=== PATIENT | male | born 1950 | race Caucasian/White ===

== ENCOUNTER → 2017-09-30 | Outpatient (CLI) | payer MEDICARE, MEDICAID ==
--- NOTE | 2017-09-30 10:05 | Diagnostic Imaging Report ---
INDICATION: Left testicular pain. FINDINGS: The right testicle is surgically absent. The left testicle measures 5.3 x 1.8 x 3.5 cm. There is homogeneous echotexture throughout the left testicle. No mass is identified. There is normal blood flow to the left testicle. No hydrocele or varicocele is identified. There appears to be echogenicity within the left inguinal canal suggestive of left inguinal hernia. IMPRESSION: No evidence of testicular mass or vascular compromise. There does appear to be left inguinal hernia. Dictated by: Dictated on workstation # [id number]
== END ==
LOC: RAD 08:21
PROVIDERS: ATTEND Urology
DX: N50.811 Right testicular pain (principal); Z85.47 Personal history of malignant neoplasm of testis
CPT/HCPCS: 76870

== ENCOUNTER 2017-11-03 05:41 | Outpatient (CLI) | payer MEDICARE, MEDICAID ==
[~2017-11-03] VITALS: Ht 177.8 cm; Wt 93.0 kg
[2017-11-03] MEDS ORDERED: HYDR12.525 PO (14:01)
[2017-11-03] MEDS ORDERED: ATEN100T PO (14:01)
[2017-11-03] MEDS ORDERED: TAMS0.4C2 PO (14:01)
[2017-11-03] MEDS ORDERED: AMLO10TA2 PO (14:01)
== END 2017-11-03 14:14 ==
LOC: PREOP 05:41
PROVIDERS: ATTEND Surgery
DX: Z01.818 Encounter for other preprocedural examination (principal); K40.90 Unilateral inguinal hernia, without obstruction or gangrene, not specified as recurrent

== ENCOUNTER 2017-11-05 08:04 | Day surgery (SDC) | payer MEDICARE, MEDICAID ==
[~2017-11-05] VITALS: Ht 177.8 cm; Wt 93.0 kg
[~2017-11-05 08:04] MED LIST: AMLO10TA2 PO; ATEN100T PO; HYDR12.525 PO; TAMS0.4C2 PO
--- OUTSIDE RECORDS SUMMARY | 2017-11-05 08:08 | XMS REPORT ---
Author Author MELI MELARA [facility] Address [address] [place] [address] Care Team Providers Care Yellow Pages Space Salesperson Name Role Phone MELI MELARA Unavailable PROBLEMS Type Condition ICD9-CM Code [id number] Code Onset Dates Condition Status SNOMED Code Problem VANESSA (obstructive sleep apnea) G47.33 Active 62530239 Problem Other chronic pain G89.29 Active 40874963 Problem Hypertension, benign I10 Active 48091073 Problem Essential hypertension I10 Active 40587887 Problem Hypercholesterolemia E78.0 Active 42866827 ALLERGIES Substance Reaction Event Type Date Status Sinemet Unknown Drug Allergy Jul, Active Lipitor Unknown Drug Allergy Jul, Active SOCIAL HISTORY No smoking Hx information available PLAN OF CARE VITAL SIGNS Height 70 in 2016-07-22 Weight 203.6 lbs 2016-07-22 Temperature 97.8 degrees Fahrenheit 2016-07-22 Heart Rate 82 bpm 2016-07-22 Respiratory Rate 20 2016-07-22 BMI 29.21 kg/m2 2016-07-22 Blood pressure systolic 122 mmHg 2016-07-22 Blood pressure diastolic 80 mmHg 2016-07-22 MEDICATIONS Medication Instructions Dosage Frequency Start Date End Date Duration Status Valium 10 mg take 1 tablet by Oral route 2 times per day as needed Aug, Active Fish Oil 1 gram 3 capsule by Oral route 1 time per day November, Active Atenolol 100 MG Orally Once a day 1 tablet 24h 30 Active Amlodipine Besylate 10 MG Orally Once a day 1 tablet 24h 30 Active RESULTS No Results PROCEDURES Procedure Date Ordered Related Diagnosis Body Site JOINT INJECTION-LARGE JOINT 2016-07-22 N/A DRAIN/INJECT, JOINT/BURSA Jul 22, 2016 Office Visit, Est Pt., Level 2 Jul 22, 2016 [facility] VISIT ESTABLISHED PATIENT Jul 22, 2016 IMMUNIZATIONS No Known Immunizations
--- OUTSIDE RECORDS SUMMARY | 2017-11-05 08:08 | XMS REPORT ---
Author Author MELI MELARA Organization [employer] Address Unknown Phone Unavailable Care Team Providers Care Landscape Contractor Name Role Phone MELI MELARA CP Unavailable Allergies No Known Allergies Problems Problem Type Condition Code Onset Dates Condition Status Problem Allergic rhinitis due to pollen 477.0 Active Problem Hypertension 401.9 Active Problem Anxiety state, unspecified 300.00 Active Problem Hypertension, benign I10 Active Problem DTAP TEST V06.1 Active Problem Need for prophylactic vaccination and inoculation, Influenza V04.81 Active Problem Pure hypercholesterolemia 272.0 Active Problem Inguinal hernia without mention of obstruction or gangrene, unilateral or unspecified, (not specified as recurrent) 550.90 Active Medications Medication Code System Code Instructions Start Date End Date Status Dosage Amlodipine Besylate [facility] [address]-57 5 MG Orally Once a day 1 tablet Results No Known Results Summary Purpose [employer] Submission
--- OUTSIDE RECORDS SUMMARY | 2017-11-05 08:08 | XMS REPORT ---
Author Author MELI MELARA [facility] Address [address] [place] [address] Care Team Providers Care Soaping Department Supervisor Name Role Phone MELI MELARA Unavailable PROBLEMS Type Condition ICD9-CM Code [id number] Code Onset Dates Condition Status SNOMED Code Problem VANESSA (obstructive sleep apnea) G47.33 Active 84649830 Problem Other chronic pain G89.29 Active 08518678 Problem Hypertension, benign I10 Active 19744920 Problem Essential hypertension I10 Active 48326850 Problem Hypercholesterolemia E78.0 Active 29902284 ALLERGIES No Information SOCIAL HISTORY Never Assessed PLAN OF CARE VITAL SIGNS MEDICATIONS Medication Instructions Dosage Frequency Start Date End Date Duration Status Valium 10 MG Orally Twice a day 1 tablet as needed 12h Aug, 28 days Active RESULTS No Results PROCEDURES No Known procedures IMMUNIZATIONS No Known Immunizations MEDICAL (GENERAL) HISTORY Type Description Date Medical History hypertension Medical History hereditary spherocytosis Medical History hyperlipidemia Medical History insomnia Medical History testicular cancer Medical History restless leg syndrome Medical History Gout Medical History allergic rhinitis Medical History anxiety Surgical History orchiectomy with radiation 1984 Hospitalization History surgery
--- OUTSIDE RECORDS SUMMARY | 2017-11-05 08:08 | XMS REPORT ---
Author Author MELI MELARA Organization [employer] Address Unknown Phone Unavailable Care Team Providers Care Remote Medical Coder Name Role Phone MELI MELARA CP Unavailable Allergies, Adverse Reactions, Alerts Substance Reaction Event Type Sinemet Info Not Available Drug Allergy Norvasc Info Not Available Drug Allergy Lipitor Info Not Available Drug Allergy Problems Problem Type Condition ICD-9 Code Onset Dates Condition Status Assessment HTN (hypertension) 401.9 Active Problem Anxiety state, unspecified 300.00 Active Problem Pure hypercholesterolemia 272.0 Active Problem Hypertension 401.9 Active Problem Need for prophylactic vaccination and inoculation, Influenza V04.81 Active Problem Allergic rhinitis due to pollen 477.0 Active Problem Inguinal hernia without mention of obstruction or gangrene, unilateral or unspecified, (not specified as recurrent) 550.90 Active Problem DTAP TEST V06.1 Active Medications Medication Code System Code Instructions Start Date End Date Status Dosage Fish Oil [facility] [address]-93 1 gram November 11, 2011 3 capsule by Oral route 1 time per day Zinc [facility] [address]382 100 MG Orally Once a day 1 tablet with a meal Vitamin D [facility] [address]-97 1000 UNIT Orally Once a day 1 tablet Procedures Procedure Coding System Code Date Office Visit, Est Pt., Level 3 CPT-4 44147 Feb 21, 2015 [facility] VISIT ESTABLISHED PATIENT CPT-4 G0467 Feb 21, 2015 Vital Signs Date/Time: Feb 21, 2015 Temperature 98.0 F Weight 199 lbs Height 70 in BMI 28.55 Index Blood Pressure Diastolic 102 mmHg Blood Pressure Systolic 150 mmHg Cardiac Monitoring Heart Rate 80 bpm Results No Known Results Summary Purpose [employer]ClinicalWorks Submission
--- OUTSIDE RECORDS SUMMARY | 2017-11-05 08:08 | XMS REPORT ---
Author Author MELI MELARA [facility] e[employer] Address Unknown Phone Unavailable Care Team Providers Care Autoclave Operator Name Role Phone MELI MELARA CP Unavailable Allergies No Known Allergies Problems Problem Type Condition Code Onset Dates Condition Status Assessment Encounter for immunization Z23 Active Problem Anxiety state, unspecified 300.00 Active Problem Pure hypercholesterolemia 272.0 Active Problem Hypertension 401.9 Active Problem Need for prophylactic vaccination and inoculation, Influenza V04.81 Active Problem Allergic rhinitis due to pollen 477.0 Active Problem Inguinal hernia without mention of obstruction or gangrene, unilateral or unspecified, (not specified as recurrent) 550.90 Active Problem DTAP TEST V06.1 Active Medications No Known Medications Procedures Procedure Coding System Code Date ADMN FLU VAC NO FEE SCHED SAME DAY CPT-4 G0008 Apr 05, 2015 FLUARIX QUAD (3 & UP)-GSK-2014 CPT-4 33585 Apr 05, 2015 Results No Known Results Immunizations Vaccine Administration Date FLUARIX QUAD (3 & UP)-GSK-2014Apr 05, 2015 Summary Purpose eClinicalWorks Submission
--- OUTSIDE RECORDS SUMMARY | 2017-11-05 08:08 | XMS REPORT ---
Author Author MELI MELARA Organization [facility] Address [address] [place] [address] Care Team Providers Care Information Assurance Manager Name Role Phone MELI MELARA Unavailable PROBLEMS Type Condition ICD9-CM Code [id number] Code Onset Dates Condition Status SNOMED Code Problem VANESSA (obstructive sleep apnea) G47.33 Active 86211142 Problem Other chronic pain G89.29 Active 03364408 Problem Hypertension, benign I10 Active 67292935 Problem Essential hypertension I10 Active 21373449 Problem Hypercholesterolemia E78.0 Active 89918805 ALLERGIES No Information SOCIAL HISTORY Never Assessed PLAN OF CARE VITAL SIGNS Height 70 in 2016-08-20 Blood pressure systolic 140 mmHg 2016-08-20 Blood pressure diastolic 88 mmHg 2016-08-20 MEDICATIONS Medication Instructions Dosage Frequency Start Date End Date Duration Status Fish Oil 1 gram 3 capsule by Oral route 1 time per day November, Active Valium 10 mg take 1 tablet by Oral route 2 times per day as needed Aug, Active Amlodipine Besylate 10 MG Orally Once a day 1 tablet 24h 30 Active Atenolol 100 MG Orally Once a day 1 tablet 24h 30 Active RESULTS No Results PROCEDURES No Known procedures IMMUNIZATIONS No Known Immunizations MEDICAL (GENERAL) HISTORY Type Description Date Medical History hypertension Medical History hereditary spherocytosis Medical History hyperlipidemia Medical History insomnia Medical History testicular cancer Medical History restless leg syndrome Medical History Gout Medical History allergic rhinitis Medical History anxiety Surgical History orchiectomy with radiation 1983 Hospitalization History surgery
--- OUTSIDE RECORDS SUMMARY | 2017-11-05 08:09 | XMS REPORT ---
Author Author MELI MELARA Organization [employer] Address Unknown Phone Unavailable Care Team Providers Care Color Straining Bag Washer Name Role Phone MELI MELARA CP Unavailable Allergies No Known Allergies Problems Problem Type Condition Code Onset Dates Condition Status Problem Hypertension, benign I10 Active Problem Hypercholesterolemia E78.0 Active Medications Medication Code System Code Instructions Start Date End Date Status Dosage Valium [facility] [address]-72 10 MG Aug 07, 2014 take 1 tablet by Oral route 2 times per day Results No Known Results Summary Purpose eClinicalWorks Submission
--- OUTSIDE RECORDS SUMMARY | 2017-11-05 08:09 | XMS REPORT ---
Author Author MELI MELARA Organization [employer] Address Unknown Phone Unavailable Care Team Providers Care Jacquard Loom Heddles Tier Name Role Phone MELI MELARA CP Unavailable Allergies No Known Allergies Problems Problem Type Condition Code Onset Dates Condition Status Problem Hypertension, benign I10 Active Assessment Hypertension 401.9 Active Problem Hypercholesterolemia E78.0 Active Medications Medication Code System Code Instructions Start Date End Date Status Dosage Valium [facility] [address]-60 10 MG Aug 07, 2014 take 1 tablet by Oral route 2 times per day Results No Known Results Summary Purpose eClinicalWorks Submission
--- OUTSIDE RECORDS SUMMARY | 2017-11-05 08:09 | XMS REPORT ---
Author Author MELI MELARA Organization [employer] Address Unknown Phone Unavailable Care Team Providers Care Stencil Inspector Name Role Phone MELI MELAAR CP Unavailable Allergies, Adverse Reactions, Alerts Substance Reaction Event Type Sinemet Info Not Available Drug Allergy Norvasc Info Not Available Drug Allergy Lipitor Info Not Available Drug Allergy Problems Problem Type Condition ICD-9 Code Onset Dates Condition Status Assessment Hypertension 401.9 Active Problem Anxiety state, unspecified [...] Start Date End Date Status Dosage Valium [facility] [address]-37 10 MG Aug 07, 2014 take 1 tablet by Oral route 2 times per day Vitamin D [facility] [address]-79 1000 UNIT Orally Once a day 1 tablet Fish Oil [facility] [address]-12 1 gram November 11, 2011 3 capsule by Oral route 1 time per day Zinc [facility] [address]69 100 MG Orally Once a day 1 tablet with a meal Metoprolol Tartrate [facility] 24367405137 100 MG TAKE ONE TABLET BY MOUTH TWICE DAILY Amlodipine Besylate [facility] 78366528854 2.5 MG Orally Once a day 1 tablet Procedures Procedure Coding System Code Date Office Visit, Est Pt., Level 3 CPT-4 03514 Mar 23, 2015 [facility] VISIT ESTABLISHED PATIENT CPT-4 G0467 Mar 23, 2015 Vital Signs Date/Time: Mar 23, 2015 Temperature 97.5 F Weight 195.1 lbs Height 70 in BMI 27.99 Index Blood Pressure Diastolic 94 mmHg Blood Pressure Systolic 130 mmHg Cardiac Monitoring Heart Rate 68 bpm Results No Known Results Summary Purpose eClinicalWorks Submission
--- OUTSIDE RECORDS SUMMARY | 2017-11-05 08:09 | XMS REPORT ---
Author Author MELI MELARA Organization [employer] Address Unknown Phone Unavailable Care Team Providers Care Purchase Request Editor Name Role Phone MELI MELARA CP Unavailable Allergies, Adverse Reactions, Alerts Substance Reaction Event Type Sinemet Info Not Available Drug Allergy Lipitor Info Not Available Drug Allergy Problems Problem Type Condition Code Onset Dates Condition Status Problem Hypertension, benign I10 Active Assessment Benign non-nodular prostatic hyperplasia with lower urinary tract symptoms N40.1 Active Problem Hypercholesterolemia E78.0 Active Assessment Hypertension, benign I10 Active Medications Medication Code System Code Instructions Start Date End Date Status Dosage Metoprolol Tartrate [facility] [address]-38 100 MG Twice a day 1 tablet Triamcinolone Acetonide [facility] [address]-92 0.1 % Externally Twice a day November 12, 2015 Apply thin layer to the rash Fish Oil [facility] [address]-53 1 gram November 11, 2011 3 capsule by Oral route 1 time per day Zinc [facility] [address]42 100 MG Orally Once a day 1 tablet with a meal Valium [facility] [address]-44 10 MG Aug 07, 2014 take 1 tablet by Oral route 2 times per day Amlodipine Besylate [facility] [address]-28 10 MG Orally Once a day 1 tablet Vistaril [facility] [address]-80 25 MG Orally every 8 hrs November 12, 2015 1 capsule as needed Vitamin D [facility] [address]-70 1000 UNIT Orally Once a day 1 tablet Procedures Procedure Coding System Code Date Office Visit, Est Pt., Level 3 CPT-4 20521 January 17, 2016 [facility] VISIT ESTABLISHED PATIENT CPT-4 G0467 January 17, 2016 Vital Signs Date/Time: January 17, 2016 Cardiac Monitoring Heart Rate 64 bpm Weight 197.7 lbs Height 70 in Blood Pressure Diastolic 86 mmHg Blood Pressure Systolic 136 mmHg Results No Known Results Summary Purpose eClinicalWorks Submission
--- OUTSIDE RECORDS SUMMARY | 2017-11-05 08:09 | XMS REPORT ---
Author Author MELI MELARA [facility] eClinicalWorks Address Unknown Phone Unavailable Care Team Providers Care Mining Consultant Name Role Phone MELI MELARA CP Unavailable Allergies, Adverse Reactions, Alerts Substance Reaction Event Type Sinemet Info Not Available Drug Allergy Lipitor Info Not Available Drug Allergy Problems Problem Type Condition Code Onset Dates Condition Status Problem Hypercholesterolemia E78.0 Active Problem Hypertension, benign I10 Active Problem Essential hypertension I10 Active Assessment Essential hypertension I10 Active Assessment Pure hypercholesterolemia E78.00 Active Medications Medication Code System Code Instructions Start Date End Date Status Dosage Valium [facility] [address]-21 10 mg Aug 07, 2014 take 1 tablet by Oral route 2 times per day as needed Fish Oil [facility] [address]-35 1 gram November 11, 2011 3 capsule by Oral route 1 time per day Procedures Procedure Coding System Code Date Office Visit, Est Pt., Level 3 CPT-4 33151 Apr 24, 2016 [facility] VISIT ESTABLISHED PATIENT CPT-4 G0467 Apr 24, 2016 Vital Signs Date/Time: Apr 24, 2016 Cardiac Monitoring Heart Rate 84 bpm Weight 199.6 lbs Height 70 in BMI 28.64 Index Blood Pressure Diastolic 84 mmHg Blood Pressure Systolic 132 mmHg Results No Known Results Summary Purpose eClinicalWorks Submission
--- OUTSIDE RECORDS SUMMARY | 2017-11-05 08:09 | XMS REPORT ---
Author Author MELI MELARA Organization [facility] Address [address] [place] [address] Care Team Providers Care Carry Out Clerk Name Role Phone KELTON MELI Unavailable PROBLEMS Type Condition ICD9-CM Code [id number] Code Onset Dates Condition Status SNOMED Code Problem VANESSA (obstructive sleep apnea) G47.33 Active 84901966 Problem Other chronic pain G89.29 Active 40899099 Problem Hypertension, benign I10 Active 29626938 Problem Essential hypertension I10 Active 34002412 Problem Hypercholesterolemia E78.0 Active 72449481 ALLERGIES No Information ENCOUNTERS Encounter Location Date Diagnosis [place] [address] [address] Sep, Nocturnal polyuria R35.1 and Dysuria R30.0 [facility] [address] [address]- 8435 Jun, Hypertension, benign I10 [place] [address] 7110[address]- 3656 Apr, Encounter for immunization Z23 [place] [address] [address]- 60[address] Jan, Hypertension, benign I10 and VANESSA (obstructive sleep apnea) G47.33 [facility] [address] [place] [id number] [place] [address] 82205- 5650 Jan, Hypertension, benign I10 and VANESSA (obstructive sleep apnea) G47.33 [place] [address] [address]- [address] Jan, [place] [address] 25944- 7082 November, Hypertension, benign I10 [place] [address] [place] [id number] [place] [address] 48739- 6787 15 Aug, 2016 [facility] [address] [place] [id number] [place] [address] 07328- 1366 17 Jul, 2016 Other chronic pain G89.29 and Pain in left shoulder M25.512 [facility] [address] [place] [id number] [place] [address] 34967- 3001 16 Jul, 2016 Other chronic pain G89.29 ; Pain in left shoulder M25.512 and Hypertension, benign I10 [facility] [address] [place] [id number] [place] [address] 43667- 9630 Jun, [facility] [address] 93282- 8854 Jun, Hypertension, benign I10 [facility] [address] [place] [id number] [place] [address] 18617- 5251 Apr, Essential hypertension I10 and Pure hypercholesterolemia E78.00 [facility] [address] [place] [id number] [place] [address] 23353- 7796 Feb, [facility] [address] [place] [id number] [place] [address] 02945- 0774 Jan, [facility] [address] [place] [id number] [place] [address] 20825- 8939 Jan, [facility] [address] [place] [id number] [place] [address] 20340- 2265 Jan, Benign non-nodular prostatic hyperplasia with lower urinary tract symptoms N40.1 and Hypertension, benign I10 [facility] [id number] [place] [address] 01649- 4401 Jan, Benign non-nodular prostatic hyperplasia with lower urinary tract symptoms N40.1 and Hypertension, benign I10 [facility] [address] [place] [id number] [place] [address] 36045- 6744 Dec, [facility] [address] [place] [id number] [place] [address] 53210 -7114 November, Contact dermatitis, unspecified contact dermatitis type, unspecified trigger L25.9 [facility] [address] [place] [id number] [place] [address] 80859- 4287 Oct, [facility] [address] [place] [id number] [place] [address] 02519- 7616 Oct, Hypertension, benign I10 [facility] [address] 35735- 8457 Sep, [facility] [address] [place] [id number] [place] [address] 31748 -4777 Aug, Left shoulder pain M25.512 [facility] [address] 91319- 7876 Jul, Hypertension, benign I10 [facility] [address] [place] [id number] [place] [address] 27638- 3533 Jul, Hypertension 401.9 [facility] [address] 75774- 8208 May, Hypertension, benign I10 ; Anxiety F41.9 and Hypercholesterolemia E78.0 [facility] [address] 58157- 2987 May, [facility] [address] [place] [id number] [place] [address] 70831- 5498 Apr, [facility] [address] 90221- 4320 Apr, Hypertension, benign I10 [facility] [address] [place] [id number] [place] [address] 63849- 4110 Apr, Hypertension, benign I10 [facility] [address] 00293- 6235 Apr, Encounter for immunization Z23 [facility] [address] [place] [id number] [place] [address] 11112- 1980 Mar, Hypertension 401.9 [place] [address] [facility] [id number] [address] Feb, HTN (hypertension) 401.9 [facility] [address] [facility] [id number] [place] [address] Jan, HTN (hypertension) 401.9 [facility] [address] [facility] [id number] [place] [address]- 6226 Dec, Hypertension 401.9 [facility] [address] [facility] [id number] [place] 6101 November, Hypertension 401.9 [facility] [address] [facility] [id number] [place] [address] November, [facility] [address] [facility] [id number] [place] [address]- 0081 November, [facility] [address] [address]- 9353 November, [facility] [address] [facility] [id number] [place] [address]- 6609 Oct, [facility] [address] [place] [id number] [address]- 9403 Oct, [facility] [address] [place] [id number] [place] [address]- 1404 Sep, [facility] [address] [place] [id number] [address]- 6683 Sep, [facility] [address] [facility] [id number][place] [address]- 1177 Sep, [facility] [address] [id number] [place] [address]- 1187 Sep, [facility] [address] [facility] [id number] [place] 6076 Sep, [facility] [address] [facility] [id number] [address]- 8363 Sep, [facility] [place] [facility] [address] [id number] [place] [address]- 7589 Sep, [facility] [place] [facility] [address] [id number] [place] [address]- 6301 Sep, [facility] [place] [facility] [address] [id number] [place] [address]- 7276 Aug, 2014 [facility] [place] [facility] [address] [id number] [place] [address]- 4126 Aug, [facility] [place] [facility] [address] [id number] [place] [address]- 6046 Aug, 2014 [facility] [place] [facility] [address] [id number] [place] [address]- 4366 Aug, [facility] [place] [facility] [address] [id number] [place] [address]- 4325 Aug, [facility] [place] [facility] [address] [id number] [place] [address]- 6463 Aug, [facility] [place] [facility] [address] [id number] [place] [address]- 4252 Jul, [facility] [place] [facility] [address] [id number] [place] [address]- 5949 Jul, [facility] [place] [facility] [address] [id number] [place] [address]- 6865 Jul, [facility] [place] [facility] [address] [id number] [place] [address]- 4620 Jul, [facility] [place] [facility] [address] [id number] [place] [address]- 2121 Jul, [facility] [place] [facility] [address] [id number] [place] [address]- 0550 Jul, [facility] [place] [facility] [address] [id number] [place] [address]- 8069 Jul, [facility] [place] [facility] [address] [id number] [place] [address]- 1991 Jul, [facility] [place] [facility] [address] [id number] [place] [address]- 0811 Jul, [facility] [place] [facility] [address] [id number] [place] [address]- 5120 Jul, [facility] [place] [facility] [address] [id number] [place] [address]- 3000 Jun, [facility] [place] [facility] [address] [id number] [place] [address]- 3003 Jun, [facility] [place] [facility] [address] [id number] [place] [address]- 3281 May, [facility] [place] [facility] [address] [id number] [place] [address]- 4817 May, [facility] [place] [facility] [address] [id number] [place] [address]- 9941 Apr, [facility] [place] [facility] [address] [id number] [place] [address]- 3491 Apr, [facility] [place] [facility] [address] [id number] [place] [address]- 3865 Apr, [facility] [place] [facility] [address] [id number] [place] [address]- 6568 Apr, [facility] [place] [facility] [address] [id number] [place] [address]- 5332 Apr, [facility] [place] [facility] [address] [id number] [address]- 9314 Apr, [facility] [place] [facility] [address] [id number] [place] [address]- 7933 Apr, [facility] [place] [facility] [address] [id number] [place] [address]- 6669 Apr, [facility] [place] [facility] [address] [id number][place] [address]- 4526 Apr, [facility] [place] [facility] [address] [id number] [place] [address]- 5984 Apr, [facility] [place] [facility] [address] [id number] [place] [address]- 6486 Mar, [facility] [place] [facility] [address] [id number] [place] 7070 Mar, [facility] [place] [facility] [address] [id number] [place] [address]- 3255 November, [facility] [place] [facility] [address] [id number] [place] [address]- 7929 November, [facility] [place] [facility] [address] [id number] [place] [address]- 0136 Sep, [facility] [place] [facility] [address] [id number] [place] [address]- 7133 Sep, [facility] [place] [facility] [address] [id number] [place] [address]- 9599 Jun, [facility] [place] [facility] [address] [id number] [place] [address]- 8694 Jun, [facility] [place] [facility] [address] [id number] [place] [address]- 6191 Jun, [facility] [place] [facility] [address] [id number] [place] [address]- 1718 Jun, [facility] [place] [facility] [address] [id number] [place] [address]- 4989 Apr, [facility] [place] [facility] [address] [id number] [place] [address]- 7970 24 Mar, 2013 [facility] [place] [facility] [address] [id number] [place] [address]- 3526 06 Mar, 2013 [facility] [place] [facility] [address] [id number] [place] [address]- 3785 06 Mar, 2013 [facility] [place] [facility] [address] [id number] [place] [address]- 1381 Feb, [facility] [place] [facility] [address] [id number] [place] [address]- 0209 Jan, [facility] [place] [facility] [address] [id number] [place] [address]- 6928 November, [facility] [place] [facility] [address] [id number] [place] [address]- 8085 November, [facility] [place] [facility] [address] [id number] [place] [address]- 9195 Oct, [facility] [place] [facility] [address] [id number] [place] [address]- 6831 Aug, [facility] [place] [facility] [address] [id number] [place] [address]- 4517 Jun, [facility] [place] [facility] [address] [id number] [place] [address]- 5025 Jun, [facility] [place] [facility] [address] [id number] [place] [address]- 5350 May, [facility] [place] [facility] [address] [id number] [place] [address]- 1038 May, [facility] [place] [facility] [address] [id number] [place] [address]- 9509 May, [facility] [place] [facility] [address] [id number][place] [address]- 3392 May, [facility] [place] [facility] [address] [id number][place] [address]- 3790 May, [facility] [place] [facility] [address] [id number] [place] [address]- 2674 May, [facility] [place] [facility] [address] [id number] [place] [address]- 8953 May, [facility] [place] [facility] [address] [id number] [place] [address]- 9018 May, [facility] [place] [facility] [address] [id number] [place] [address] 2546 May, [facility] [address] [id number] [place] [address]- 1496 May, [facility] [address] [id number] [place] [address] 2546 Apr, [facility] [address] [id number] [place] [address]- 0776 Mar, [facility] [address] [id number] [place] [address] 2546 Mar, [facility] [address] [id number] [place] [address]- 9966 Feb, [facility] [address] [id number] [place] [address]- 2676 November, [facility] [address] [id number] [place] [address]- 9927 Sep, [facility] [address] [id number] [place] [address]- 7321 14 Sep, 2011 [facility] [address] [id number] [place] [address]- 4046 Sep, [facility] [address] [facility] [id number] [place] [address]- 0083 Sep, [facility] [address] [id number] [place] [address]- 9096 Jul, [facility] [address] [id number] [place] [address]- 2775 Jun, [facility] [place] [facility] [address] [id number] [place] [address]- 3616 Jun, [facility] [place] [facility] [address] [id number] [place] [address]- 2546 Jun, [facility] [address] [id number] [place] [address]- 7366 Apr, [facility] [address] [id number] [address]- 7030 Jan, [facility] [address] [address]- 8165 Dec, [facility] [address] 5934 Aug, [facility] [address] [address]- 0993 May, [facility] [address] [address]- 4636 May, [facility] [address] [address]- 6917 May, [facility] [address] [address]- 3418 May, [facility] [address] [address]- 1503 Apr, [facility] [address] [place] [id number] [address]- 8659 Aug, [facility] [address] [place] [id number] [address]- 3031 Jul, [facility] [address] [id number] [address]- 4495 Dec, IMMUNIZATIONS No Known Immunizations SOCIAL HISTORY Never Assessed REASON FOR VISIT Lab (walk-in) PLAN OF CARE VITAL SIGNS MEDICATIONS No Known Medications RESULTS Name Result Date Reference Range TSH 2017-01-30 TSH 0.762 0.450-4.500 CBC 2017-01-30 WBC 8.1 3.4-10.8 RBC 4.94 4.14-5.80 Hemoglobin 14.7 12.6-17.7 Hematocrit 44.5 37.5-51.0 MCV 90 79-97 MCH 29.8 26.6-33.0 MCHC 33.0 31.5-35.7 RDW 13.6 12.3-15.4 Platelets 210 150-379 Neutrophils 57 Lymphs 35 Monocytes 6 Eos 2 Basos 0 Neutrophils (Absolute) 4.6 1.4-7.0 Lymphs (Absolute) 2.8 0.7-3.1 Monocytes(Absolute) 0.5 0.1-0.9 Eos (Absolute) 0.1 0.0-0.4 Baso (Absolute) 0.0 0.0-0.2 Immature Granulocytes 0 Immature Grans (Abs) 0.0 0.0-0.1 LIPID PANEL 2017-01-30 Cholesterol, Total 233 100-199 Triglycerides 115 0-149 HDL Cholesterol 37 >39 VLDL Cholesterol Parth 23 5-40 LDL Cholesterol Calc 173 0-99 Comment: CMP 2017-01-30 Glucose, Serum 95 65-99 BUN 16 8-27 Creatinine, Serum 1.10 0.76-1.27 eGFR If NonAfricn Am 69 >59 eGFR If Africn Am 79 >59 BUN/Creatinine Ratio 15 10-24 Sodium, Serum 138 134-144 Potassium, Serum 4.5 3.5-5.2 Chloride, Serum 99 96-106 Carbon Dioxide, Total 23 18-29 Calcium, Serum 9.8 8.6-10.2 Protein, Total, Serum 8.2 6.0-8.5 Albumin, Serum 4.2 3.6-4.8 Globulin, Total 4.0 1.5-4.5 A/G Ratio 1.1 1.2-2.2 Bilirubin, Total 0.5 0.0-1.2 Alkaline Phosphatase, S 86 39-117 AST (SGOT) 18 0-40 ALT (SGPT) 22 0-44 PROCEDURES Procedure Date Ordered Result Body Site LAB NOT BILLED BY [facility] January 30, 2017 VENIPUNCT, ROUTINE* January 30, 2017 INSTRUCTIONS MEDICATIONS ADMINISTERED No Known Medications MEDICAL (GENERAL) HISTORY Type Description Date Medical History hypertension Medical History hereditary spherocytosis Medical History hyperlipidemia Medical History insomnia Medical History testicular cancer Medical History restless leg syndrome Medical History Gout Medical History allergic rhinitis Medical History anxiety Surgical History orchiectomy with radiation 1983 Hospitalization History surgery
--- OUTSIDE RECORDS SUMMARY | 2017-11-05 08:09 | XMS REPORT ---
Author Author MELI MELARA Organization [employer] Address Unknown Phone Unavailable Care Team Providers Care Cat Operator Name Role Phone MELI MELARA CP Unavailable Allergies No Known Allergies Problems Problem Type Condition Code Onset Dates Condition Status Problem Hypertension, benign I10 Active Problem Hypercholesterolemia E78.0 Active Medications Medication Code System Code Instructions Start Date End Date Status Dosage Simvastatin [facility] [address]-73 20 mg Orally Once a day January 21, 2016 1 tablet in the evening Results No Known Results Summary Purpose [employer] Submission
--- OUTSIDE RECORDS SUMMARY | 2017-11-05 08:09 | XMS REPORT ---
Author Author MELI MELARA Organization [employer] Address Unknown Phone Unavailable Care Team Providers Care Assistant Customer Service Manager Name Role Phone MELI MELARA CP Unavailable Allergies, Adverse Reactions, Alerts Substance Reaction Event Type Sinemet Info Not Available Drug Allergy Lipitor Info Not Available Drug Allergy Problems Problem Type Condition Code Onset Dates Condition Status Problem Hypertension, benign I10 Active Assessment Hypertension, benign I10 Active Problem Hypercholesterolemia E78.0 Active Assessment Anxiety F41.9 Active Assessment Hypercholesterolemia E78.0 Active Medications Medication Code System Code Instructions Start Date End Date Status Dosage Metoprolol Tartrate [facility] [address]-06 100 MG Twice a day 1 tablet Amlodipine Besylate [facility] [address]-69 10 MG Orally Once a day 1 tablet Loratadine [facility] [address]-54 10 MG Once a day Aug 07, 2014 1 capsule Hydrochlorothiazide [facility] [address]-95 12.5 MG Orally Once a day Jun 04, 2015 1 capsule Valium [facility] [address]-45 10 MG Aug 07, 2014 take 1 tablet by Oral route 2 times per day Zinc [facility] 95399-52883 100 MG Orally Once a day 1 tablet with a meal Fish Oil [facility] [address]-66 1 gram November 11, 2011 3 capsule by Oral route 1 time per day Procedures Procedure Coding System Code Date Office Visit, Est Pt., Level 3 CPT-4 90799 Jun 04, 2015 [facility] VISIT ESTABLISHED PATIENT CPT-4 G0467 Jun 04, 2015 Vital Signs Date/Time: Jun 04, 2015 Temperature 98.0 F Weight 200 lbs Height 70 in BMI 28.69 Index Blood Pressure Diastolic 90 mmHg Blood Pressure Systolic 142 mmHg Cardiac Monitoring Heart Rate 70 bpm Results No Known Results Summary Purpose [employer] Submission
--- OUTSIDE RECORDS SUMMARY | 2017-11-05 08:09 | XMS REPORT ---
Author Author MELI MELARA Organization [employer] Address Unknown Phone Unavailable Care Team Providers Care Director And Professor Name Role Phone MELI MELARA CP Unavailable Allergies, Adverse Reactions, Alerts Substance Reaction Event Type Sinemet Info Not Available Drug Allergy Lipitor Info Not Available Drug Allergy Problems Problem Type Condition Code Onset Dates Condition Status Problem Hypertension, benign I10 Active Assessment Hypertension, benign I10 Active Problem Hypercholesterolemia E78.0 Active Medications Medication Code System Code Instructions Start Date End Date Status Dosage Zinc [facility] 99194-98899 100 MG Orally Once a day 1 tablet with a meal Valium [facility] [address]-06 10 MG Aug 07, 2014 take 1 tablet by Oral route 2 times per day Metoprolol Tartrate [facility] [address]-22 100 MG Twice a day 1 tablet Fish Oil [facility] [address]-63 1 gram November 11, 2011 3 capsule by Oral route 1 time per day Hydrochlorothiazide [facility] [address]-34 12.5 MG Orally Once a day Jun 04, 2015 1 capsule Amlodipine Besylate [facility] [address]-77 10 MG Orally Once a day 1 tablet Procedures Procedure Coding System Code Date Office Visit, Est Pt., Level 3 CPT-4 16818 Aug 01, 2015 [facility] VISIT ESTABLISHED PATIENT CPT-4 G0467 Aug 01, 2015 Vital Signs Date/Time: Aug 01, 2015 Temperature 96.6 F Weight 199.1 lbs Height 70 in BMI 28.56 Index Blood Pressure Diastolic 80 mmHg Blood Pressure Systolic 142 mmHg Cardiac Monitoring Heart Rate 72 bpm Results No Known Results Summary Purpose [employer] Submission
--- OUTSIDE RECORDS SUMMARY | 2017-11-05 08:09 | XMS REPORT ---
Author Author MELI MELARA [facility] Address [address] [place] [address] Care Team Providers Care Financial Administrative Assistant Name Role Phone KELTON MELI Unavailable PROBLEMS Type Condition ICD9-CM Code [id number] Code Onset Dates Condition Status SNOMED Code Problem VANESSA (obstructive sleep apnea) G47.33 Active 00288871 Problem Other chronic pain G89.29 Active 74225194 Problem Hypertension, benign I10 Active 67352388 Problem Essential hypertension I10 Active 20001389 Problem Hypercholesterolemia E78.0 Active 02567114 ALLERGIES Substance Reaction Event Type Date Status Sinemet Unknown Drug Allergy Jun, Active Lipitor Unknown Drug Allergy Jun, Active SOCIAL HISTORY No smoking Hx information available PLAN OF CARE Activity Details Follow Up 4 Weeks Reason:htn VITAL SIGNS Height 70 in 2016-06-20 Weight 199.4 lbs 2016-06-20 Temperature 97.0 degrees Fahrenheit 2016-06-20 Heart Rate 80 bpm 2016-06-20 Respiratory Rate 20 2016-06-20 BMI 28.61 kg/m2 2016-06-20 Blood pressure systolic 150 mmHg 2016-06-20 Blood pressure diastolic 88 mmHg 2016-06-20 MEDICATIONS Medication Instructions Dosage Frequency Start Date End Date Duration Status Amlodipine Besylate 10 MG Orally Once a day 1 tablet 24h 30 Active Fish Oil 1 gram 3 capsule by Oral route 1 time per day November, Active Cetirizine HCl 10 mg Orally Once a day 1 tablet 24h Jun, Dec, 30 day(s) Active Valium 10 mg take 1 tablet by Oral route 2 times per day as needed Aug, Active Atenolol 100 MG Orally Once a day 1 tablet 24h Jun, 30 day(s) Active RESULTS No Results PROCEDURES Procedure Date Ordered Related Diagnosis Body Site [facility] VISIT ESTABLISHED PATIENT Jun 20, 2016 Office Visit, Est Pt., Level 3 Jun 20, 2016 IMMUNIZATIONS No Known Immunizations
--- OUTSIDE RECORDS SUMMARY | 2017-11-05 08:10 | XMS REPORT ---
Author Author MELI MELARA Organization [facility] Address [address] [place] [address] Care Team Providers Care Carpenter Rough Name Role Phone KELTON MELI Unavailable PROBLEMS Type Condition ICD9-CM Code [id number] Code Onset Dates Condition Status SNOMED Code Problem VANESSA (obstructive sleep apnea) G47.33 Active 92224102 Problem Other chronic pain G89.29 Active 83371176 Problem Hypertension, benign I10 Active 08033534 Problem Essential hypertension I10 Active 60810017 Problem Hypercholesterolemia E78.0 Active 85449779 ALLERGIES No Information ENCOUNTERS Encounter Location Date Diagnosis [place] [address] [address] Sep, Nocturnal polyuria R35.1 and Dysuria R30.0 [facility] [address] [address] Jun, Hypertension, benign I10 [place] [address] [address] Apr, Encounter for immunization Z23 [place] [address] [address]- [address] Jan, Hypertension, benign I10 and VANESSA (obstructive sleep apnea) G47.33 [facility] [address] [place] [id number] [place] [address]- [address] Jan, Hypertension, benign I10 and VANESSA (obstructive sleep apnea) G47.33 [place] [address] [address] Jan, [place] [address] [address] November, Hypertension, benign I10 [place] [address] [place] [id number] [place] [address]- 8411 15 Aug, 2016 [facility] [address] [place] [id number] [place] [address] 61670- 4473 17 Jul, 2016 Other chronic pain G89.29 and Pain in left shoulder M25.512 [facility] [address] [place] [id number] [place] [address] 49551- 6825 16 Jul, 2016 Other chronic pain G89.29 ; Pain in left shoulder M25.512 and Hypertension, benign I10 [facility] [address] [place] [id number] [place] [address] 16535- 1798 Jun, [facility] [address] [address]- [address] Jun, Hypertension, benign I10 [facility] [address] [place] [id number] [place] [address] 47738- 3103 Apr, Essential hypertension I10 and Pure hypercholesterolemia E78.00 [facility] [address] [place] [id number] [place] [address] 17809- 8792 Feb, [facility] [address] [place] [id number] [place] [address] 73135- 9435 Jan, [facility] [address] [place] [id number] [place] [address] 05308- 2872 Jan, [facility] [address] [place] [id number] [place] [address] 43785- 8638 Jan, Benign non-nodular prostatic hyperplasia with lower urinary tract symptoms N40.1 and Hypertension, benign I10 [facility] [id number] [place] [address] 59261- 2622 Jan, Benign non-nodular prostatic hyperplasia with lower urinary tract symptoms N40.1 and Hypertension, benign I10 [facility] [address] [place] [id number] [place] [address] 42700- 0404 Dec, [facility] [address] [place] [id number] [place] [address] 18[address] -3692 November, Contact dermatitis, unspecified contact dermatitis type, unspecified trigger L25.9 [facility] [address] [place] [id number] [place] [address] 76360- 4802 Oct, [facility] [address] [place] [id number] [place] [address] 57391- 4774 Oct, Hypertension, benign I10 [facility] [address] 70741- 1781 Sep, [facility] [address] [place] [id number] [place] [address]00 -2180 Aug, Left shoulder pain M25.512 [facility] [address] [address]15- 8092 Jul, Hypertension, benign I10 [facility] [address] [place] [id number] [place] [address] 27786- 1882 Jul, Hypertension 401.9 [facility] [address] [address]- 0514 May, Hypertension, benign I10 ; Anxiety F41.9 and Hypercholesterolemia E78.0 [facility] [address] 310[address]- 7768 May, [facility] [address] [place] [id number] [place] [address] 56426- 2922 Apr, [facility] [address] 91766- 9261 Apr, Hypertension, benign I10 [facility] [address] [place] [id number] [place] [address] 56122- 6944 Apr, Hypertension, benign I10 [facility] [address] 98296- 9678 Apr, Encounter for immunization Z23 [facility] [address] [place] [id number] [place] [address] 85391- 6043 Mar, Hypertension 401.9 [place] [address] [facility] [id number], [place] [address] Feb, HTN (hypertension) 401.9 [facility] [address] [facility] [id number] [place] [address] Jan, HTN (hypertension) 401.9 [facility] [address] [facility] [id number] [place] [address]- 1833 Dec, Hypertension 401.9 [facility] [address] [facility] [id number] [place] [address] November, Hypertension 401.9 [facility] [address] [facility] [id number] [place] 9799 November, [facility] [address] [facility] [id number] [place] [address]- 1609 November, [facility] [address] [place] [address]- 9517 November, [facility] [address] [facility] [id number] [place] [address]- 5764 Oct, [facility] [address] [place] [id number] [place] [address]- 1859 Oct, [facility] [address] [place] [id number] [place] [address]- 0909 Sep, [facility] [address] [place] [id number] [place] [address]- 4490 Sep, [facility] [address] [facility] [id number], [place] [address]- 4707 Sep, [facility] [address] [id number] [place] [address]- 0588 Sep, [facility] [address] [facility] [id number] [place] 4[address] Sep, [facility] [address] [facility] [id number], [place] [address]- 1149 Sep, [facility] [place] [facility] [address] [id number] [place] [address]- 5445 Sep, [facility] [place] [facility] [address] [id number] [place] [address]- 1464 Sep, [facility] [place] [facility] [address] [id number] [place] [address]- 8416 Aug, 2014 [facility] [place] [facility] [address] [id number] [place] [address]- 1546 Aug, [facility] [place] [facility] [address] [id number] [place] [address]- 2502 Aug, 2014 [facility] [place] [facility] [address] [id number] [place] [address]- 4373 Aug, [facility] [place] [facility] [address] [id number] [place] [address]- 8669 Aug, [facility] [place] [facility] [address] [id number] [place] [address]- 1211 Aug, [facility] [place] [facility] [address] [id number] [place] [address]- 2034 Jul, [facility] [place] [facility] [address] [id number] [place] [address]- 8501 Jul, [facility] [place] [facility] [address] [id number] [place] [address]- 4916 Jul, [facility] [place] [facility] [address] [id number] [place] [address]- 6981 Jul, [facility] [place] [facility] [address] [id number] [place] [address]- 3370 Jul, [facility] [place] [facility] [address] [id number] [place] [address]- 6382 Jul, [facility] [place] [facility] [address] [id number] [place] [address]- 9252 Jul, [facility] [place] [facility] [address] [id number] [place] [address]- 3530 Jul, [facility] [place] [facility] [address] [id number] [place] [address]- 6008 Jul, [facility] [place] [facility] [address] [id number] [place] [address]- 8348 Jul, [facility] [place] [facility] [address] [id number] [place] [address]- 9571 Jun, [facility] [place] [facility] [address] [id number] [place] [address]- 4040 Jun, [facility] [place] [facility] [address] [id number] [place] [address]- 8634 May, [facility] [place] [facility] [address] [id number] [place] [address]- 8610 May, [facility] [place] [facility] [address] [id number] [place] [address]- 7009 Apr, [facility] [place] [facility] [address] [id number] [place] [address]- 6578 Apr, [facility] [place] [facility] [address] [id number] [place] [address]- 6979 Apr, [facility] [place] [facility] [address] [id number] [place] [address]- 2049 Apr, [facility] [place] [facility] [address] [id number] [place] [address]- 8417 Apr, [facility] [place] [facility] [address] [id number], [place] [address]- 1873 Apr, [facility] [place] [facility] [address] [id number] [place] [address]- 5033 Apr, [facility] [place] [facility] [address] [id number] [place] [address]- 0881 Apr, [facility] [place] [facility] [address] [id number], [place] [address]- 5520 Apr, [facility] [place] [facility] [address] [id number] [place] [address]- 4808 Apr, [facility] [place] [facility] [address] [id number] [place] [address]- 7196 Mar, [facility] [place] [facility] [address] [id number] [place] 3430 Mar, [facility] [place] [facility] [address] [id number] [place] [address]- 9180 November, [facility] [place] [facility] [address] [id number] [place] [address]- 7264 November, [facility] [place] [facility] [address] [id number] [place] [address]- 7115 Sep, [facility] [place] [facility] [address] [id number] [place] [address]- 8577 Sep, [facility] [place] [facility] [address] [id number] [place] [address]- 9385 Jun, [facility] [place] [facility] [address] [id number] [place] [address]- 3869 Jun, [facility] [place] [facility] [address] [id number] [place] [address]- 6795 Jun, [facility] [place] [facility] [address] [id number] [place] [address]- 3314 Jun, [facility] [place] [facility] [address] [id number] [place] [address]- 6772 Apr, [facility] [place] [facility] [address] [id number] [place] [address]- 4993 24 Mar, 2013 [facility] [place] [facility] [address] [id number] [place] [address]- 3336 06 Mar, 2013 [facility] [place] [facility] [address] [id number] [place] [address]- 4423 06 Mar, 2013 [facility] [place] [facility] [address] [id number] [place] [address]- 2309 Feb, [facility] [place] [facility] [address] [id number] [place] [address]- 5386 Jan, [facility] [place] [facility] [address] [id number] [place] [address]- 2656 November, [facility] [place] [facility] [address] [id number] [place] [address]- 3084 November, [facility] [place] [facility] [address] [id number] [place] [address]- 9761 Oct, [facility] [place] [facility] [address] [id number] [place] [address]- 0209 Aug, [facility] [place] [facility] [address] [id number] [place] [address]- 1281 Jun, [facility] [place] [facility] [address] [id number] [place] [address]- 6320 Jun, [facility] [place] [facility] [address] [id number] [place] [address]- 9237 May, [facility] [place] [facility] [address] [id number] [place] [address]- 5360 May, [facility] [place] [facility] [address] [id number] [place] [address]- 5403 May, [facility] [place] [facility] [address] [id number], [place] [address]- 4082 May, [facility] [place] [facility] [address] [id number], [place] [address]- 6044 May, [facility] [place] [facility] [address] [id number] [place] [address]- 0368 May, [facility] [place] [facility] [address] [id number] [place] [address]- 1135 May, [facility] [place] [facility] [address] [id number] [place] [address]- 2488 May, [facility] [place] [facility] [address] [id number] [place] [address] 2546 May, [facility] [address] [id number] [place] [address]- 2506 May, [facility] [address] [id number] [place] [address] 2546 Apr, [facility] [address] [id number] [place] [address]- 7676 Mar, [facility] [address] [id number] [place] [address] 2546 Mar, [facility] [address] [id number] [place] [address]- 9006 Feb, [facility] [address] [id number] [place] [address]- 6236 November, [facility] [address] [id number] [place] [address]- 4029 Sep, [facility] [address] [id number] [place] [address]- 2171 14 Sep, 2011 [facility] [address] [id number] [place] [address]- 1225 Sep, [facility] [address] [facility] [id number] [place] [address]- 4048 Sep, [facility] [address] [id number] [place] [address]- 7084 Jul, [facility] [address] [id number] [place] [address]- 3341 Jun, [facility] [place] [facility] [address] [id number] [place] [address]- 0687 Jun, [facility] [place] [facility] [address] [id number] [place] [address]- 2546 Jun, [facility] [address] [id number] [place] [address]- 4612 Apr, [facility] [address] [facility] [id number], [place] [address]- 5649 Jan, [facility] [address] [facility] [id number], [place] [address]- 0061 Dec, [facility] [address] [facility] [id number], [place] [address]- 2166 15 Aug, 2010 [facility] [address] [facility] [id number], [place] [address]- 6399 May, [facility] [address] [facility] [id number], [place] [address]- 0114 May, [facility] [address] [facility] [id number], [place] [address]- 9842 May, [facility] [address], [place] [address]- 9947 May, [facility] [address], [place] [address]- 4563 Apr, [facility] [address] [facility] [id number], [place] [address]- 8732 Aug, [facility] [address] [place] [id number], [place] [address]- 0598 Jul, [facility] [address] [place] [id number], [place] [address]- 2724 Dec, IMMUNIZATIONS No Known Immunizations SOCIAL HISTORY Never Assessed REASON FOR VISIT Eye Exam PLAN OF CARE VITAL SIGNS MEDICATIONS No Known Medications RESULTS No Results PROCEDURES No Known procedures INSTRUCTIONS MEDICATIONS ADMINISTERED No Known Medications MEDICAL (GENERAL) HISTORY Type Description Date Medical History hypertension Medical History hereditary spherocytosis Medical History hyperlipidemia Medical History insomnia Medical History testicular cancer Medical History restless leg syndrome Medical History Gout Medical History allergic rhinitis Medical History anxiety Surgical History orchiectomy with radiation 1983 Hospitalization History surgery
--- OUTSIDE RECORDS SUMMARY | 2017-11-05 08:10 | XMS REPORT ---
Author Author MELI MELARA [facility] Address [address] [place] [address] Care Team Providers Care Course Developer Name Role Phone MELI MELARA Unavailable PROBLEMS Type Condition ICD9-CM Code GYH25-TB Code Onset Dates Condition Status SNOMED Code Problem VANESSA (obstructive sleep apnea) G47.33 Active 30287890 Problem Other chronic pain G89.29 Active 03727726 Problem Hypertension, benign I10 Active 42356630 Problem Essential hypertension I10 Active 53048912 Problem Hypercholesterolemia E78.0 Active 32923232 ALLERGIES Substance Reaction Event Type Date Status Sinemet Unknown Drug Allergy Jul, Active Lipitor Unknown Drug Allergy Jul, Active SOCIAL HISTORY No smoking Hx information available PLAN OF CARE VITAL SIGNS Height 70 in 2016-07-21 Weight 203.6 lbs 2016-07-21 Temperature 97.8 degrees Fahrenheit 2016-07-21 Heart Rate 82 bpm 2016-07-21 Respiratory Rate 20 2016-07-21 BMI 29.21 kg/m2 2016-07-21 Blood pressure systolic 122 mmHg 2016-07-21 Blood pressure diastolic 76 mmHg 2016-07-21 MEDICATIONS Medication Instructions Dosage Frequency Start Date [...] Procedure Date Ordered Related Diagnosis Body Site [facility] VISIT ESTABLISHED PATIENT Jul 21, 2016 Office Visit, Est Pt., Level 3 Jul 21, 2016 IMMUNIZATIONS No Known Immunizations
--- OUTSIDE RECORDS SUMMARY | 2017-11-05 08:10 | XMS REPORT ---
Author Author MELI MELARA Organization [employer] Address Unknown Phone Unavailable Care Team Providers Care Baling Press Operator Name Role Phone MELI MELARA CP Unavailable Allergies No Known Allergies Problems Problem Type Condition Code Onset Dates Condition Status Problem Allergic rhinitis due to pollen 477.0 Active Assessment Hypertension, benign I10 Active Problem Hypertension 401.9 Active Problem Anxiety state, unspecified 300.00 Active Problem Hypertension, benign I10 Active Problem DTAP TEST V06.1 Active Problem Need for prophylactic vaccination and inoculation, Influenza V04.81 Active Problem Pure hypercholesterolemia 272.0 Active Problem Inguinal hernia without mention of obstruction or gangrene, unilateral or unspecified, (not specified as recurrent) 550.90 Active Medications No Known Medications Procedures Procedure Coding System Code Date VENIPUNCT, ROUTINE* CPT-4 30942 Apr 16, 2015 [facility] NOBLL Apr 16, 2015 Results Name Result Date Reference Range Unit Abnormality Flag ROUTINE VENIPUNCTURE Summary Purpose [employer] Submission
--- OUTSIDE RECORDS SUMMARY | 2017-11-05 08:10 | XMS REPORT ---
Author Author MELI MELARA Organization [employer] Address Unknown Phone Unavailable Care Team Providers Care Ball Truing Machine Operator Name Role Phone MELI MELARA CP Unavailable Allergies No Known Allergies Problems Problem Type Condition Code Onset Dates Condition Status Problem Hypertension, benign I10 Active Problem Hypercholesterolemia E78.0 Active Medications Medication Code System Code Instructions Start Date End Date Status Dosage Valium [facility] [address]-21 10 mg Aug 07, 2014 take 1 tablet by Oral route 2 times per day as needed Results No Known Results Summary Purpose [employer] Submission
--- OUTSIDE RECORDS SUMMARY | 2017-11-05 08:10 | XMS REPORT ---
Author Author MELI MELARA Organization [employer] Address Unknown Phone Unavailable Care Team Providers Care Calender Roll Press Operator Name Role Phone MELI MELARA [...] Instructions Start Date End Date Status Dosage Vitamin D [facility] [address]-51 1000 UNIT Orally Once a day 1 tablet Amlodipine Besylate [facility] 12724331535 2.5 MG Orally Once a day 1 tablet Fish Oil [facility] [address]-75 1 gram November 11, 2011 3 capsule by Oral route 1 time per day Valium [facility] [address]-40 10 MG Aug 07, 2014 take 1 tablet by Oral route 2 times per day Metoprolol Tartrate [facility] 87294648938 100 MG TAKE ONE TABLET BY MOUTH TWICE DAILY Zinc [facility] 09[address]-78484 100 MG Orally Once a day 1 tablet with a meal Procedures Procedure Coding System Code Date Office Visit, Est Pt., Level 3 CPT-4 79794 Apr 13, 2015 [facility] VISIT ESTABLISHED PATIENT CPT-4 G0467 Apr 13, 2015 Vital Signs Date/Time: Apr 13, 2015 Temperature 97.8 F Weight 195.9 lbs Height 70 in BMI 28.11 Index Blood Pressure Diastolic 86 mmHg Blood Pressure Systolic 140 mmHg Cardiac Monitoring Heart Rate 78 bpm Results No Known Results Summary Purpose [employer] Submission
--- OUTSIDE RECORDS SUMMARY | 2017-11-05 08:10 | XMS REPORT ---
Author Author MELI MELARA Organization [facility] Address [address] [place] [address] Care Team Providers Care Bag Mender Name Role Phone KELTONMELI Unavailable PROBLEMS Type Condition ICD9-CM Code XYR70-RC Code Onset Dates Condition Status SNOMED Code Problem VANESSA (obstructive sleep apnea) G47.33 Active 31222674 Problem Other chronic pain G89.29 Active 14067588 Problem Hypertension, benign I10 Active 73819171 Problem Essential hypertension I10 Active 93578087 Problem Hypercholesterolemia E78.0 Active 09956510 ALLERGIES Substance Reaction Event Type Date Status Sinemet Unknown Drug Allergy Jan, Active Lipitor Unknown Drug Allergy Jan, Active ENCOUNTERS Encounter Location Date Diagnosis [place] [address] [address] Sep, Nocturnal polyuria R35.1 and Dysuria R30.0 [place] [address] [address] Jun, Hypertension, benign I10 [place] [address] [address] Apr, Encounter for immunization Z23 [place] [address] [address] Jan, Hypertension, benign I10 and VANESSA (obstructive sleep apnea) G47.33 [place] [address] [address]- 0634 Jan, Hypertension, benign I10 and VANESSA (obstructive sleep apnea) G47.33 [place] [address] [address]- [address] Jan, [place] [address] [address] November, Hypertension, benign I10 [facility] [address] [place] [id number] [place] [address]- 3480 15 Aug, 2016 [facility] [address] [address] 17 Jul, 2016 Other chronic pain G89.29 and Pain in left shoulder M25.512 [facility] [address] [address]- [address]88 16 Jul, 2016 Other chronic pain G89.29 ; Pain in left shoulder M25.512 and Hypertension, benign I10 [place] [address] [address]- 6[address] Jun, [facility] [address] [place] [id number] [place] [address]60- 5147 Jun, Hypertension, benign I10 [place] [address] [address]- 3732 Apr, Essential hypertension I10 and Pure hypercholesterolemia E78.00 [facility] [address] [place] [id number] [place] [address] 32651- 1173 Feb, [place] [address] [place] [id number] [place] [address] 96197- 5229 Jan, [place] [address] [place] [id number] [place] [address] 31904- 5280 Jan, [facility] [address] [place] [id number] [place] [address] 73712- 3186 Jan, Benign non-nodular prostatic hyperplasia with lower urinary tract symptoms N40.1 and Hypertension, benign I10 [facility] [address] [place] [id number] [place] [address] 38006- 9560 14 Jan, 2016 Benign non-nodular prostatic hyperplasia with lower urinary tract symptoms N40.1 and Hypertension, benign I10 [place] [address] [place] [id number] [place] [address] 65273- 9653 Dec, [facility] [address] [place] [id number] [place] [address] -[address]239 November, Contact dermatitis, unspecified contact dermatitis type, unspecified trigger L25.9 [facility] [address] [place] [id number] [place] [address] 71555- 6625 Oct, [facility] [address] [address]- 8[address] Oct, Hypertension, benign I10 [facility] [address] 36[address]- 0[address] Sep, [facility] [address] [address] Aug, Left shoulder pain M25.512 [place] [address] 83751- 4693 Jul, Hypertension, benign I10 [place] [address] 68698- 6112 Jul, Hypertension 401.9 [place] [address] 43554- 0953 May, Hypertension, benign I10 ; Anxiety F41.9 and Hypercholesterolemia E78.0 [place] [address] [place] [id number] [place] [address] 40204- 1233 May, [place] [address] 60691- 4121 Apr, [facility] [address] [place] [id number] [place] [address] 83700- 5982 Apr, Hypertension, benign I10 [place] [address] 34270- 1749 Apr, Hypertension, benign I10 [facility] [address] 49042- 7532 Apr, Encounter for immunization Z23 [place] [address] [place] [address]- [address] Mar, Hypertension 401.9 [facility] [address] [id number] [address] Feb, HTN (hypertension) 401.9 [facility] [address] [id number] [address] Jan, HTN (hypertension) 401.9 [facility] [address] [place] [id number] [address] 4774 Dec, Hypertension 401.9 [facility] [address] [place] [id number] [address] 8207 November, Hypertension 401.9 [facility] [address] [id number] [address] 2624 November, [facility] [address] [address] November, [facility] [address] [place] [address] [id number] [address] 4724 November, [facility] [address] [place] [id number] [address] Oct, [facility] [address] [id number] [address] 1682 Oct, [facility] [address] [place] [id number] [address] 7[address] Sep, [facility] [address] [place] [address] [id number] [address]- 1242 Sep, [facility] [address] [place] [id number] [address]- 7167 Sep, [facility] [address] [place] [id number] [address]- 3394 Sep, [facility] [address] [id number] [address]- 6309 Sep, [facility] [address] [facility] [id number] [place] [address]- 7103 Sep, [facility] [place] [facility] [address] [id number] [place] [address]- 6810 Sep, [facility] [place] [facility] [address] [id number] [place] [address]- 7736 Sep, [facility] [place] [facility] [address] [id number] [place] [address]- 8026 Aug, 2014 [facility] [place] [facility] [address] [id number] [place] [address]- 3926 Aug, [facility] [place] [facility] [address] [id number] [place] [address]- 5326 Aug, 2014 [facility] [place] [facility] [address] [facility] [id number] [place] [address]- 6574 Aug, [facility] [place] [facility] [address] [id number] [place] [address]- 3467 Aug, [facility] [place] [facility] [address] [id number] [place] [address]- 3785 Aug, [facility] [place] [facility] [address] [facility] [id number] [place] [address]- 8040 Jul, [facility] [place] [facility] [address] [facility] [id number] [place] [address]- 6724 Jul, [facility] [place] [facility] [address] [id number] [place] [address] 2545 Jul, [facility] [place] [facility] [address] [id number] [place] [address]- 9275 Jul, [facility] [place] [facility] [address] [id number] [place] [address] 2547 Jul, [facility] [place] [facility] [address] [facility] [id number] [place] [address]- 6404 Jul, [facility] [place] [facility] [address] [id number] [place] [address]- 0097 Jul, [facility] [place] [facility] [address] [id number] [place] [address]- 8284 Jul, [facility] [place] [facility] [address] [id number] [place] [address]- 3716 Jul, [facility] [place] [facility] [address] [id number] [place] [address]- 2560 Jul, [facility] [place] [facility] [address] [id number] [place] [address]- 1978 Jun, [facility] [place] [facility] [address] [id number] [place] [address]- 7578 Jun, [facility] [place] [facility] [address] [id number] [place] [address]- 1416 May, [facility] [place] [facility] [address] [id number] [place] [address]- 9509 May, [facility] [place] [facility] [address] [id number], [place] [address]- 1052 Apr, [facility] [place] [facility] [address] [id number] [place] [address]- 7056 Apr, [facility] [place] [facility] [address] [id number], [place] [address]- 0436 Apr, [facility] [place] [facility] [address] [id number], [place] [address]- 9505 Apr, [facility] [place] [facility] [address] [id number], [place] [address]- 0979 Apr, [facility] [place] [facility] [address] [id number] [place] [address]- 8044 Apr, [facility] [place] [facility] [address] [id number], [place] [address]- 6135 Apr, [facility] [place] [facility] [address] [id number], [place] [address]- 8920 Apr, [facility] [place] [facility] [address] [id number] [place] [address]- 7399 Apr, [facility] [address] [id number] [place] [address]- 8493 Apr, [facility] [place] [facility] [address] [id number] [place] [address]- 3523 Mar, [facility] [place] [facility] [address] [id number] [place] [address]- 8316 Mar, [facility] [place] [facility] [address] [id number] [place] [address]- 6841 November, [facility] [place] [facility] [address] [id number] [place] [address] November, [facility] [place] [facility] [address] [id number] [place] [address]- 7303 Sep, [facility] [place] [facility] [address] [id number] [place] [address]- 6284 Sep, [facility] [place] [facility] [address] [id number] [place] [address]- 8691 Jun, [facility] [place] [facility] [address] [id number] [place] [address]- 5528 Jun, [facility] [place] [facility] [address] [facility] [id number] [place] [address]- 4907 Jun, [facility] [place] [facility] [address] [id number] [place] [address]- 6099 Jun, [facility] [place] [facility] [address] [id number] [place] [address]- 5710 Apr, [facility] [place] [facility] [address] [id number] [place] [address]- 1054 24 Mar, 2013 [facility] [place] [facility] [address] [id number] [place] [address]- 5300 06 Mar, 2013 [facility] [place] [facility] [address] [id number] [place] [address]- 3550 Mar, [facility] [place] [facility] [address] [id number] [place] [address]- 8701 Feb, [facility] [address] [id number] [place] [address]- 4478 Jan, [facility] [address] [id number] [place] [address]- 9868 November, [facility] [address] [id number] [place] [address]- 9099 November, [facility] [address] [id number] [place] [address]- 4936 Oct, [facility] [address] [id number] [place] [address]- 9647 Aug, [facility] [address] [id number] [place] [address]- 9363 Jun, [facility] [address] [id number] [place] [address]- 7405 Jun, [facility] [address] [id number] [place] [address]- 8963 May, [facility] [address] [id number] [place] [address]- 6082 May, [facility] [address] [id number] [place] [address]- 9669 May, [facility] [place] [facility] [address] [id number] [place] [address]- 8043 May, [facility] [place] [facility] [address] [id number] [place] [address]- 3192 May, [facility] [place] [facility] [address] [id number] [place] [address]- 4884 May, [facility] [place] [facility] [address] [id number] [place] [address]- 1446 May, [facility] [place] [facility] [address] [id number] [address]- 4306 May, [facility] [place] [facility] [address] [id number] [place] [address]- 6472 May, [facility] [place] [facility] [address] [id number] [place] [address]- 9466 May, [facility] [place] [facility] [address] [id number] [place] [address] 2546 Apr, [facility] [place] [facility] [address] [id number] [place] [address]- 6832 Mar, [facility] [place] [facility] [address] [id number] [place] [address]- 6656 Mar, [facility] [place] [facility] [address] [id number] [place] [address]- 7876 Feb, [facility] [place] [facility] [address] [id number] [place] [address]- 6926 November, [facility] [place] [facility] [address] [id number] [place] [address]- 9021 Sep, [facility] [place] [facility] [address] [id number] [place] [address]- 0571 Sep, [facility] [place] [facility] [address] [id number] [place] [address]- 4391 Sep, [facility] [place] [facility] [address] [id number] [place] [address]- 4718 Sep, [facility] [place] [facility] [address] [id number] [place] [address]- 6931 Jul, [facility] [place] [facility] [address] [id number] [place] [address]- 1712 Jun, [facility] [place] [facility] [address] [id number] [place] [address]- 4264 Jun, [facility] [place] [facility] [address] [id number] [place] [address]- 7907 Jun, [facility] [place] [facility] [address], [place] [address]- 6[address] Apr, [facility] [address], [place] [address]- 1816 Jan, [facility] [address], [place] [address]- 8970 Dec, [facility] [address], [place] [address]- 9784 Aug, [facility] [address], [place] [address]- 5666 May, [facility] [id number] [place] [address]- 5379 May, [facility] [address], [place] [address]- 0613 May, [facility] [address], [place] [address]- 0805 May, [facility] [address], [place] [address]- 7205 Apr, [facility] [address], [place] [address]- 7549 Aug, [facility] [address], [place] [address]- 8139 Jul, [facility] [address], [place] [address]- 9083 Dec, IMMUNIZATIONS No Known Immunizations SOCIAL HISTORY Never Assessed REASON FOR VISIT BP fu - Here for a check up and states he has no complaints or concerns. - Matthias KRAFT PLAN OF CARE VITAL SIGNS Height 70 in 2017-01-29 Weight 198.3 lbs 2017-01-29 Temperature 98.1 degrees Fahrenheit 2017-01-29 Heart Rate 76 bpm 2017-01-29 Respiratory Rate 20 2017-01-29 BMI 28.45 kg/m2 2017-01-29 Blood pressure systolic 142 mmHg 2017-01-29 Blood pressure diastolic 92 mmHg 2017-01-29 MEDICATIONS Medication Instructions Dosage Frequency Start Date End Date Duration Status Atenolol 100 MG Orally Once a day 1 tablet 24h 30 Active Fish Oil 1 gram 3 capsule by Oral route 1 time per day November, Active Valium 10 MG Orally Twice a day 1 tablet as needed 12h Aug, 28 days Active Amlodipine Besylate 10 MG Orally Once a day 1 tablet 24h 30 Active RESULTS No Results PROCEDURES Procedure Date Ordered Result Body Site [facility] VISIT ESTABLISHED PATIENT January 29, 2017 INSTRUCTIONS MEDICATIONS ADMINISTERED No Known Medications MEDICAL (GENERAL) HISTORY Type Description Date Medical History hypertension Medical History hereditary spherocytosis Medical History hyperlipidemia Medical History insomnia Medical History testicular cancer Medical History restless leg syndrome Medical History Gout Medical History allergic rhinitis Medical History anxiety Surgical History orchiectomy with radiation 1983 Hospitalization History surgery
--- OUTSIDE RECORDS SUMMARY | 2017-11-05 08:11 | XMS REPORT ---
Author Author MELI MELARA Organization [employer] Address Unknown Phone Unavailable Care Team Providers Care Hand Spring Repairer Name Role Phone MELI MELARA CP Unavailable [...] Date End Date Status Dosage Amlodipine Besylate [facility] [address]-86 10 MG Orally Once a day 1 tablet Results No Known Results Summary Purpose [employer] Submission
--- OUTSIDE RECORDS SUMMARY | 2017-11-05 08:11 | XMS REPORT ---
Author BERKLEY [facility] [employer] Address Unknown Phone Unavailable Care Team Providers Care Retail Business Analyst Name Role Phone BERKLEY MATTHEWS CP Unavailable Allergies No Known Allergies Problems Problem Type Condition Code Onset Dates Condition Status Problem Hypertension, benign I10 Active Problem Hypercholesterolemia E78.0 Active Medications No Known Medications Results No Known Results Summary Purpose [employer] Submission
--- OUTSIDE RECORDS SUMMARY | 2017-11-05 08:11 | XMS REPORT ---
Author Author MELI MELARA [facility] Address [address] [place] [address] Care Team Providers Care Front Office Secretary Name Role Phone MELI MELARA Unavailable PROBLEMS Type Condition ICD9-CM Code [id number] Code Onset Dates Condition Status SNOMED Code Problem VANESSA (obstructive sleep apnea) G47.33 Active 23491101 Problem Other chronic pain G89.29 Active 90476722 Problem Hypertension, benign I10 Active 85937091 Problem Essential hypertension I10 Active 30245188 Problem Hypercholesterolemia E78.0 Active 13725326 ALLERGIES Unknown Allergies SOCIAL HISTORY No smoking Hx information available PLAN OF CARE VITAL SIGNS MEDICATIONS Unknown Medications RESULTS No Results PROCEDURES No Known procedures IMMUNIZATIONS No Known Immunizations
--- OUTSIDE RECORDS SUMMARY | 2017-11-05 08:11 | XMS REPORT ---
Author Author MELI MELARA Organization [employer] Address Unknown Phone Unavailable Care Team Providers Care Elementary School Teacher'S Aide Name Role Phone MELI MELARA CP Unavailable Allergies No Known Allergies Problems Problem Type Condition Code Onset Dates Condition Status Problem Hypertension, benign I10 Active Problem Hypercholesterolemia E78.0 Active Medications No Known Medications Results No Known Results Summary Purpose [employer] Submission
--- OUTSIDE RECORDS SUMMARY | 2017-11-05 08:12 | XMS REPORT | Continuity of Care Document ---
Author Author [facility] Address Unknown Phone Unavailable Allergies Active Description Code Type Severity Reaction Onset Reported/Identified Relationship to Patient Clinical Status Yes Sinemet Drug Allergy N/A N/A 12/18/2010 Yes Sinemet Drug Allergy 12/18/2010 Yes Norvasc 5 mg tablet Drug Allergy N/A N/A 07/18/2011 Yes Norvasc 5 mg tablet Drug Allergy 07/18/2011 Yes Lipitor 10 mg Tablet Drug Allergy 11/11/2011 Yes No Known Drug Allergies [id number] Drug Allergy Unknown N/A 11/03/2017 Medications There is no data. 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 12/15/2008 NAMRATA LUNDY, TAZ Watson 307.40 NONORGANIC SLEEP DISORDERS 12/15/2008 307.40 NONORGANIC SLEEP DISORDERS 12/15/2008 307.40 NONORGANIC SLEEP DISORDERS 12/15/2008 307.40 NONORGANIC SLEEP DISORDERS 12/15/2008 BERKLEY MATTHEWS DO 307.40 NONORGANIC SLEEP DISORDERS 12/15/2008 MELI MELARA APRN 307.40 NONORGANIC SLEEP DISORDERS 12/15/2008 MELI MELARA APRN 307.40 NONORGANIC SLEEP DISORDERS 12/15/2008 KEYLA MONTANO APRN 307.40 NONORGANIC SLEEP DISORDERS 12/15/2008 MELI MELARA APRN 307.40 NONORGANIC SLEEP DISORDERS 12/15/2008 ADITYA ROTHMAN APRN 307.40 NONORGANIC SLEEP DISORDERS 12/15/2008 MELI MELARA APRN 307.40 NONORGANIC SLEEP DISORDERS 12/15/2008 CAMILLA GIMENEZ DDS 307.40 NONORGANIC SLEEP DISORDERS 12/15/2008 MELI MELARA APRN 307.40 NONORGANIC SLEEP DISORDERS 12/15/2008 BERKLEY MATTHEWS DO 307.40 NONORGANIC SLEEP DISORDERS 12/15/2008 MELI MELARA APRN 307.40 NONORGANIC SLEEP DISORDERS 12/15/2008 MATTHEWS DO, BERKLEY K 307.40 NONORGANIC SLEEP DISORDERS 12/15/2008 MELI MELARA APRN 307.40 NONORGANIC SLEEP DISORDERS 12/15/2008 MELI MELARA APRN 307.40 NONORGANIC SLEEP DISORDERS 12/29/2008 MELI MELARA APRN 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 12/29/2008 MELI MELARA APRN 401.1 HYPERTENSION, BENIGN ESSENTIAL 12/29/2008 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 12/29/2008 401.1 HYPERTENSION, BENIGN ESSENTIAL 12/29/2008 NAMRATA LUNDY, TAZ Watson 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 12/29/2008 NAMRATA LUNDY, TAZ Watson 401.1 HYPERTENSION, BENIGN ESSENTIAL 12/29/2008 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 12/29/2008 401.1 HYPERTENSION, BENIGN ESSENTIAL 12/29/2008 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 12/29/2008 401.1 HYPERTENSION, BENIGN ESSENTIAL 12/29/2008 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 12/29/2008 401.1 HYPERTENSION, BENIGN ESSENTIAL 12/29/2008 MATTHEWS DO, BERKLEY K 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 12/29/2008 MATTHEWS DO, BERKLEY K 401.1 HYPERTENSION, BENIGN ESSENTIAL 12/29/2008 MELI MELARA APRN 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 12/29/2008 MELI MELARA APRN 401.1 HYPERTENSION, BENIGN ESSENTIAL 12/29/2008 MELI MELARA APRN 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 12/29/2008 MELI MELARA APRN 401.1 HYPERTENSION, BENIGN ESSENTIAL 12/29/2008 KEYLA MONTANO APRN R 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 12/29/2008 KEYLA MONTANO APRN R 401.1 HYPERTENSION, BENIGN ESSENTIAL 12/29/2008 MELI MELARA APRN 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 12/29/2008 MELI MELARA APRN 401.1 HYPERTENSION, BENIGN ESSENTIAL 12/29/2008 LORNA DELGADO ADITYA R 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 12/29/2008 LORNA DELGADO ADITYA R 401.1 HYPERTENSION, BENIGN ESSENTIAL 12/29/2008 MELI MELARA APRN 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 12/29/2008 MELI MELARA APRN 401.1 HYPERTENSION, BENIGN ESSENTIAL 12/29/2008 WHITE DDS, CAMILLA J 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 12/29/2008 WHITE DDS, CAMILLA J 401.1 HYPERTENSION, BENIGN ESSENTIAL 12/29/2008 MELI MELARA APRN 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 12/29/2008 MELI MELARA APRN 401.1 HYPERTENSION, BENIGN ESSENTIAL 12/29/2008 MATTHEWS DO, BERKLEY K 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 12/29/2008 MATTHEWS DO, BERKLEY K 401.1 HYPERTENSION, BENIGN ESSENTIAL 12/29/2008 MELI MELARA APRN 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 12/29/2008 MELI MELARA APRN 401.1 HYPERTENSION, BENIGN ESSENTIAL 12/29/2008 MATTHEWS DO, BERKLEY K 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 12/29/2008 MATTHEWS DO, BERKLEY K 401.1 HYPERTENSION, BENIGN ESSENTIAL 12/29/2008 MELI MELARA APRN 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 12/29/2008 MELI MELARA APRN 401.1 HYPERTENSION, BENIGN ESSENTIAL 12/29/2008 MELI MELARA APRN 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 12/29/2008 MELI MELARA APRN 401.1 HYPERTENSION, BENIGN ESSENTIAL 07/24/2009 MELI MELARA APRN 461.9 SINUSITIS ACUTE 07/24/2009 461.9 SINUSITIS ACUTE 07/24/2009 NAMRATA LUNDY, TAZ Watson 461.9 SINUSITIS ACUTE 07/24/2009 461.9 SINUSITIS ACUTE 07/24/2009 461.9 SINUSITIS ACUTE 07/24/2009 461.9 SINUSITIS ACUTE 07/24/2009 MATTHEWS DO, BERKLEY K 461.9 SINUSITIS ACUTE 07/24/2009 MELI MELARA APRN 461.9 SINUSITIS ACUTE 07/24/2009 MELI MELARA APRN 461.9 SINUSITIS ACUTE 07/24/2009 KEYLA MONTANO APRN 461.9 SINUSITIS ACUTE 07/24/2009 MELI MELARA APRN 461.9 SINUSITIS ACUTE 07/24/2009 ADITYA ROTHMAN APRN R 461.9 SINUSITIS ACUTE 07/24/2009 MELI MELARA APRN 461.9 SINUSITIS ACUTE 07/24/2009 PERNELL BUSBYS, CAMILLA Montalvo 461.9 SINUSITIS ACUTE 07/24/2009 MELI MELARA APRN 461.9 SINUSITIS ACUTE 07/24/2009 MATTHEWS DO, BERKLEY K 461.9 SINUSITIS ACUTE 07/24/2009 MELI MELARA APRN 461.9 SINUSITIS ACUTE 07/24/2009 MATTHEWS DO, BERKLEY K 461.9 SINUSITIS ACUTE 07/24/2009 MELI MELARA APRN 461.9 SINUSITIS ACUTE 07/24/2009 MELI MELARA APRN 461.9 SINUSITIS ACUTE 08/09/2009 MELI MELARA APRN 401.9 Combined Systolic And Diastolic Elevation 08/09/2009 MELI MELARA APRN 600.21 BPH LOCAL W/ URINARY OBSTRUCT W/ OTHER LOW URINARY TRACT SX 08/09/2009 MELI MELARA APRN 788.41 urinary frequency increased 08/09/2009 401.9 Combined Systolic And Diastolic Elevation 08/09/2009 600.21 BPH LOCAL W/ URINARY OBSTRUCT W/ OTHER LOW URINARY TRACT SX 08/09/2009 788.41 urinary frequency increased 08/09/2009 NAMRATA LUNDY, TAZ Watson 401.9 Combined Systolic And Diastolic Elevation 08/09/2009 NAMRATA LUNDY, TAZ Watson 600.21 BPH LOCAL W/ URINARY OBSTRUCT W/ OTHER LOW URINARY TRACT SX 08/09/2009 NAMRATA LUNDY, TAZ Watson 788.41 urinary frequency increased 08/09/2009 401.9 COMBINED SYSTOLIC AND DIASTOLIC ELEVATION 08/09/2009 600.21 BPH LOCAL W/ URINARY OBSTRUCT W/ OTHER LOW URINARY TRACT SX 08/09/2009 788.41 URINARY FREQUENCY INCREASED 08/09/2009 401.9 COMBINED SYSTOLIC AND DIASTOLIC ELEVATION 08/09/2009 600.21 BPH LOCAL W/ URINARY OBSTRUCT W/ OTHER LOW URINARY TRACT SX 08/09/2009 788.41 URINARY FREQUENCY INCREASED 08/09/2009 401.9 COMBINED SYSTOLIC AND DIASTOLIC ELEVATION 08/09/2009 600.21 BPH LOCAL W/ URINARY OBSTRUCT W/ OTHER LOW URINARY TRACT SX 08/09/2009 788.41 URINARY FREQUENCY INCREASED 08/09/2009 MATTHEWS DO, BERKLEY K 401.9 COMBINED SYSTOLIC AND DIASTOLIC ELEVATION 08/09/2009 CASSIE DO, BERKLEY K 600.21 BPH LOCAL W/ URINARY OBSTRUCT W/ OTHER LOW URINARY TRACT SX 08/09/2009 KRISTI MATTHEWS DOA K 788.41 URINARY FREQUENCY INCREASED 08/09/2009 MELI MELARA APRN T 401.9 COMBINED SYSTOLIC AND DIASTOLIC ELEVATION 08/09/2009 MELI MELARA APRN T 600.21 BPH LOCAL W/ URINARY OBSTRUCT W/ OTHER LOW URINARY TRACT SX 08/09/2009 MELI MELARA APRN 788.41 URINARY FREQUENCY INCREASED 08/09/2009 MELI MELARA APRN 401.9 COMBINED SYSTOLIC AND DIASTOLIC ELEVATION 08/09/2009 MELI MELARA APRN T 600.21 BPH LOCAL W/ URINARY OBSTRUCT W/ OTHER LOW URINARY TRACT SX 08/09/2009 MELI MELARA APRN 788.41 URINARY FREQUENCY INCREASED 08/09/2009 KEYLA MONTANO APRN R 401.9 COMBINED SYSTOLIC AND DIASTOLIC ELEVATION 08/09/2009 KEYLA MONTANO APRN R 600.21 BPH LOCAL W/ URINARY OBSTRUCT W/ OTHER LOW URINARY TRACT SX 08/09/2009 KEYLA MONTANO APRN R 788.41 URINARY FREQUENCY INCREASED 08/09/2009 MELI MELARA APRN T 401.9 COMBINED SYSTOLIC AND DIASTOLIC ELEVATION 08/09/2009 MELI MELARA APRN T 600.21 BPH LOCAL W/ URINARY OBSTRUCT W/ OTHER LOW URINARY TRACT SX 08/09/2009 MELI MELARA APRN 788.41 URINARY FREQUENCY INCREASED 08/09/2009 ADITYA ROTHMAN APRN R 401.9 COMBINED SYSTOLIC AND DIASTOLIC ELEVATION 08/09/2009 ADITYA ROTHMAN APRN R 600.21 BPH LOCAL W/ URINARY OBSTRUCT W/ OTHER LOW URINARY TRACT SX 08/09/2009 ADITYA ROTHMAN APRN R 788.41 URINARY FREQUENCY INCREASED 08/09/2009 MELI MELARA APRN T 401.9 COMBINED SYSTOLIC AND DIASTOLIC ELEVATION 08/09/2009 MELI MELARA APRN 600.21 BPH LOCAL W/ URINARY OBSTRUCT W/ OTHER LOW URINARY TRACT SX 08/09/2009 MELI MELARA APRN 788.41 URINARY FREQUENCY INCREASED 08/09/2009 WHITE DDS, CAMILLA J 401.9 COMBINED SYSTOLIC AND DIASTOLIC ELEVATION 08/09/2009 WHITE DDS, CAMILLA J 600.21 BPH LOCAL W/ URINARY OBSTRUCT W/ OTHER LOW URINARY TRACT SX 08/09/2009 WHITE DDS, CAMILLA J 788.41 URINARY FREQUENCY INCREASED 08/09/2009 MELI MELARA APRN 401.9 COMBINED SYSTOLIC AND DIASTOLIC ELEVATION 08/09/2009 MELI MELARA APRN 600.21 BPH LOCAL W/ URINARY OBSTRUCT W/ OTHER LOW URINARY TRACT SX 08/09/2009 MELI MELARA APRN 788.41 URINARY FREQUENCY INCREASED 08/09/2009 MATTHEWS DO, BERKLEY K 401.9 COMBINED SYSTOLIC AND DIASTOLIC ELEVATION 08/09/2009 MATTHEWS DO, BERKLEY K 600.21 BPH LOCAL W/ URINARY OBSTRUCT W/ OTHER LOW URINARY TRACT SX 08/09/2009 MATTHEWS DO, BERKLEY K 788.41 URINARY FREQUENCY INCREASED 08/09/2009 MELI MELARA APRN 401.9 COMBINED SYSTOLIC AND DIASTOLIC ELEVATION 08/09/2009 MELI MELARA APRN 600.21 BPH LOCAL W/ URINARY OBSTRUCT W/ OTHER LOW URINARY TRACT SX 08/09/2009 MELI MELARA APRN 788.41 URINARY FREQUENCY INCREASED 08/09/2009 MATTHEWS DO, BERKLEY K 401.9 COMBINED SYSTOLIC AND DIASTOLIC ELEVATION 08/09/2009 MATTHEWS DO, BERKLEY K 600.21 BPH LOCAL W/ URINARY OBSTRUCT W/ OTHER LOW URINARY TRACT SX 08/09/2009 MATTHEWS DO, BERKLEY K 788.41 URINARY FREQUENCY INCREASED 08/09/2009 MELI MELARA APRN 401.9 COMBINED SYSTOLIC AND DIASTOLIC ELEVATION 08/09/2009 MELI MELARA APRN 600.21 BPH LOCAL W/ URINARY OBSTRUCT W/ OTHER LOW URINARY TRACT SX 08/09/2009 MELI MELARA APRN 788.41 URINARY FREQUENCY INCREASED 08/09/2009 MELI MELARA APRN 401.9 COMBINED SYSTOLIC AND DIASTOLIC ELEVATION 08/09/2009 MELI MELARA APRN 600.21 BPH LOCAL W/ URINARY OBSTRUCT W/ OTHER LOW URINARY TRACT SX 08/09/2009 MELI MELARA APRN 788.41 URINARY FREQUENCY INCREASED 03/02/2010 MELI MELARA APRN 692.6 CONTACT DERMATITIS AND OTHER ECZEMA, DUE TO PLANTS [EXCEPT FOOD] 03/02/2010 692.6 CONTACT DERMATITIS AND OTHER ECZEMA, DUE TO PLANTS [EXCEPT FOOD] 03/02/2010 NAMRATA LUNDY, TAZ Watson 692.6 CONTACT DERMATITIS AND OTHER ECZEMA, DUE TO PLANTS [EXCEPT FOOD] 03/02/2010 692.6 CONTACT DERMATITIS AND OTHER ECZEMA, DUE TO PLANTS [EXCEPT FOOD] 03/02/2010 692.6 CONTACT DERMATITIS AND OTHER ECZEMA, DUE TO PLANTS [EXCEPT FOOD] 03/02/2010 692.6 CONTACT DERMATITIS AND OTHER ECZEMA, DUE TO PLANTS [EXCEPT FOOD] 03/02/2010 MATTHEWS DO, BERKLEY K 692.6 CONTACT DERMATITIS AND OTHER ECZEMA, DUE TO PLANTS [EXCEPT FOOD] 03/02/2010 MELI MELARA APRN 692.6 CONTACT DERMATITIS AND OTHER ECZEMA, DUE TO PLANTS [EXCEPT FOOD] 03/02/2010 MELI MELARA APRN 692.6 CONTACT DERMATITIS AND OTHER ECZEMA, DUE TO PLANTS [EXCEPT FOOD] 03/02/2010 KEYLA MONTANO APRN R 692.6 CONTACT DERMATITIS AND OTHER ECZEMA, DUE TO PLANTS [EXCEPT FOOD] 03/02/2010 MELI MELARA APRN 692.6 CONTACT DERMATITIS AND OTHER ECZEMA, DUE TO PLANTS [EXCEPT FOOD] 03/02/2010 ADITYA ROTHMAN APRN R 692.6 CONTACT DERMATITIS AND OTHER ECZEMA, DUE TO PLANTS [EXCEPT FOOD] 03/02/2010 MELI MELARA APRN 692.6 CONTACT DERMATITIS AND OTHER ECZEMA, DUE TO PLANTS [EXCEPT FOOD] 03/02/2010 WHITE DDS, CAMILLA J 692.6 CONTACT DERMATITIS AND OTHER ECZEMA, DUE TO PLANTS [EXCEPT FOOD] 03/02/2010 MELI MELARA APRN 692.6 CONTACT DERMATITIS AND OTHER ECZEMA, DUE TO PLANTS [EXCEPT FOOD] 03/02/2010 MATTHEWS DO, BERKLEY K 692.6 CONTACT DERMATITIS AND OTHER ECZEMA, DUE TO PLANTS [EXCEPT FOOD] 03/02/2010 MELI MELARA APRN 692.6 CONTACT DERMATITIS AND OTHER ECZEMA, DUE TO PLANTS [EXCEPT FOOD] 03/02/2010 MATTHEWS DO, BERKLEY K 692.6 CONTACT DERMATITIS AND OTHER ECZEMA, DUE TO PLANTS [EXCEPT FOOD] 03/02/2010 MELI MELARA APRN 692.6 CONTACT DERMATITIS AND OTHER ECZEMA, DUE TO PLANTS [EXCEPT FOOD] 03/02/2010 MELI MELARA APRN 692.6 CONTACT DERMATITIS AND OTHER ECZEMA, DUE TO PLANTS [EXCEPT FOOD] 03/04/2010 MELI MELARA APRN NODX NO DIAGNOSIS 03/04/2010 NODX NO DIAGNOSIS 03/04/2010 NAMRATA LUNDY, TAZ Watson NODX NO DIAGNOSIS 03/04/2010 NODX NO DIAGNOSIS 03/04/2010 NODX NO DIAGNOSIS 03/04/2010 NODX NO DIAGNOSIS 03/04/2010 CASSIE GREER BERKLEY K NODX NO DIAGNOSIS 03/04/2010 KELTON GAS SUBSTATION OPERATORMELI NODX NO DIAGNOSIS 03/04/2010 KELTON GAS SUBSTATION OPERATOR, MELI Rashid NODX NO DIAGNOSIS 03/04/2010 CHARMAINE DELGADO, KEYLA R NODX NO DIAGNOSIS 03/04/2010 KELTON DELGADO MELI T NODX NO DIAGNOSIS 03/04/2010 LORNA DELGADO ADITYA R NODX NO DIAGNOSIS 03/04/2010 KELTON DELGADO, MELI Rashid NODX NO DIAGNOSIS 03/04/2010 WHITE DDS, CAMILLA J NODX NO DIAGNOSIS 03/04/2010 KELTON DELGADO, MELI Rashid NODX NO DIAGNOSIS 03/04/2010 MATTHEWS , BERKLEY K NODX NO DIAGNOSIS 03/04/2010 KELTON DELGADO MELI Rashid NODX NO DIAGNOSIS 03/04/2010 MATTHEWS BERKLEY K NODX NO DIAGNOSIS 03/04/2010 KELTON DELGADOMELI NODX NO DIAGNOSIS 03/04/2010 KELTON DELGADOMELI NODX NO DIAGNOSIS 04/12/2010 MELI MELARA APRN 780.4 DIZZINESS AND VERTIGO 04/12/2010 780.4 DIZZINESS AND VERTIGO 04/12/2010 NAMRATA LUNDY, TAZ Watson 780.4 DIZZINESS AND VERTIGO 04/12/2010 780.4 DIZZINESS AND VERTIGO 04/12/2010 780.4 DIZZINESS AND VERTIGO 04/12/2010 780.4 DIZZINESS AND VERTIGO 04/12/2010 MATTHEWS DO BERKLEY K 780.4 DIZZINESS AND VERTIGO 04/12/2010 MELI MELARA APRN 780.4 DIZZINESS AND VERTIGO 04/12/2010 MELI MELARA APRN 780.4 DIZZINESS AND VERTIGO 04/12/2010 CHARMAINE DELGADO KEYLA R 780.4 DIZZINESS AND VERTIGO 04/12/2010 MELI MELARA APRN 780.4 DIZZINESS AND VERTIGO 04/12/2010 LORNA DELGADO ADITYA R 780.4 DIZZINESS AND VERTIGO 04/12/2010 MELI MELARA APRN 780.4 DIZZINESS AND VERTIGO 04/12/2010 WHITE DDS, CAMILLA J 780.4 DIZZINESS AND VERTIGO 04/12/2010 MELI MELARA APRN 780.4 DIZZINESS AND VERTIGO 04/12/2010 MATTHEWS DO, BERKLEY K 780.4 DIZZINESS AND VERTIGO 04/12/2010 MELI MELARA APRN 780.4 DIZZINESS AND VERTIGO 04/12/2010 MATTHEWS DO, BERKLEY K 780.4 DIZZINESS AND VERTIGO 04/12/2010 MELI MELARA APRN 780.4 DIZZINESS AND VERTIGO 04/12/2010 MELI MELARA APRN 780.4 DIZZINESS AND VERTIGO 05/14/2010 MELI MELARA APRN 780.52 INSOMNIA UNSPECIFIED 05/14/2010 780.52 INSOMNIA UNSPECIFIED 05/14/2010 TAZ CURRY MD 780.52 INSOMNIA UNSPECIFIED 05/14/2010 780.52 INSOMNIA UNSPECIFIED 05/14/2010 780.52 INSOMNIA UNSPECIFIED 05/14/2010 780.52 INSOMNIA UNSPECIFIED 05/14/2010 CASSIE GREER BERKLEY K 780.52 INSOMNIA UNSPECIFIED 05/14/2010 MELI MELARA APRN 780.52 INSOMNIA UNSPECIFIED 05/14/2010 MELI MELARA APRN 780.52 INSOMNIA UNSPECIFIED 05/14/2010 CHARMAINE DELGADO KEYLA R 780.52 INSOMNIA UNSPECIFIED 05/14/2010 MELI MELARA APRN 780.52 INSOMNIA UNSPECIFIED 05/14/2010 LORNA DELGADO ADITYA R 780.52 INSOMNIA UNSPECIFIED 05/14/2010 MELI MELARA APRN 780.52 INSOMNIA UNSPECIFIED 05/14/2010 CAMILLA GIMENEZ DDS 780.52 INSOMNIA UNSPECIFIED 05/14/2010 MELI MELARA APRN 780.52 INSOMNIA UNSPECIFIED 05/14/2010 CASSIE GREER BERKLEY K 780.52 INSOMNIA UNSPECIFIED 05/14/2010 MELI MELARA APRN 780.52 INSOMNIA UNSPECIFIED 05/14/2010 MATTHEWS DO BERKLEY K 780.52 INSOMNIA UNSPECIFIED 05/14/2010 MELI MELARA APRN 780.52 INSOMNIA UNSPECIFIED 05/14/2010 MELI MELARA APRN 780.52 INSOMNIA UNSPECIFIED 05/29/2010 MELI MELARA APRN 788.43 urinary frequency more than twice at night (nocturia) 05/29/2010 788.43 urinary frequency more than twice at night (nocturia) 05/29/2010 TAZ CURRY MD 788.43 urinary frequency more than twice at night (nocturia) 05/29/2010 788.43 URINARY FREQUENCY MORE THAN TWICE AT NIGHT (NOCTURIA) 05/29/2010 788.43 URINARY FREQUENCY MORE THAN TWICE AT NIGHT (NOCTURIA) 05/29/2010 788.43 URINARY FREQUENCY MORE THAN TWICE AT NIGHT (NOCTURIA) 05/29/2010 BERKLEY MATTHEWS DO 788.43 URINARY FREQUENCY MORE THAN TWICE AT NIGHT (NOCTURIA) 05/29/2010 MELI MELARA APRN 788.43 URINARY FREQUENCY MORE THAN TWICE AT NIGHT (NOCTURIA) 05/29/2010 MELI MELARA APRN 788.43 URINARY FREQUENCY MORE THAN TWICE AT NIGHT (NOCTURIA) 05/29/2010 KEYLA MONTANO APRN R 788.43 URINARY FREQUENCY MORE THAN TWICE AT NIGHT (NOCTURIA) 05/29/2010 MELI MELARA APRN 788.43 URINARY FREQUENCY MORE THAN TWICE AT NIGHT (NOCTURIA) 05/29/2010 ADITYA ROTHMAN APRN R 788.43 URINARY FREQUENCY MORE THAN TWICE AT NIGHT (NOCTURIA) 05/29/2010 MELI MELARA APRN 788.43 URINARY FREQUENCY MORE THAN TWICE AT NIGHT (NOCTURIA) 05/29/2010 CAMILLA GIMENEZ DDS 788.43 URINARY FREQUENCY MORE THAN TWICE AT NIGHT (NOCTURIA) 05/29/2010 MELI MELARA APRN 788.43 URINARY FREQUENCY MORE THAN TWICE AT NIGHT (NOCTURIA) 05/29/2010 BERKLEY MATTHEWS DO 788.43 URINARY FREQUENCY MORE THAN TWICE AT NIGHT (NOCTURIA) 05/29/2010 MELI MELARA APRN 788.43 URINARY FREQUENCY MORE THAN TWICE AT NIGHT (NOCTURIA) 05/29/2010 BERKLEY MATTHEWS DO 788.43 URINARY FREQUENCY MORE THAN TWICE AT NIGHT (NOCTURIA) 05/29/2010 MELI MELARA APRN 788.43 URINARY FREQUENCY MORE THAN TWICE AT NIGHT (NOCTURIA) 05/29/2010 MELI MELARA APRN 788.43 URINARY FREQUENCY MORE THAN TWICE AT NIGHT (NOCTURIA) 08/20/2010 MELI MELARA APRN 272.4 HYPERLIPIDEMIA 08/20/2010 272.4 HYPERLIPIDEMIA 08/20/2010 NAMRATA LUNDY, TAZ Watson 272.4 HYPERLIPIDEMIA 08/20/2010 272.4 HYPERLIPIDEMIA 08/20/2010 272.4 HYPERLIPIDEMIA 08/20/2010 272.4 HYPERLIPIDEMIA 08/20/2010 BERKLEY MATTHEWS DO 272.4 HYPERLIPIDEMIA 08/20/2010 KELTON GAS SUBSTATION OPERATOR, MELI T 272.4 HYPERLIPIDEMIA 08/20/2010 MELI MELARA APRN T 272.4 HYPERLIPIDEMIA 08/20/2010 SUYAPA MONTANO APRNRICIA R 272.4 HYPERLIPIDEMIA 08/20/2010 MELI MELARA APRN T 272.4 HYPERLIPIDEMIA 08/20/2010 LORNA DELGADO, ADITYA R 272.4 HYPERLIPIDEMIA 08/20/2010 MELI MELARA APRN T 272.4 HYPERLIPIDEMIA 08/20/2010 WHITE DDS, CAMILLA J 272.4 HYPERLIPIDEMIA 08/20/2010 MELI MELARA APRN T 272.4 HYPERLIPIDEMIA 08/20/2010 MATTHEWS DO, BERKLEY K 272.4 HYPERLIPIDEMIA 08/20/2010 MELI MELARA APRN T 272.4 HYPERLIPIDEMIA 08/20/2010 MATTHEWS DO, BERKLEY K 272.4 HYPERLIPIDEMIA 08/20/2010 MELI MELARA APRN T 272.4 HYPERLIPIDEMIA 08/20/2010 MELI MELARA APRN T 272.4 HYPERLIPIDEMIA 11/22/2010 MELI MELARA APRN T 333.94 RESTLESS LEGS SYNDROME (RLS) 11/22/2010 333.94 RESTLESS LEGS SYNDROME (RLS) 11/22/2010 NAMRATA LUNDY, TAZ Watson 333.94 RESTLESS LEGS SYNDROME (RLS) 11/22/2010 333.94 RESTLESS LEGS SYNDROME (RLS) 11/22/2010 333.94 RESTLESS LEGS SYNDROME (RLS) 11/22/2010 333.94 RESTLESS LEGS SYNDROME (RLS) 11/22/2010 MATTHEWS DO, BERKLEY K 333.94 RESTLESS LEGS SYNDROME (RLS) 11/22/2010 MELI MELARA APRN T 333.94 RESTLESS LEGS SYNDROME (RLS) 11/22/2010 MELI MELARA APRN 333.94 RESTLESS LEGS SYNDROME (RLS) 11/22/2010 KEYLA MONTANO APRN R 333.94 RESTLESS LEGS SYNDROME (RLS) 11/22/2010 MELI MELARA APRN T 333.94 RESTLESS LEGS SYNDROME (RLS) 11/22/2010 YODIT ROTHMAN APRNINA R 333.94 RESTLESS LEGS SYNDROME (RLS) 11/22/2010 MELI MELARA APRN T 333.94 RESTLESS LEGS SYNDROME (RLS) 11/22/2010 WHITE DDS, CAMILLA J 333.94 RESTLESS LEGS SYNDROME (RLS) 11/22/2010 MELI MELARA APRN 333.94 RESTLESS LEGS SYNDROME (RLS) 11/22/2010 MATTHEWS DO BERKLEY K 333.94 RESTLESS LEGS SYNDROME (RLS) 11/22/2010 MELI MELARA APRN 333.94 RESTLESS LEGS SYNDROME (RLS) 11/22/2010 BERKLEY MATTHEWS DO 333.94 RESTLESS LEGS SYNDROME (RLS) 11/22/2010 MELI MELARA APRN 333.94 RESTLESS LEGS SYNDROME (RLS) 11/22/2010 MELI MELARA APRN 333.94 RESTLESS LEGS SYNDROME (RLS) 01/02/2011 MELI MELARA APRN 716.67 UNSPECIFIED MONOARTHRITIS INVOLVING ANKLE AND FOOT 01/02/2011 716.67 UNSPECIFIED MONOARTHRITIS INVOLVING ANKLE AND FOOT 01/02/2011 NAMRATA LUNDY, TAZ Watson 716.67 UNSPECIFIED MONOARTHRITIS INVOLVING ANKLE AND FOOT 01/02/2011 716.67 UNSPECIFIED MONOARTHRITIS INVOLVING ANKLE AND FOOT 01/02/2011 716.67 UNSPECIFIED MONOARTHRITIS INVOLVING ANKLE AND FOOT 01/02/2011 716.67 UNSPECIFIED MONOARTHRITIS INVOLVING ANKLE AND FOOT 01/02/2011 BERKLEY MATTHEWS DO 716.67 UNSPECIFIED MONOARTHRITIS INVOLVING ANKLE AND FOOT 01/02/2011 MELI MELARA APRN 716.67 UNSPECIFIED MONOARTHRITIS INVOLVING ANKLE AND FOOT 01/02/2011 MELI MELARA APRN 716.67 UNSPECIFIED MONOARTHRITIS INVOLVING ANKLE AND FOOT 01/02/2011 KEYLA MONTANO APRN 716.67 UNSPECIFIED MONOARTHRITIS INVOLVING ANKLE AND FOOT 01/02/2011 MELI MELARA APRN 716.67 UNSPECIFIED MONOARTHRITIS INVOLVING ANKLE AND FOOT 01/02/2011 ADITYA ROTHMAN APRN R 716.67 UNSPECIFIED MONOARTHRITIS INVOLVING ANKLE AND FOOT 01/02/2011 MELI MELARA APRN 716.67 UNSPECIFIED MONOARTHRITIS INVOLVING ANKLE AND FOOT 01/02/2011 CAMILLA GIMENEZ DDS 716.67 UNSPECIFIED MONOARTHRITIS INVOLVING ANKLE AND FOOT 01/02/2011 MELI MELARA APRN 716.67 UNSPECIFIED MONOARTHRITIS INVOLVING ANKLE AND FOOT 01/02/2011 BERKLEY MATTHEWS DO 716.67 UNSPECIFIED MONOARTHRITIS INVOLVING ANKLE AND FOOT 01/02/2011 MELI MELARA APRN 716.67 UNSPECIFIED MONOARTHRITIS INVOLVING ANKLE AND FOOT 01/02/2011 BERKLEY MATTHEWS DO 716.67 UNSPECIFIED MONOARTHRITIS INVOLVING ANKLE AND FOOT 01/02/2011 MELI MELARA APRN 716.67 UNSPECIFIED MONOARTHRITIS INVOLVING ANKLE AND FOOT 01/02/2011 MELI MELARA APRN 716.67 UNSPECIFIED MONOARTHRITIS INVOLVING ANKLE AND FOOT 01/15/2011 MELI MELARA APRN 110.1 DERMATOPHYTOSIS OF NAIL 01/15/2011 MELI MELARA APRN 274.9 GOUT UNSPECIFIED 01/15/2011 MELI MELARA APRN 734 FLAT FOOT 01/15/2011 110.1 DERMATOPHYTOSIS OF NAIL 01/15/2011 274.9 GOUT UNSPECIFIED 01/15/2011 734 FLAT FOOT 01/15/2011 TAZ CURRY MD 110.1 DERMATOPHYTOSIS OF NAIL 01/15/2011 TAZ CURRY MD 274.9 GOUT UNSPECIFIED 01/15/2011 TAZ CURRY MD 734 FLAT FOOT 01/15/2011 110.1 DERMATOPHYTOSIS OF NAIL 01/15/2011 274.9 GOUT UNSPECIFIED 01/15/2011 734 FLAT FOOT 01/15/2011 110.1 DERMATOPHYTOSIS OF NAIL 01/15/2011 274.9 GOUT UNSPECIFIED 01/15/2011 734 FLAT FOOT 01/15/2011 110.1 DERMATOPHYTOSIS OF NAIL 01/15/2011 274.9 GOUT UNSPECIFIED 01/15/2011 734 FLAT FOOT 01/15/2011 MATTHEWS DO, BERKLEY K 110.1 DERMATOPHYTOSIS OF NAIL 01/15/2011 MATTHEWS DO, BERKLEY K 274.9 GOUT UNSPECIFIED 01/15/2011 MATTHEWS DO, BERKLEY K 734 FLAT FOOT 01/15/2011 MELI MELARA APRN 110.1 DERMATOPHYTOSIS OF NAIL 01/15/2011 MELI MELARA APRN 274.9 GOUT UNSPECIFIED 01/15/2011 MELI MELARA APRN 734 FLAT FOOT 01/15/2011 MELI MELARA APRN 110.1 DERMATOPHYTOSIS OF NAIL 01/15/2011 MELI MELARA APRN 274.9 GOUT UNSPECIFIED 01/15/2011 MELI MELARA APRN 734 FLAT FOOT 01/15/2011 KEYLA MONTANO APRN R 110.1 DERMATOPHYTOSIS OF NAIL 01/15/2011 KEYLA MONTANO APRN R 274.9 GOUT UNSPECIFIED 01/15/2011 MONTANO GAS SUBSTATION OPERATOR, KEYLA R 734 FLAT FOOT 01/15/2011 MELI MELARA APRN 110.1 DERMATOPHYTOSIS OF NAIL 01/15/2011 MELI MELARA APRN 274.9 GOUT UNSPECIFIED 01/15/2011 MELI MELARA APRN 734 FLAT FOOT 01/15/2011 LORNA DELGADO ADITYA R 110.1 DERMATOPHYTOSIS OF NAIL 01/15/2011 LORNA DELGADO, ADITYA R 274.9 GOUT UNSPECIFIED 01/15/2011 LORNA DELGADO, ADITYA R 734 FLAT FOOT 01/15/2011 MELI MELARA APRN 110.1 DERMATOPHYTOSIS OF NAIL 01/15/2011 MELI MELARA APRN 274.9 GOUT UNSPECIFIED 01/15/2011 MELI MELARA APRN 734 FLAT FOOT 01/15/2011 WHITE DDS, CAMILLA J 110.1 DERMATOPHYTOSIS OF NAIL 01/15/2011 WHITE DDS, CAMILLA J 274.9 GOUT UNSPECIFIED 01/15/2011 WHITE DDS, CAMILLA J 734 FLAT FOOT 01/15/2011 MELI MELARA APRN 110.1 DERMATOPHYTOSIS OF NAIL 01/15/2011 MELI MELARA APRN 274.9 GOUT UNSPECIFIED 01/15/2011 MELI MELARA APRN 734 FLAT FOOT 01/15/2011 MATTHEWS DO, BERKLEY K 110.1 DERMATOPHYTOSIS OF NAIL 01/15/2011 MATTHEWS DO, BERKLEY K 274.9 GOUT UNSPECIFIED 01/15/2011 MATTHEWS DO, BERKLEY K 734 FLAT FOOT 01/15/2011 MELI MELARA APRN 110.1 DERMATOPHYTOSIS OF NAIL 01/15/2011 MELI MELARA APRN 274.9 GOUT UNSPECIFIED 01/15/2011 MELI MELARA APRN 734 FLAT FOOT 01/15/2011 MATTHEWS DO, BERKLEY K 110.1 DERMATOPHYTOSIS OF NAIL 01/15/2011 MATTHEWS DO, BERKLEY K 274.9 GOUT UNSPECIFIED 01/15/2011 MATTHEWS DO, BERKLEY K 734 FLAT FOOT 01/15/2011 MELI MELARA APRN 110.1 DERMATOPHYTOSIS OF NAIL 01/15/2011 MELI MELARA APRN 274.9 GOUT UNSPECIFIED 01/15/2011 MELI MELARA APRN 734 FLAT FOOT 01/15/2011 MELI MELARA APRN 110.1 DERMATOPHYTOSIS OF NAIL 01/15/2011 MELI MELARA APRN 274.9 GOUT UNSPECIFIED 01/15/2011 MELI MELARA APRN 734 FLAT FOOT 06/12/2011 MELI MELARA APRN T 473.9 UNSPECIFIED SINUSITIS (CHRONIC) 06/12/2011 MELI MELARA APRN T 784.0 HEADACHE 06/12/2011 473.9 UNSPECIFIED SINUSITIS (CHRONIC) 06/12/2011 784.0 HEADACHE 06/12/2011 TAZ CURRY MD 473.9 UNSPECIFIED SINUSITIS (CHRONIC) 06/12/2011 TAZ CURRY MD 784.0 HEADACHE 06/12/2011 473.9 UNSPECIFIED SINUSITIS (CHRONIC) 06/12/2011 784.0 HEADACHE 06/12/2011 473.9 UNSPECIFIED SINUSITIS (CHRONIC) 06/12/2011 784.0 HEADACHE 06/12/2011 473.9 UNSPECIFIED SINUSITIS (CHRONIC) 06/12/2011 784.0 HEADACHE 06/12/2011 BERKLEY MATTHEWS DO K 473.9 UNSPECIFIED SINUSITIS (CHRONIC) 06/12/2011 MATTHEWS KRISTI GREERA K 784.0 HEADACHE 06/12/2011 MELI MELARA APRN T 473.9 UNSPECIFIED SINUSITIS (CHRONIC) 06/12/2011 MELI MELARA APRN 784.0 HEADACHE 06/12/2011 MELI MELARA APRN T 473.9 UNSPECIFIED SINUSITIS (CHRONIC) 06/12/2011 MELI MELARA APRN T 784.0 HEADACHE 06/12/2011 NADEGE MONTANO APRNIA R 473.9 UNSPECIFIED SINUSITIS (CHRONIC) 06/12/2011 SUYAPA MONTANO APRNRICIA R 784.0 HEADACHE 06/12/2011 MELI MELARA APRN T 473.9 UNSPECIFIED SINUSITIS (CHRONIC) 06/12/2011 MELI MELARA APRN T 784.0 HEADACHE 06/12/2011 LORNA SANDY, ADITYA R 473.9 UNSPECIFIED SINUSITIS (CHRONIC) 06/12/2011 LORNA SANDY, ADITYA R 784.0 HEADACHE 06/12/2011 MELI MELARA APRN T 473.9 UNSPECIFIED SINUSITIS (CHRONIC) 06/12/2011 MELI MELARA APRN T 784.0 HEADACHE 06/12/2011 PERNELL BUSBYSCAMILLA 473.9 UNSPECIFIED SINUSITIS (CHRONIC) 06/12/2011 WHITE DDS, CAMILLA J 784.0 HEADACHE 06/12/2011 MELI MELARA APRN T 473.9 UNSPECIFIED SINUSITIS (CHRONIC) 06/12/2011 MELI MELARA APRN T 784.0 HEADACHE 06/12/2011 MATTHEWS DO, BERKLEY K 473.9 UNSPECIFIED SINUSITIS (CHRONIC) 06/12/2011 MATTHEWS DO, BERKLEY K 784.0 HEADACHE 06/12/2011 MELI MELARA APRN T 473.9 UNSPECIFIED SINUSITIS (CHRONIC) 06/12/2011 MELI MELARA APRN T 784.0 HEADACHE 06/12/2011 MATTHEWS DO, BERKLEY K 473.9 UNSPECIFIED SINUSITIS (CHRONIC) 06/12/2011 MATTHEWS DO, BERKLEY K 784.0 HEADACHE 06/12/2011 MELI MELARA APRN T 473.9 UNSPECIFIED SINUSITIS (CHRONIC) 06/12/2011 MELI MELARA APRN T 784.0 HEADACHE 06/12/2011 MELI MELARA APRN T 473.9 UNSPECIFIED SINUSITIS (CHRONIC) 06/12/2011 MELI MELARA APRN 784.0 HEADACHE 07/18/2011 MELI MELARA APRN 786.09 RESPIRATORY ABNORMALITY OTHER 07/18/2011 786.09 RESPIRATORY ABNORMALITY OTHER 07/18/2011 NAMRATA LUNDY, TAZ Watson 786.09 RESPIRATORY ABNORMALITY OTHER 07/18/2011 786.09 RESPIRATORY ABNORMALITY OTHER 07/18/2011 786.09 RESPIRATORY ABNORMALITY OTHER 07/18/2011 786.09 RESPIRATORY ABNORMALITY OTHER 07/18/2011 MATTHEWS DO, BERKLEY K 786.09 RESPIRATORY ABNORMALITY OTHER 07/18/2011 MELI MELARA APRN 786.09 RESPIRATORY ABNORMALITY OTHER 07/18/2011 MELI MELARA APRN 786.09 RESPIRATORY ABNORMALITY OTHER 07/18/2011 KEYLA MONTANO APRN R 786.09 RESPIRATORY ABNORMALITY OTHER 07/18/2011 MELI MELARA APRN 786.09 RESPIRATORY ABNORMALITY OTHER 07/18/2011 ADITYA ROTHMAN APRN R 786.09 RESPIRATORY ABNORMALITY OTHER 07/18/2011 MELI MELARA APRN 786.09 RESPIRATORY ABNORMALITY OTHER 07/18/2011 WHITE DDS, CAMILLA J 786.09 RESPIRATORY ABNORMALITY OTHER 07/18/2011 MELI MELARA APRN 786.09 RESPIRATORY ABNORMALITY OTHER 07/18/2011 MATTHEWS DO, BERKLEY K 786.09 RESPIRATORY ABNORMALITY OTHER 07/18/2011 MELI MELARA APRN 786.09 RESPIRATORY ABNORMALITY OTHER 07/18/2011 KRISTI MATTHEWS DOA K 786.09 RESPIRATORY ABNORMALITY OTHER 07/18/2011 MELI MELARA APRN 786.09 RESPIRATORY ABNORMALITY OTHER 07/18/2011 MELI MELARA APRN 786.09 RESPIRATORY ABNORMALITY OTHER 03/03/2012 MELI MELARA APRN 455.6 HEMORRHOIDS NOS 03/03/2012 455.6 HEMORRHOIDS NOS 03/03/2012 NAMRATA LUNDY, TAZ Watson 455.6 HEMORRHOIDS NOS 03/03/2012 455.6 HEMORRHOIDS NOS 03/03/2012 455.6 HEMORRHOIDS NOS 03/03/2012 455.6 HEMORRHOIDS NOS 03/03/2012 KRISTI MATTHEWS DOA K 455.6 HEMORRHOIDS NOS 03/03/2012 MELI MELARA APRN 455.6 HEMORRHOIDS NOS 03/03/2012 MELI MELARA APRN 455.6 HEMORRHOIDS NOS 03/03/2012 KEYLA MONTANO APRN 455.6 HEMORRHOIDS NOS 03/03/2012 MELI MELARA APRN 455.6 HEMORRHOIDS NOS 03/03/2012 ADITYA ROTHMAN APRN 455.6 HEMORRHOIDS NOS 03/03/2012 MELI MELARA APRN 455.6 HEMORRHOIDS NOS 03/03/2012 PERNELL DDS, CAMILLA J 455.6 HEMORRHOIDS NOS 03/03/2012 MELI MELARA APRN 455.6 HEMORRHOIDS NOS 03/03/2012 CASSIE GREER, BERKLEY K 455.6 HEMORRHOIDS NOS 03/03/2012 MELI MELARA APRN 455.6 HEMORRHOIDS NOS 03/03/2012 MATTHEWS KRISTI GREERA K 455.6 HEMORRHOIDS NOS 03/03/2012 MELI MELARA APRN 455.6 HEMORRHOIDS NOS 03/03/2012 MELI MELARA APRN 455.6 HEMORRHOIDS NOS 06/14/2012 550.90 HERNIA INGUINAL 06/14/2012 NAMRATA LUNDY, TAZ Watson 550.90 HERNIA INGUINAL 06/14/2012 550.90 HERNIA INGUINAL 06/14/2012 550.90 HERNIA INGUINAL 06/14/2012 550.90 HERNIA INGUINAL 06/14/2012 BERKLEY MATTHEWS DO K 550.90 HERNIA INGUINAL 06/14/2012 MELI MELARA APRN 550.90 HERNIA INGUINAL 06/14/2012 MELI MELARA APRN 550.90 HERNIA INGUINAL 06/14/2012 MONTANO GAS SUBSTATION OPERATOR, KEYLA R 550.90 HERNIA INGUINAL 06/14/2012 MELI MELARA APRN T 550.90 HERNIA INGUINAL 06/14/2012 LORNA DELGADO ADITYA R 550.90 HERNIA INGUINAL 06/14/2012 MELI MELARA APRN T 550.90 HERNIA INGUINAL 06/14/2012 WHITE DDS, CAMILLA J 550.90 HERNIA INGUINAL 06/14/2012 MELI MELARA APRN T 550.90 HERNIA INGUINAL 06/14/2012 MATTHEWS DO, BERKLEY K 550.90 HERNIA INGUINAL 06/14/2012 MELI MELARA APRN T 550.90 HERNIA INGUINAL 06/14/2012 MATTHEWS DO, BERKLEY K 550.90 HERNIA INGUINAL 06/14/2012 MELI MELARA APRN T 550.90 HERNIA INGUINAL 06/14/2012 MELI MELARA APRN T 550.90 HERNIA INGUINAL 11/08/2012 272.0 HYPERCHOLESTEROLEMIA 11/08/2012 272.0 HYPERCHOLESTEROLEMIA 11/08/2012 272.0 HYPERCHOLESTEROLEMIA 11/08/2012 MATTHEWS DO, BERKLEY K 272.0 HYPERCHOLESTEROLEMIA 11/08/2012 MELI MELARA APRN 272.0 HYPERCHOLESTEROLEMIA 11/08/2012 MELI MELARA APRN 272.0 HYPERCHOLESTEROLEMIA 11/08/2012 NADEGE MONTANO APRNIA R 272.0 HYPERCHOLESTEROLEMIA 11/08/2012 MELI MELARA APRN T 272.0 HYPERCHOLESTEROLEMIA 11/08/2012 YODIT ROTHMAN APRNINA R 272.0 HYPERCHOLESTEROLEMIA 11/08/2012 MELI MELARA APRN T 272.0 HYPERCHOLESTEROLEMIA 11/08/2012 WHITE DDS, CAMILLA J 272.0 HYPERCHOLESTEROLEMIA 11/08/2012 MELI MELARA APRN T 272.0 HYPERCHOLESTEROLEMIA 11/08/2012 MATTHEWS DO, BERKLEY K 272.0 HYPERCHOLESTEROLEMIA 11/08/2012 MELI MELARA APRN T 272.0 HYPERCHOLESTEROLEMIA 11/08/2012 MATTHEWS DO, BERKLEY K 272.0 HYPERCHOLESTEROLEMIA 11/08/2012 MELI MELARA APRN T 272.0 HYPERCHOLESTEROLEMIA 11/08/2012 MELI MELARA APRN T 272.0 HYPERCHOLESTEROLEMIA 03/29/2013 MATTHEWS DO, BERKLEY K V04.81 FLU SHOT 03/29/2013 MELI MELARA APRN V04.81 FLU SHOT 03/29/2013 MELI MELARA APRN V04.81 FLU SHOT 03/29/2013 SUYAPA MONTANO APRNRICIA R V04.81 FLU SHOT 03/29/2013 MELI MELARA APRN V04.81 FLU SHOT 03/29/2013 YODIT ROTHMAN APRNINA R V04.81 FLU SHOT 03/29/2013 MELI MELARA APRN T V04.81 FLU SHOT 03/29/2013 WHITE [place] MCLAUGHLIN V04.81 FLU SHOT 03/29/2013 MELI MELARA APRN V04.81 FLU SHOT 03/29/2013 MATTHEWS DO, BERKLEY K V04.81 FLU SHOT 03/29/2013 MELI MELARA APRN T V04.81 FLU SHOT 03/29/2013 MATTHEWS DO, BERKLEY K V04.81 FLU SHOT 03/29/2013 MELI MELARA APRN T V04.81 FLU SHOT 03/29/2013 MELI MELARA APRN V04.81 FLU SHOT 04/24/2014 KEYLA MONTANO APRN R 461.9 SINUSITIS ACUTE 04/24/2014 MELI MELARA APRN 461.9 SINUSITIS ACUTE 04/24/2014 ADITYA ROTHMAN APRN R 461.9 SINUSITIS ACUTE 04/24/2014 MELI MELARA APRN 461.9 SINUSITIS ACUTE 04/24/2014 PERNELL BUSBYS, CAMILLA J 461.9 SINUSITIS ACUTE 04/24/2014 MELI MELARA APRN 461.9 SINUSITIS ACUTE 04/24/2014 MATTHEWS DO, BERKLEY K 461.9 SINUSITIS ACUTE 04/24/2014 MELI MELARA APRN T 461.9 SINUSITIS ACUTE 04/24/2014 MATTHEWS DO, BERKLEY K 461.9 SINUSITIS ACUTE 04/24/2014 MELI MELARA APRN 461.9 SINUSITIS ACUTE 04/24/2014 MELI MELARA APRN 461.9 SINUSITIS ACUTE 04/26/2014 MELI MELARA APRN 892.0 OPEN WOUND OF FOOT EXCEPT TOE(S) ALONE WITHOUT COMPLICATION 04/26/2014 MELI MELARA APRN V06.1 TDAP DX 04/26/2014 YODIT ROTHMAN APRNINA R 892.0 OPEN WOUND OF FOOT EXCEPT TOE(S) ALONE WITHOUT COMPLICATION 04/26/2014 ADITYA ROTHMAN APRN R V06.1 TDAP DX 04/26/2014 MELI MELARA APRN 892.0 OPEN WOUND OF FOOT EXCEPT TOE(S) ALONE WITHOUT COMPLICATION 04/26/2014 MELI MELARA APRN V06.1 TDAP DX 04/26/2014 PERNELL DDS, CAMILLA J 892.0 OPEN WOUND OF FOOT EXCEPT TOE(S) ALONE WITHOUT COMPLICATION 04/26/2014 WHITE DDS, ACMILLA J V06.1 TDAP DX 04/26/2014 MELI MELARA APRN 892.0 OPEN WOUND OF FOOT EXCEPT TOE(S) ALONE WITHOUT COMPLICATION 04/26/2014 MELI MELARA APRN V06.1 TDAP DX 04/26/2014 MATTHEWS DO, BERKLEY K 892.0 OPEN WOUND OF FOOT EXCEPT TOE(S) ALONE WITHOUT COMPLICATION 04/26/2014 MATTHEWS DO, BERKLEY K V06.1 TDAP DX 04/26/2014 MELI MELARA APRN 892.0 OPEN WOUND OF FOOT EXCEPT TOE(S) ALONE WITHOUT COMPLICATION 04/26/2014 MELI MELARA APRN V06.1 TDAP DX 04/26/2014 MATTHEWS DO, BERKLEY K 892.0 OPEN WOUND OF FOOT EXCEPT TOE(S) ALONE WITHOUT COMPLICATION 04/26/2014 MATTHEWS DO, BERKLEY K V06.1 TDAP DX 04/26/2014 MELI MELARA APRN 892.0 OPEN WOUND OF FOOT EXCEPT TOE(S) ALONE WITHOUT COMPLICATION 04/26/2014 MELI MELARA APRN V06.1 TDAP DX 04/26/2014 MELI MELARA APRN 892.0 OPEN WOUND OF FOOT EXCEPT TOE(S) ALONE WITHOUT COMPLICATION 04/26/2014 MELI MELARA APRN V06.1 TDAP DX 05/04/2014 ADITYA ROTHMAN APRN 477.0 ALLERGIC RHINITIS DUE TO POLLEN 05/04/2014 MELI MELARA APRN 477.0 ALLERGIC RHINITIS DUE TO POLLEN 05/04/2014 WHITE DDS, CAMILLA J 477.0 ALLERGIC RHINITIS DUE TO POLLEN 05/04/2014 MELI MELARA APRN 477.0 ALLERGIC RHINITIS DUE TO POLLEN 05/04/2014 MATTHEWS DO, BERKLEY K 477.0 ALLERGIC RHINITIS DUE TO POLLEN 05/04/2014 MELI MELARA APRN 477.0 ALLERGIC RHINITIS DUE TO POLLEN 05/04/2014 MATTHEWS DO, BERKLEY K 477.0 ALLERGIC RHINITIS DUE TO POLLEN 05/04/2014 MELI MELARA APRN 477.0 ALLERGIC RHINITIS DUE TO POLLEN 05/04/2014 MELI MELARA APRN 477.0 ALLERGIC RHINITIS DUE TO POLLEN 08/07/2014 KELTON GAS SUBSTATION OPERATOR, MELI T 300.00 ANXIETY UNSPEC 08/07/2014 BERKLEY MATTHEWS DO K 300.00 ANXIETY UNSPEC 08/07/2014 EKLTON GAS SUBSTATION OPERATOR, MELI T 300.00 ANXIETY UNSPEC 08/07/2014 BERKLEY MATTHEWS DO K 300.00 ANXIETY UNSPEC 08/07/2014 KELTON HANCOCKN, MELI T 300.00 ANXIETY UNSPEC 08/07/2014 KELTON HANCOCKN, MELI T 300.00 ANXIETY UNSPEC 08/18/2014 KELTON HANCOCKN, MELI T 786.59 OTHER CHEST PAIN 08/18/2014 BERKLEY MATTHEWS DO K 786.59 OTHER CHEST PAIN 08/18/2014 KELTON GAS SUBSTATION OPERATOR, MELI T 786.59 OTHER CHEST PAIN 08/18/2014 KELTON HANCOCKN, MELI T 786.59 OTHER CHEST PAIN 10/01/2017 MARTA LUNDY, VANESSA Dey Ot N50.811 RIGHT TESTICULAR PAIN 10/01/2017 VANESSA LOZANO MD, Ot Z85.47 PERSONAL HISTORY OF MALIGNANT NEOPLASM O 10/06/2017 VANESSA LOZANO MD Ot N50.811 RIGHT TESTICULAR PAIN 10/06/2017 VANESSA LOZANO MD Ot Z85.47 PERSONAL HISTORY OF MALIGNANT NEOPLASM O 10/23/2017 VANESSA LOZANO MD Ot N50.811 RIGHT TESTICULAR PAIN 10/23/2017 VANESSA LOZANO MD, Ot Z85.47 PERSONAL HISTORY OF MALIGNANT NEOPLASM O 10/30/2017 VANESSA LOZANO MD Ot N50.811 RIGHT TESTICULAR PAIN 10/30/2017 VANESSA LOZANO MD, Ot Z85.47 PERSONAL HISTORY OF MALIGNANT NEOPLASM O 11/03/2017 CHEMA BECERRIL DO Ot K40.90 UNIL INGUINAL HERNIA, W/O OBST OR GANGR, 11/03/2017 CHEMA BECERRIL DO Ot Z01.818 ENCOUNTER FOR OTHER PREPROCEDURAL EXAMIN 11/03/2017 CHEMA BECERRIL DO Ot K40.90 UNIL INGUINAL HERNIA, W/O OBST OR GANGR, 11/03/2017 CHEMA BECERRIL DO Ot Z01.818 ENCOUNTER FOR OTHER PREPROCEDURAL EXAMIN 11/05/2017 VANESSA LOZANO MD Ot N50.811 RIGHT TESTICULAR PAIN 11/05/2017 VANESSA LOZANO MD, Ot Z85.47 PERSONAL HISTORY OF MALIGNANT NEOPLASM O Procedures Code Description Performed By Performed On General S Taz Curry 05/10/2012 39300 XRAY SINUSES PARANASAL COMP MIN 3 VIEWS 05/24/2012 96989 CMP 03/04/2013 03845 LIPID PANEL 03/04/2013 54102 A1C (IN-HOUSE) 03/04/2013 31541 CBC 03/04/2013 24917 ROUTINE VENIPUNCTURE 03/11/2013 12011 A1C (IN-HOUSE) 03/11/2013 04745 CBC 03/11/2013 94220 CMP 03/11/2013 85128 LIPID PANEL 03/11/2013 5601660 GFR CALC (RESULT ONLY) 03/11/2013 2000F BLOOD PRESSURE CHECK 08/18/2014 58231 OXIMETRY 08/18/2014 99143 ROUTINE VENIPUNCTURE 10/17/2014 35004 TESTOSTERONE TOTAL- MALES 10/17/2014 Results Test Result Range CBC With Differential/Platelet - 01/30/17 08:05 WBC 8.1 x10E3/uL 3.4-10.8 RBC 4.94 x10E6/uL 4.14-5.80 Hemoglobin 14.7 g/dL 12.6-17.7 Hematocrit 44.5 % 37.5-51.0 MCV 90 fL 79-97 MCH 29.8 pg 26.6-33.0 MCHC 33.0 g/dL 31.5-35.7 RDW 13.6 % 12.3-15.4 Platelets 210 x10E3/uL 150-379 Neutrophils 57 % Lymphs 35 % Monocytes 6 % Eos 2 % Basos 0 % Neutrophils (Absolute) 4.6 x10E3/uL 1.4-7.0 Lymphs (Absolute) 2.8 x10E3/uL 0.7-3.1 Monocytes(Absolute) 0.5 x10E3/uL 0.1-0.9 Eos (Absolute) 0.1 x10E3/uL 0.0-0.4 Baso (Absolute) 0.0 x10E3/uL 0.0-0.2 Immature Granulocytes 0 % Immature Grans (Abs) 0.0 x10E3/uL 0.0-0.1 Comp. Metabolic Panel (14) - 01/30/17 08:05 Glucose, Serum 95 mg/dL 65-99 BUN 16 mg/dL 8-27 Creatinine, Serum 1.10 mg/dL 0.76-1.27 eGFR If NonAfricn Am 69 mL/min/1.73 >59 eGFR If Africn Am 79 mL/min/1.73 >59 BUN/Creatinine Ratio 15 10-24 Sodium, Serum 138 mmol/L 134-144 Potassium, Serum 4.5 mmol/L 3.5-5.2 Chloride, Serum 99 mmol/L 96-106 Carbon Dioxide, Total 23 mmol/L 18-29 Calcium, Serum 9.8 mg/dL 8.6-10.2 Protein, Total, Serum 8.2 g/dL 6.0-8.5 Albumin, Serum 4.2 g/dL 3.6-4.8 Globulin, Total 4.0 g/dL 1.5-4.5 A/G Ratio 1.1 1.2-2.2 Bilirubin, Total 0.5 mg/dL 0.0-1.2 Alkaline Phosphatase, S 86 IU/L 39-117 AST (SGOT) 18 IU/L 0-40 ALT (SGPT) 22 IU/L 0-44 Lipid Panel - 01/30/17 08:05 Cholesterol, Total 233 mg/dL 100-199 Triglycerides 115 mg/dL 0-149 HDL Cholesterol 37 mg/dL >39 VLDL Cholesterol Parth 23 mg/dL 5-40 LDL Cholesterol Calc 173 mg/dL 0-99 TSH - 01/30/17 08:05 TSH 0.762 uIU/mL 0.450-4.500 PSA - 09/04/17 09:15 PSA, TOTAL 1.8 ng/mL < OR=4.0 Encounters ACCT No. Visit Date/Time Discharge Status Pt. Type Provider Facility Loc./Unit Complaint [id number] 10/17/2014 08:09:00 10/17/2014 23:59:59 CLS Outpatient MELI MELARA APRN [id number] 10/09/2014 08:44:00 10/09/2014 23:59:59 CLS Outpatient MELI MELARA APRN [id number] 09/26/2014 09:49:00 09/26/2014 23:59:59 CLS Outpatient BERKLEY MATTHEWS DO [id number] 08/18/2014 11:17:00 08/18/2014 23:59:59 CLS Outpatient MELI MELARA APRN [id number] 08/18/2014 08:28:00 08/18/2014 23:59:59 CLS Outpatient BERKLEY MATTHEWS DO [id number] 08/07/2014 14:59:00 08/07/2014 23:59:59 CLS Outpatient MELI MELARA APRN [id number] 05/22/2014 09:30:00 05/22/2014 23:59:59 CLS Outpatient CAMILLA GIMENEZ DDS [id number] 05/10/2014 17:50:00 05/10/2014 23:59:59 CLS Outpatient KELTON HANCOCKNMELI Gay [id number] 05/04/2014 08:48:00 05/04/2014 23:59:59 CLS Outpatient LORNA GAS SUBSTATION OPERATOR ADITYA [place] [id number] 04/26/2014 17:56:00 04/26/2014 23:59:59 CLS Outpatient KELTON HANCOCKMELI Michele [id number] 04/24/2014 13:09:00 04/24/2014 23:59:59 CLS Outpatient CHARMAINE HANCOCKNNADEGEMAN [place] [id number] 11/23/2013 12:09:00 11/23/2013 23:59:59 CLS Outpatient KELTON GAS SUBSTATION OPERATORMELI Michele [id number] 06/10/2013 11:25:00 06/10/2013 23:59:59 CLS Outpatient KELTON HANCOCKMELI Michele [id number] 03/29/2013 08:32:00 03/29/2013 23:59:59 CLS Outpatient BERKLEY MATTHEWS DO [id number] 07/20/2012 12:10:00 07/20/2012 23:59:59 CLS Outpatient TAZ CURRY MD [id number] 06/14/2012 11:14:00 06/14/2012 23:59:59 CLS Outpatient [id number] 05/10/2012 10:06:00 05/10/2012 23:59:59 CLS Outpatient KELTON GAS SUBSTATION OPERATORMELI Michele [id number] 03/11/2013 07:57:00 Document Registration [id number] 03/04/2013 10:46:00 Document Registration [id number] 11/08/2012 08:49:00 Document Registration [id number] 09/04/2017 08:20:00 09/04/2017 23:59:59 CLS Outpatient KELTON GAS SUBSTATION OPERATORMELI Michele [facility] [id number] 09/04/2017 08:20:00 Document Registration [id number] 11/03/2017 05:41:00 11/03/2017 14:14:00 DIS Outpatient CHEMA BECERRIL DO [facility] PREOP RECURRENT LEFT INGUINAL HERNIA [id number] 09/30/2017 08:21:00 09/30/2017 23:59:59 CLS Outpatient VANESSA LOZANO MD [facility] RAD LT TESTICULAR PAIN [id number] 02/24/2017 07:14:00 02/24/2017 23:59:59 CLS Preadmit MELI MELARA [facility] SLEEP VANESSA G47.33 [id number] 11/05/2017 08:04:00 ACT Outpatient CHEMA BECERRIL DO [facility] SDC RECURRENT LEFT INGUINAL HERNIA [id number] 01/31/2017 08:06:00 Document Registration
[2017-11-05] MEDS ORDERED: ceFAZolin 2 GM IV Premixed 50 ML IV ONE (08:15)
[2017-11-05 08:20] VITALS: BP 147/92
[2017-11-05] MEDS: LACTATED RINGERS 1,000 ML IV PRN ×2 (08:40→11:00)
[2017-11-05] MEDS ORDERED: LIDOCAINE PF 2% 5 ML (XYLOCAINE) VIAL ONE (09:38)
[2017-11-05] MEDS ORDERED: DEXAMETHASONE 10 MG/ML (DECADRON) 1 ML VIAL ONE (09:38)
[2017-11-05] MEDS ORDERED: proPOfol 200 MG/20 ML (DIPRIVAN) VIAL IV ONE (09:38)
[2017-11-05] MEDS ORDERED: ONDANSETRON 4 MG/2 ML (SDV) Z0FRAN ONE (09:38)
[2017-11-05] MEDS ORDERED: fentaNYL INJECTION 100 MCG/2 ML AMP ONE ×2 (09:39→10:18)
[2017-11-05] MEDS ORDERED: MIDAZOLAM 2 MG/2 ML (VERSED) VIAL ONE (09:39)
--- NOTE | 2017-11-05 09:58 | Progress Note-Pre Operative ---
Pre-Operative Progress Note H&P Reviewed The H&P was reviewed, patient examined and no changes noted. Date Seen by Provider: November 05, 2017 Time Seen by Provider: 09:58 Date H&P Reviewed: November 05, 2017 Time H&P Reviewed: 09:58 Pre-Operative Diagnosis: recurrent left inguinal hernia CHEMA BECERRIL DO November 05, 2017 09:58
[2017-11-05] MEDS ORDERED: SEVOFLURANE (ULTANE) 15 ML INHAL SOLN ONE ×2 (10:13→11:24)
[2017-11-05] MEDS: LIDOCAINE 1% INJ 20 ML 20 ML VIAL ONE ×2 (10:35→11:25)
[2017-11-05] MEDS: BUPIVACAINE 0.5% 30 ML (SENSORCAINE) VIAL ONE ×2 (10:35→11:25)
--- NOTE | 2017-11-05 11:16 | Progress Note-Post Operative ---
Post-Operative Progess Note Surgeon (s)/Resource Analyst (s) Surgeon CHEMA BECERRIL DO Resource Analyst: Dr. Sethi Pre-Operative Diagnosis recurrent left inguinal hernia Post-Operative Diagnosis incarcerated left direct inguinal hernia Procedure & Operative Findings Date of Procedure 11/05/17 Procedure Performed/Findings open left inguinal hernia repair- recurrent incarcerated Anesthesia Type general Estimated Blood Loss Estimated blood loss (mL): min Specimens/Packing Specimens Removed na CHEMA BECERRIL DO November 05, 2017 11:16
[2017-11-05] MEDS ORDERED: ACHD5005 PO (11:18)
[2017-11-05] MEDS ORDERED: DOCU-143 PO (11:18)
--- NOTE | 2017-11-05 11:20 | Discharge Inst-Simple/Standard ---
Discharge Inst-Standard Discharge Medications New, Converted or Re-Newed RX: RX on Chart Patient Instructions/Follow Up Plan of Care/Instructions/FU: 2 weeks Bryan Activity as Tolerated: No Discharge Diet: Regular Diet Other Inst to Patient Follow up Appt: Make appointment for 2 week. Instructions: No lifting greater than 10 pounds. No strenuous activity. May shower in 24 hours, no tub bath or soaking. Use incentive spirometer at home as directed. No Smoking Skin/Wound Care: May remove bandages in 24 hours. You have special glue over incision it will fall off on its own. Symptoms to Report: Appetite Changes, Extremity Discoloration, Numbness/Tingling, Swelling Increased , Bleeding Excessive, Eyesight Changes, Pain Increased, Urine Color Change, Constipation(Persistent), Fever over 101 degree F, Pain/Pressure in chest, Urinating Difficulty, Cough Up/Vomit Blood, Heart Beat Irreg/Pounding, Pain/ Pressure in jaw, Vaginal Bleeding Increase, Cramps in feet or legs, Lightheadedness, Pain/Pressure in shoulder, Diarrhea(Persistent), Memory Changes Suddenly, Questions/Concerns, Weight gain consecutive days, Dizziness/ Fainting, Nausea/Vomiting, Shortness of Breath, Weight gain over 2 pounds If questions or concerns contact your physician Or seek help at emergency department. CHEMA BECERRIL DO November 05, 2017 11:20
[2017-11-05] MEDS ORDERED: HYDROmorphone 2 MG/ML VIAL (DILAUDID) IVP PRN (11:30)
[2017-11-05] MEDS ORDERED: ONDANSETRON 4 MG/2 ML (SDV) Z0FRAN IVP PRN (11:30)
[2017-11-05] MEDS ORDERED: HYDROcodone/APAP 5 MG/325 MG (LORTAB) TAB PO PRN (11:30)
[2017-11-05] MEDS: morphine INJ 10 MG/ML 1ML (SYR OR VIAL) IVP PRN ×2 (12:00→12:05)
[2017-11-05 12:40] VITALS: BP 115/68
[2017-11-05 13:10] VITALS: BP 128/72
[2017-11-05 13:40] VITALS: BP_SYST 127; BP_SYST 128; BP_DIAS 72
[2017-11-05 14:00] VITALS: BP 127/72
--- NOTE | 2017-11-07 02:44 | OPERATIVE REPORT ---
DATE OF SERVICE: 11/05/2017 PREOPERATIVE DIAGNOSIS: Recurrent left inguinal hernia. POSTOPERATIVE DIAGNOSIS: Recurrent incarcerated direct inguinal hernia. PROCEDURE: Open left direct inguinal hernia repair. SURGEON: Chema Adams DO SOFTWARE DESIGN ENGINEER: Dr. Sethi, assisted in retraction, dissection and closure. ANESTHESIA: General. ESTIMATED BLOOD LOSS: Minimal. COMPLICATIONS: None. INDICATIONS: The patient is a 67-year-old with recurrent left inguinal hernia. He understands risks and benefits of repair and wished to proceed with procedure. Consent was signed in the chart. DESCRIPTION OF PROCEDURE: The patient was taken to the operating suite. He was prepped and draped in sterile fashion. Surgical pause was performed. Local anesthetic was infiltrated into the left inguinal region and also performed an ilioinguinal nerve block. A #15 blade scalpel was used to make the skin incision taken down to the external oblique, which was then opened down to the external ring. The external oblique was then mobilized from the tissue underneath and the spermatic cord was then dissected around bluntly. This was then elevated. A Ridgeway drain was placed around it. There is a large direct defect, which was incarcerated through the defect. The contents were then dissected around, which was fat, which was then able to be reduced after being mobilized and freed. The defect was then closed using 0 Vicryl using transversalis fascia and the shelving edge. A ProGrip mesh was then cut to size and secured to Coleman's ligament and then incorporated around the spermatic cord. There was no indirect defect present. The mesh was placed under the external oblique. The external oblique was then closed using 3-0 Vicryl in a running fashion, recreating the external ring. Subcutaneous tissues were then reapproximated using 3-0 Vicryl. The skin was then closed using 4-0 Monocryl running subcuticular fashion. The area was then washed and dried and a SwiftSet was placed over the incision. The patient tolerated procedure well without any complications. He was taken to the recovery room in stable condition. RECOMMENDATIONS: The patient will follow up in the office in approximately 2 weeks. Job ID: [id number] DocumentID: [id number] Dictated Date: 11/06/2017 20:03:19 Wire Insulator Date: 11/07/2017 02:43:24 Dictated By: CHEMA ADAMS DO [facility]
== END 2017-11-05 14:05 | disposition home or self-care (01) ==
LOC: SDC 08:04
PROVIDERS: ATTEND Surgery
DX: K40.31 Unilateral inguinal hernia, with obstruction, without gangrene, recurrent (principal); I10 Essential (primary) hypertension; Z79.899 Other long term (current) drug therapy; Z87.891 Personal history of nicotine dependence
CPT/HCPCS: 87081

== ENCOUNTER 2018-09-21 05:42 | Outpatient (CLI) | payer MEDICARE, MEDICAID ==
[~2018-09-21] VITALS: Ht 177.8 cm; Wt 93.0 kg
[~2018-09-21 05:42] MED LIST changes: +ACHD5005 PO; -AMLO10TA2 PO; +AMLO10TA7 PO; +DOCU-143 PO
[2018-09-21] MEDS ORDERED: NEBI20TA2 PO (10:36)
== END 2018-09-21 10:55 | disposition home or self-care (01) ==
LOC: PREOP 05:42
PROVIDERS: ATTEND Surgery
DX: Z01.818 Encounter for other preprocedural examination (principal)

== ENCOUNTER 2018-09-28 08:09 | Day surgery (SDC) | payer MEDICARE, MEDICAID ==
[~2018-09-28] VITALS: Ht 177.8 cm; Wt 93.0 kg
[~2018-09-28 08:09] MED LIST changes: +NEBI20TA2 PO
[2018-09-28 08:15] VITALS: BP 185/106
[2018-09-28] MEDS ORDERED: LACTATED RINGERS 1,000 ML IV STA (08:17)
[2018-09-28] MEDS ORDERED: LACTATED RINGERS 1,000 ML IV ONE (08:25)
[2018-09-28] MEDS ORDERED: meTOprolol 5 MG/5 ML (LOPRESSOR) VIAL ONE (08:27)
[2018-09-28] MEDS ORDERED: MIDAZOLAM 2 MG/2 ML (VERSED) VIAL ONE (08:39)
[2018-09-28] MEDS ORDERED: PROPOFOL INJECTION 50 ML IV ONE ×2 (08:39→09:16)
[2018-09-28] MEDS ORDERED: meTOprolol 5 MG/5 ML (LOPRESSOR) VIAL IV ONE (08:45)
--- NOTE | 2018-09-28 08:47 | Progress Note-Pre Operative ---
Pre-Operative Progress Note H&P Reviewed The H&P was reviewed, patient examined and no changes noted. Date Seen by Provider: Sep 28, 2018 Time Seen by Provider: 08:45 Date H&P Reviewed: Sep 28, 2018 Time H&P Reviewed: 08:45 Pre-Operative Diagnosis: +CHEMA Jefferson DO Sep 28, 2018 08:47
--- OUTSIDE RECORDS SUMMARY | 2018-09-28 08:54 | XMS REPORT ---
Author Author MELI MELARA Organization [facility] Address [address] [place] [address] Care Team Providers Care Quality Assurance Supervisor Trim Name Role Phone MELI MELARA Unavailable PROBLEMS Type Condition ICD9-CM Code BES38-SR Code Onset Dates Condition Status SNOMED Code Problem Hypertension, benign I10 Active 65830678 Problem Other chronic gastritis without hemorrhage K29.50 Active 6505569 Problem Primary insomnia F51.01 Active 3433071 Problem Essential hypertension I10 Active 82265738 Problem Hypercholesterolemia E78.0 Active 59108357 Problem VANESSA (obstructive sleep apnea) G47.33 Active 27490053 Problem Other chronic pain G89.29 Active 47014227 ALLERGIES Substance Reaction Event Type Date Status Sinemet Unknown Drug Allergy Jun, Active Lipitor Unknown Drug Allergy Jun, Active ENCOUNTERS Encounter Location Date Diagnosis [place] [id number] [place] [address] 12123- 4977 Jun, Hypertension, benign I10 [facility] [id number] [place] [address] 99697- 8885 Jun, Other chronic gastritis without hemorrhage K29.50 and Hypertension, benign I10 [facility] [id number] [place] [address] 41637- 4106 Apr, Encounter for immunization Z23 [facility] [id number] [place] [address] 11191- 0910 Mar, [facility] [id number] [place] [address] 64384- 2168 Jan, Hypertension, benign I10 and Primary insomnia F51.01 [facility] [id number] [place] [address] 25983- 6479 November, Hypertension, benign I10 [facility] [id number] [place] [address] 55854- 1940 13 Oct, 2017 [place] [id number] [place] [address] 81696- 9069 Sep, Nocturnal polyuria R35.1 and Dysuria R30.0 [facility] [id number] [place] [address] 81064- 0197 Jun, Hypertension, benign I10 [facility] [address] 87600- 9924 Apr, Encounter for immunization Z23 [facility] [address] 99244- 3531 Jan, Hypertension, benign I10 and VANESSA (obstructive sleep apnea) G47.33 [place] [id number] [place] [address] 29080- 4763 Jan, Hypertension, benign I10 and VANESSA (obstructive sleep apnea) G47.33 [place] [id number] [place] [address] 47402- 5110 Jan, [facility] [address] 69526- 0526 November, Hypertension, benign I10 [place] [id number] [place] [address] 03614- 9078 Aug, [place] [id number] [place] [address] 49116- 1555 Jul, Other chronic pain G89.29 and Pain in left shoulder M25.512 [place] [id number] [place] [address] 19110- 1667 16 Jul, 2016 Other chronic pain G89.29 ; Pain in left shoulder M25.512 and Hypertension, benign I10 [place] [id number] [place] [address] 77298- 4056 16 Jun, 2016 [place] [id number] [place] [address] 63324- 0040 Jun, Hypertension, benign I10 [facility] [id number] [place] [address] 19769- 5481 Apr, Essential hypertension I10 and Pure hypercholesterolemia E78.00 [facility] [id number] [place] [address] 89617- 1340 Feb, [facility] [address] 65264- 3063 Jan, [facility] [id number] [place] [address] 97622- 8170 Jan, [facility] [address] 70793- 3692 Jan, Benign non-nodular prostatic hyperplasia with lower urinary tract symptoms N40.1 and Hypertension, benign I10 [place] [id number] [place] [address] 34655- 3682 Jan, Benign non-nodular prostatic hyperplasia with lower urinary tract symptoms N40.1 and Hypertension, benign I10 [facility] [id number] [place] [address] 20278- 8233 Dec, [facility] [id number] [place] [address] 84914 -5039 November, Contact dermatitis, unspecified contact dermatitis type, unspecified trigger L25.9 [facility] [id number] [place] [address] 65990- 3457 Oct, [facility] [id number] [place] [address] 00654- 3411 07 Oct, 2015 Hypertension, benign I10 [facility] [id number] [place] [address] 42901- 2320 Sep, [facility] [id number] [place] [address] 78972 -4782 16 Aug, 2015 Left shoulder pain M25.512 [facility] [id number] [place] [address] 53193- 9678 Jul, Hypertension, benign I10 [facility] [id number] [place] [address] 09434- 7957 Jul, Hypertension 401.9 [facility] [id number] [place] [address] 22035- 3495 May, Hypertension, benign I10 ; Anxiety F41.9 and Hypercholesterolemia E78.0 [facility] [id number] [place] [address] 79630- 2436 May, [facility] [id number] [place] [address] 81439- 0982 Apr, [facility] [id number] [place] [address] 10088- 3901 Apr, Hypertension, benign I10 [facility] [id number] [place] [address] 08762- 4274 Apr, Hypertension, benign I10 [facility] [id number] [place] [address] 40969- 6920 Apr, Encounter for immunization Z23 [facility] [id number] [place] [address] 03403- 7415 Mar, Hypertension 401.9 [facility] [id number] [place] [address] 17122- 0686 Feb, HTN (hypertension) 401.9 [facility] [id number] [place] [address] 37673- 3811 Jan, HTN (hypertension) 401.9 [facility] [id number] [place] [address] 82493- 3206 Dec, Hypertension 401.9 [facility] [id number] [place] [address] 67602- 5629 November, Hypertension 401.9 [facility] [id number] [place] [address] 68917- 3050 November, [facility] [address] [facility] [id number] [place] [address]- 6582 November, [facility] [place] [facility] [address] [id number] [place] [address]- 7138 November, [facility] [place] [facility] [address] [id number] [place] [address]- 8847 14 Oct, 2014 [facility] [place] [facility] [address] [id number] [place] [address]- 6919 Oct, [facility] [place] [facility] [address] [id number] [place] [address]- 7686 24 Sep, 2014 [facility] [place] [facility] [address] [id number] [place] [address]- 7679 24 Sep, 2014 [facility] [place] [facility] [address] [id number] [place] [address]- 1886 Sep, [facility] [place] [facility] [address] [id number] [place] [address]- 4846 18 Sep, 2014 [facility] [place] [facility] [address] [id number] [place] [address]- 6715 Sep, [facility] [place] [facility] [address] [id number] [place] [address]- 4935 Sep, [facility] [place] [facility] [address] [id number] [place] [address]- 6568 Sep, [facility] [place] [facility] [address] [id number] [place] [address]- 7484 Sep, [facility] [place] [facility] [address] [id number] [place] [address]- 6434 13 Aug, 2014 [facility] [place] [facility] [address] [id number] [place] [address]- 0037 13 Aug, 2014 [facility] [place] [facility] [address] [id number] [place] [address]- 1205 13 Aug, 2014 [facility] [place] [facility] [address] [id number] [place] [address]- 4768 Aug, [facility] [place] [facility] [address] [id number] [place] [address]- 1224 Aug, [facility] [place] [facility] [address] [id number] [place] 3486 Aug, [facility] [place] [facility] [address] [id number] [place] [address]- 2700 Jul, [facility] [place] [facility] [address] [id number] [place] [address]- 4142 Jul, [facility] [place] [facility] [address] [id number] [place] [address]- 7037 Jul, [facility] [place] [facility] [address] [id number] [place] [address]- 1718 Jul, [facility] [place] [facility] [address] [id number] [place] [address]- 4759 Jul, [facility] [place] [facility] [address] [id number] [place] [address]- 4522 Jul, [facility] [place] [facility] [address] [id number] [place] [address]- 9429 Jul, [facility] [place] [facility] [address] [id number] [place] [address]- 9677 Jul, [facility] [place] [facility] [address] [id number] [place] [address]- 5500 Jul, [facility] [place] [facility] [address] [id number] [place] [address]- 6997 Jul, [facility] [place] [facility] [address] [id number] [place] [address]- 5848 Jun, [facility] [place] [facility] [address] [id number] [place] [address]- 2255 Jun, [facility] [place] [facility] [address] [id number] [place] [address]- 3259 May, [facility] [place] [facility] [address] [id number] [place] [address]- 4286 May, [facility] [place] [facility] [address] [id number] [place] [address]- 0076 Apr, [facility] [place] [facility] [address] [id number] [place] 0676 Apr, [facility] [place] [facility] [address] [id number] [place] [address]- 2903 Apr, [facility] [place] [facility] [address] [id number] [place] [address]- 9079 Apr, [facility] [place] [facility] [address] [id number] [place] [address]- 5008 Apr, [facility] [place] [facility] [address] [id number] [place] [address]- 3498 Apr, [facility] [place] [facility] [address] [id number] [place] [address]- 5910 Apr, [facility] [place] [facility] [address] [id number] [place] [address]- 4141 Apr, [facility] [place] [facility] [address] [id number] [place] [address]- 4883 Apr, [facility] [place] [facility] [address] [id number] [place] [address]- 5983 Apr, [facility] [place] [facility] [address] [id number] [place] [address]- 0755 Mar, [facility] [place] [facility] [address] [id number] [place] [address]- 5874 Mar, [facility] [place] [facility] [address] [id number] [place] [address]- 4635 November, [facility] [place] [facility] [address] [id number] [place] [address]- 1029 November, [facility] [place] [facility] [address] [id number] [place] [address]- 9535 Sep, [facility] [address] [id number] [place] [address]- 4700 Sep, [facility] [place] [facility] [address] [id number] [place] [address]- 4607 Jun, [facility] [place] [facility] [address] [id number] [place] [address]- 8217 Jun, [facility] [place] [facility] [address] [id number] [place] [address]- 1079 Jun, [facility] [place] [facility] [address] [id number] [place] [address]- 3182 Jun, [facility] [place] [facility] [address] [id number] [place] [address]- 5948 Apr, [facility] [place] [facility] [address] [id number] [place] [address]- 6926 Mar, [facility] [place] [facility] [address] [id number] [place] [address]- 4691 Mar, [facility] [place] [facility] [address] [id number] [place] [address]- 6530 Mar, [facility] [place] [facility] [address] [id number] [place] [address]- 0397 Feb, [facility] [place] [facility] [address] [id number] [place] [address]- 7146 Jan, [facility] [place] [facility] [address] [id number] [place] [address]- 3050 November, [facility] [place] [facility] [address] [id number] [place] [address]- 2541 November, [facility] [place] [facility] [address] [id number] [place] [address]- 0776 Oct, [facility] [place] [facility] [address] [id number] [place] [address]- 8286 Aug, [facility] [place] [facility] [address] [id number] [place] [address]- 3822 10 Jun, 2012 [facility] [place] [facility] [address] [id number] [place] [address]- 9238 Jun, [facility] [place] [facility] [address] [id number] [place] [address]- 6501 May, [facility] [place] [facility] [address] [id number] [place] [address]- 2782 May, [facility] [place] [facility] [address] [id number] [place] [address]- 8754 May, [facility] [place] [facility] [id number] [place] [address], [place] [address]- 6725 May, [facility] [place] [facility] [address] [id number] [place] [address]- 1774 May, [facility] [place] [facility] [address] [id number] [place] [address]- 9427 May, [facility] [place] [facility] [address] [id number] [place] [address]- 9492 May, [facility] [place] [facility] [address] [id number] [place] [address]- 9468 May, [facility] [place] [facility] [address] [facility] [id number] [place] [address]- 9391 May, [facility] [place] [facility] [address] [id number] [place] [address]- 5554 May, [facility] [place] [facility] [address] [id number] [place] [address]- 4999 Apr, [facility] [place] [facility] [address] [id number] [place] [address]- 8154 24 Mar, 2012 [facility] [place] [facility] [address] [id number] [place] [address]- 5541 18 Mar, 2012 [facility] [place] [facility] [address] [id number] [place] [address]- 3630 Feb, [facility] [place] [facility] [address] [id number] [place] [address]- 7932 08 Nov, 2011 [facility] [place] [facility] [address] [id number] [place] [address]- 6187 26 Sep, 2011 [facility] [place] [facility] [address] [id number] [place] [address]- 6226 14 Sep, 2011 [facility] [place] [facility] [address] [id number] [place] [address]- 2854 12 Sep, 2011 [facility] [place] [facility] [address] [id number] [place] [address]- 4872 07 Sep, 2011 [facility] [place] [facility] [address] [id number] [place] [address]- 2715 Jul, [facility] [place] [facility] [address] [id number] [place] [address]- 7734 Jun, [facility] [place] [facility] [address] [id number] [place] [address]- 2498 Jun, [facility] [place] [facility] [address] [id number] [place] [address]- 8342 Jun, [facility] [place] [facility] [address] [id number] [place] [address]- 7997 Apr, [facility] [place] [facility] [address] [id number] [place] [address]- 1339 Jan, [facility] [place] [facility] [address] [id number] [place] [address]- 8049 15 Dec, 2010 [facility] [place] [facility] [address] [id number] [place] [address]- 0943 15 Aug, 2010 [facility] [place] [facility] [address] [id number] [place] [address]- 1619 May, [facility] [place] [facility] [address] [id number] [place] [address]- 6211 15 May, 2010 [facility] [place] [facility] [address] [id number] [place] [address]- 3707 May, [facility] [address] [facility] [id number] [place] [address]- 0451 May, [facility] [address] [facility] [id number] [place] [address]- 4976 Apr, [facility] [address] [facility] [id number] [place] [address]- 4965 Aug, [facility] [address] [facility] [id number] [place] [address]- 2801 Jul, [facility] [address] [facility] [id number] [place] [address]- 2810 Dec, IMMUNIZATIONS No Known Immunizations SOCIAL HISTORY Never Assessed REASON FOR VISIT Hypertension, - Skip KRAFT PLAN OF CARE VITAL SIGNS Height 70 in 2018-06-17 Weight 200 lbs 2018-06-17 Temperature 97.9 degrees Fahrenheit 2018-06-17 Heart Rate 66 bpm 2018-06-17 Respiratory Rate 18 2018-06-17 Oximetry 98 % 2018-06-17 BMI 28.69 kg/m2 2018-06-17 Blood pressure systolic 138 mmHg 2018-06-17 Blood pressure diastolic 70 mmHg 2018-06-17 MEDICATIONS Medication Instructions Dosage Frequency Start Date End Date Duration Status Amlodipine Besylate 10 MG TAKE ONE TABLET BY MOUTH ONCE DAILY (NEEDS APPOINTMENT FOR FURTHER REFILLS) 30 Active Hydrochlorothiazide 12.5 MG Orally Once a day 1 capsule in the morning 24h Sep, 30 day(s) Not-Taking Valium 10 mg Orally Twice a day 1 tablet as needed 12h Aug, 28 days Active Atenolol 100 MG TAKE ONE TABLET BY MOUTH ONCE DAILY (NEEDS APPOINTMENT FOR FURTHER REFILLS) 30 Active Doxepin HCl 25 MG Orally Once a day 2 capsule at bedtime 24h Jan, Not-Taking Fish Oil 1 gram 3 capsule by Oral route 1 time per day November, Not-Taking RESULTS No Results PROCEDURES Procedure Date Ordered Result Body Site [facility] VISIT ESTABLISHED PATIENT Jun 17, 2018 INSTRUCTIONS MEDICATIONS ADMINISTERED No Known Medications MEDICAL (GENERAL) HISTORY Type Description Date Medical History hypertension Medical History hereditary spherocytosis Medical History hyperlipidemia Medical History insomnia Medical History testicular cancer Medical History restless leg syndrome Medical History Gout Medical History allergic rhinitis Medical History anxiety Surgical History orchiectomy with radiation 1983 Surgical History hernia repair 12/2017 Hospitalization History surgery
--- OUTSIDE RECORDS SUMMARY | 2018-09-28 08:55 | XMS REPORT ---
Author Author MELI MELARA Organization [facility] Address [address] [place] [address] Care Team Providers Care [employer] Process Technician Name Role Phone MELI MELARA Unavailable PROBLEMS Type Condition ICD9-CM Code [id number] Code Onset Dates Condition Status SNOMED Code Problem Primary insomnia F51.01 Active 4731988 Problem VANESSA (obstructive sleep apnea) G47.33 Active 75959975 Problem Hypercholesterolemia E78.0 Active 98583032 Problem Hypertension, benign I10 Active 83942865 Problem Other chronic pain G89.29 Active 01438000 Problem Essential hypertension I10 Active 24930382 ALLERGIES No Information ENCOUNTERS Encounter Location Date Diagnosis [place] [address] [address] Apr, Encounter for immunization Z23 [facility] [address] [address] Mar, [place] [address] [address]- [address] Jan, Hypertension, benign I10 and Primary insomnia F51.01 [place] [address] [address] [place] [id number] [place] [address] 20982- 6746 November, Hypertension, benign I10 [facility] [address] [address] Oct, [place] [address] [address] Sep, Nocturnal polyuria R35.1 and Dysuria R30.0 [place] [address] [address]- [address] Jun, Hypertension, benign I10 [place] [address] [address]- [address] 18 Apr, 2017 Encounter for immunization Z23 [facility] [address] [place] [id number] [place] [address] 226231- 0776 Jan, Hypertension, benign I10 and VANESSA (obstructive sleep apnea) G47.33 [facility] [address] [place] [id number] [place] [address] 89438- 9641 Jan, Hypertension, benign I10 and VANESSA (obstructive sleep apnea) G47.33 [facility] [address] [place] [id number] [place] [address] 44038- 9674 Jan, [place] [address] 95[address]- 39[address] November, Hypertension, benign I10 [place] [address] [place] [id number] [place] [address] 11532- 2238 Aug, [place] [address] 36[address]- [address] Jul, Other chronic pain G89.29 and Pain in left shoulder M25.512 [place] [address] [address] [place] [id number] [place] [address] 00444- 2870 Jul, Other chronic pain G89.29 ; Pain in left shoulder M25.512 and Hypertension, benign I10 [place] [address] [place] [id number] [place] [address] 95729- 8297 Jun, [place] [address] [place] [id number] [place] [address] 66946- 7327 Jun, Hypertension, benign I10 [facility] [address] [place] [id number] [place] [address] 69741- 7070 Apr, Essential hypertension I10 and Pure hypercholesterolemia E78.00 [facility] [address] [place] [id number] [place] [address] 16845- 6799 Feb, [place] [address] [place] [id number] [place] [address] 89735- 2562 Jan, [place] [address] [place] [id number] [place] [address] 49079- 3095 Jan, [facility] [address] [place] [id number] [place] [address] 01695- 7389 Jan, Benign non-nodular prostatic hyperplasia with lower urinary tract symptoms N40.1 and Hypertension, benign I10 [facility] [address] [place] [id number] [place] [address] 55076- 8221 Jan, Benign non-nodular prostatic hyperplasia with lower urinary tract symptoms N40.1 and Hypertension, benign I10 [place] [address] [place] [id number] [place] [address] 15251- 9396 Dec, [facility] [place] [address] [place] [id number] [place] [address] 57427 -3818 November, Contact dermatitis, unspecified contact dermatitis type, unspecified trigger L25.9 [place] [address] [address] [place] [id number] [place] [address] 44013- 1498 Oct, [facility] [address] [place] [id number] [place] [address] 25463- 6759 Oct, Hypertension, benign I10 [place] [address] [address] [place] [id number] [place] [address] 89036- 6107 Sep, [facility] [address] [place] [id number] [place] [address] 27354 -7872 Aug, Left shoulder pain M25.512 [facility] [address] [place] [id number] [place] [address] 87888- 3770 Jul, Hypertension, benign I10 [facility] [address] [place] [id number] [place] [address] 87721- 5240 Jul, Hypertension 401.9 [place] [address] [place] [id number] [place] [address] 77825- 9326 May, Hypertension, benign I10 ; Anxiety F41.9 and Hypercholesterolemia E78.0 [place] [address] [place] [id number] [place] [address] 06734- 6155 May, [facility] [address] [address]- [address] Apr, [facility] [id number] [place] [address] 701169- 3339 Apr, Hypertension, benign I10 [facility] [address] [place] [id number] [place] [address] 89129- 7632 Apr, Hypertension, benign I10 [facility] [address] [place] [id number] [place] [address] 56304- 1752 Apr, Encounter for immunization Z23 [facility] [address] [place] [id number] [place] [address] 205463- 2803 Mar, Hypertension 401.9 [facility] [address] [place] [id number] [place] [address] 38619- 7302 Feb, HTN (hypertension) 401.9 [facility] [id number] [place] [address] 82035- 5989 Jan, HTN (hypertension) 401.9 [facility] [id number] [place] [address] 77265- 3486 Dec, Hypertension 401.9 [facility] [id number] [place] [address] 11581- 4654 November, Hypertension 401.9 [facility] [address] [place] [address]- 5839 November, [facility] [address] [place] [address]- 0742 November, [facility] [id number] [address]- 9200 November, [facility] [id number] [place] [address]- 8461 14 Oct, 2014 [facility] [address] [place] [address]- 4509 Oct, [facility] [place] [facility] [address] [id number] [place] [address]- 4171 Sep, [facility] [place] [facility] [address] [id number] [place] [address]- 1274 Sep, [facility] [place] [facility] [address] [id number] [place] [address]27 Sep, [facility] [place] [facility] [address] [id number] [place] [address]- 5489 Sep, [facility] [place] [facility] [address] [id number] [place] [address]- 0914 Sep, [facility] [place] [facility] [address] [id number] [place] [address]- 0792 Sep, [facility] [place] [facility] [address] [id number] [place] [address]- 3436 Sep, [facility] [place] [facility] [address] [id number] [place] [address]- 4151 Sep, [facility] [place] [facility] [address] [id number] [place] [address]- 4541 Aug, [facility] [place] [facility] [address] [id number] [place] [address]- 6570 Aug, [facility] [place] [facility] [address] [id number] [place] [address]- 7630 Aug, [facility] [place] [facility] [address] [id number] [address]- 7108 Aug, [facility] [place] [facility] [address] [id number] [place] [address]- 7401 Aug, [facility] [place] [facility] [address] [id number] [place] [address]- 8520 Aug, [facility] [place] [facility] [address] [id number] [place] [address]- 2568 Jul, [facility] [place] [facility] [address] [id number] [place] [address]- 7622 Jul, [facility] [place] [facility] [address] [id number] [place] [address]- 6738 Jul, [facility] [place] [facility] [address] [id number] [place] [address]- 3682 Jul, [facility] [place] [facility] [address] [id number] [place] [address]- 8625 Jul, [facility] [place] [facility] [address] [id number] [place] [address]- 0536 Jul, [facility] [place] [facility] [address] [id number] [place] [address]- 4669 Jul, [facility] [place] [facility] [address] [id number] [place] [address]- 9684 Jul, [facility] [place] [facility] [address] [id number] [place] [address]- 9392 Jul, [facility] [place] [facility] [address] [id number] [place] [address]- 2752 Jul, [facility] [place] [facility] [address] [id number] [place] [address]- 0899 Jun, [facility] [place] [facility] [address] [facility] [id number] [place] [address]- 7749 Jun, [facility] [place] [facility] [address] [id number] [place] [address]- 0238 May, [facility] [place] [facility] [address] [id number] [place] [address]- 6520 May, [facility] [place] [facility] [address] [id number] [place] [address]- 8821 Apr, [facility] [place] [facility] [address] [id number] [place] [address]- 5062 Apr, [facility] [place] [facility] [address] [id number] [place] [address]46 Apr, [facility] [place] [facility] [address] [id number] [place] [address]- 6578 Apr, [facility] [place] [facility] [address] [id number] [place] [address]- 2595 Apr, [facility] [place] [facility] [address] [id number] [place] [address]- 4575 Apr, [facility] [place] [facility] [address] [id number] [place] [address]- 4024 Apr, [facility] [place] [facility] [address] [id number] [place] [address]- 7351 Apr, [facility] [place] [facility] [address] [id number] [place] [address]- 1275 Apr, [facility] [place] [facility] [address] [id number] [place] [address]- 4987 Apr, [facility] [place] [facility] [address] [id number] [place] [address]- 8900 Mar, [facility] [place] [facility] [address] [id number] [place] [address]- 8863 Mar, [facility] [place] [facility] [address] [id number] [place] [address]- 2977 November, [facility] [place] [facility] [address] [id number] [place] [address]- 7227 November, [facility] [place] [facility] [address] [id number] [place] [address]- 4018 Sep, [facility] [place] [facility] [address] [id number] [place] 3369 Sep, [facility] [place] [facility] [address] [id number] [place] [address]- 6741 Jun, [facility] [place] [facility] [address] [id number] [place] [address]- 5872 Jun, [facility] [place] [facility] [address] [id number] [place] [address]- 9430 Jun, [facility] [address] [id number] [place] [address]- 6052 Jun, [facility] [place] [facility] [address] [id number] [place] [address]- 2546 Apr, [facility] [place] [facility] [address] [id number] [place] [address]- 2546 Mar, [facility] [place] [facility] [address] [id number] [place] [address]- 2546 Mar, [facility] [place] [facility] [address] [id number] [place] [address]- 2546 Mar, [facility] [place] [facility] [address] [id number] [place] [address]- 2546 Feb, [facility] [place] [facility] [address] [id number] [place] [address]- 2546 Jan, [facility] [place] [facility] [address] [id number] [place] [address]- 2546 November, [facility] [address] [id number] [place] [address]- 9826 November, [facility] [place] [facility] [address] [id number] [place] [address]- 2546 Oct, [facility] [place] [facility] [address] [id number] [place] [address]- 3552 Aug, [facility] [place] [facility] [address] [id number] [place] [address]- 2549 Jun, [facility] [place] [facility] [address] [id number] [place] [address]- 2546 Jun, [facility] [place] [facility] [address] [id number] [place] [address]- 4900 May, [facility] [place] [facility] [address] [id number] [place] [address]- 2546 May, [facility] [place] [facility] [address] [id number] [place] [address]- 2304 May, [facility] [address] [id number] [place] [address]- 9528 May, [facility] [place] [facility] [address] [id number] [place] [address]- 3365 May, [facility] [address] [id number] [place] [address]- 2086 May, [facility] [place] [facility] [address] [id number] [place] [address]- 3901 May, [facility] [place] [facility] [address] [id number] [place] [address], [place] 2863 May, [facility] [place] [facility] [address] [id number] [place] [address]- 8314 May, [facility] [place] [facility] [address] [id number] [place] [address]- 3734 May, [facility] [place] [facility] [address] [id number] [place] [address]- 6252 Apr, [facility] [place] [facility] [address] [id number] [place] [address]- 4644 24 Mar, 2012 [facility] [place] [facility] [address] [id number] [place] [address]- 1362 Mar, [facility] [place] [facility] [address] [id number] [place] [address]- 8210 Feb, [facility] [place] [facility] [address] [id number] [place] [address]- 5478 November, [facility] [place] [facility] [address] [id number] [place] [address]- 2721 Sep, [facility] [place] [facility] [address] [id number] [place] [address]- 2334 Sep, [facility] [place] [facility] [address] [id number] [place] [address]- 0306 Sep, [facility] [place] [facility] [address] [id number] [place] [address]- 2433 07 Sep, 2011 [facility] [place] [facility] [address] [id number] [place] [address]- 0180 13 Jul, 2011 [facility] [place] [facility] [address] [id number] [place] [address]- 1482 26 Jun, 2011 [facility] [place] [facility] [address] [id number] [place] [address]- 8660 Jun, [facility] [place] [facility] [address] [id number] [place] [address]- 5845 08 Jun, 2011 [facility] [place] [facility] [address] [id number] [place] [address]- 2556 Apr, [facility] [place] [facility] [address] [id number] [place] [address]- 5368 Jan, [facility] [place] [facility] [address] [id number] [place] [address]- 8948 15 Dec, 2010 [facility] [place] [facility] [address] [id number] [place] [address]- 6086 15 Aug, 2010 [facility] [place] [facility] [address] [id number], [place] [address]- 1767 24 May, 2010 [facility] [place] [facility] [address] [id number], [place] [address]- 5471 15 May, 2010 [facility] [place] [facility] [address] [id number], [place] [address]- 3622 11 May, 2010 [facility] [place] [facility] [address] [id number] [place] [address]- 8655 09 May, 2010 [facility] [place] [facility] [address] [id number] [place] [address]- 1306 27 Apr, 2010 [facility] [place] [facility] [address] [id number], [place] [address]- 0178 11 Aug, 2009 [facility] [place] [facility] [address] [id number] [place] [address]- 0986 Jul, [facility] [address] [facility] [id number], [place] [address]- 4868 Dec, IMMUNIZATIONS Vaccine Route Administration Date Status FLULAVAL QUAD 0.5ML (6 MO & UP) 2018 IM Intramuscular Apr 27, 2018 Administered SOCIAL HISTORY Never Assessed REASON FOR VISIT Flu shot Zoran Lucero MA PLAN OF CARE VITAL SIGNS MEDICATIONS Medication Instructions Dosage Frequency Start Date End Date Duration Status Doxepin HCl 25 MG Orally Once a day 2 capsule at bedtime 24h Jan, Active Atenolol 100 MG TAKE ONE TABLET BY MOUTH ONCE DAILY (NEEDS APPOINTMENT FOR FURTHER REFILLS) 30 Active Hydrochlorothiazide 12.5 MG Orally Once a day 1 capsule in the morning 24h Sep, 30 day(s) Not-Taking Amlodipine Besylate 10 MG TAKE ONE TABLET BY MOUTH ONCE DAILY (NEEDS APPOINTMENT FOR FURTHER REFILLS) 30 Active Valium 10 mg Orally Twice a day 1 tablet as needed 12h Aug, 28 days Active Fish Oil 1 gram 3 capsule by Oral route 1 time per day November, Not-Taking RESULTS No Results PROCEDURES Procedure Date Ordered Result Body Site FLULAVAL QUAD 0.5ML (6 MO & UP) 2018 Apr 27, 2018 ADMN FLU VAC NO FEE SCHED SAME DAY Apr 27, 2018 SINGLE IMMUNIZATION ADMIN Apr 27, 2018 INSTRUCTIONS MEDICATIONS ADMINISTERED No Known Medications MEDICAL (GENERAL) HISTORY Type Description Date Medical History hypertension Medical History hereditary spherocytosis Medical History hyperlipidemia Medical History insomnia Medical History testicular cancer Medical History restless leg syndrome Medical History Gout Medical History allergic rhinitis Medical History anxiety Surgical History orchiectomy with radiation 1984 Surgical History hernia repair 12/2017 Hospitalization History surgery
--- OUTSIDE RECORDS SUMMARY | 2018-09-28 08:55 | XMS REPORT ---
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 Name Role Phone MELI MELARA Unavailable PROBLEMS Type Condition ICD9-CM Code [id number] Code Onset Dates Condition Status SNOMED Code Problem Hypertension, benign I10 Active 06400181 Problem Other chronic gastritis without hemorrhage K29.50 Active 1271024 Problem Primary insomnia F51.01 Active 1865007 Problem Essential hypertension I10 Active 32593599 Problem Hypercholesterolemia E78.0 Active 93624445 Problem VANESSA (obstructive sleep apnea) G47.33 Active 23037004 Problem Other chronic pain G89.29 Active [id number] ALLERGIES No Information ENCOUNTERS Encounter Location Date Diagnosis [place] [address] [address] Jun, Hypertension, benign I10 [place] [address] [address]- 6078 Jun, Other chronic gastritis without hemorrhage K29.50 and Hypertension, benign I10 [facility] [address] [place] [id number] [place] [address] 72630- 7096 Apr, Encounter for immunization Z23 [facility] [address] [address]- [address] Mar, [facility] [address] [place] [id number] [place] [address] 38168- 5323 Jan, Hypertension, benign I10 and Primary insomnia F51.01 [facility] [address] [id number] [place] [address] 16388- 1080 November, Hypertension, benign I10 [facility] [address] [id number] [place] [address] 57988- 8527 Oct, [place] [address] [place] [id number] [place] [address] 95177- 5763 Sep, Nocturnal polyuria R35.1 and Dysuria R30.0 [place] [address] [place] [id number] [place] [address] 30982- 5454 Jun, Hypertension, benign I10 [place] [address] 7[address]94- 2024 Apr, Encounter for immunization Z23 [place] [address] 39221- 4192 Jan, Hypertension, benign I10 and VANESSA (obstructive sleep apnea) G47.33 [place] [address] 59966- 2821 Jan, Hypertension, benign I10 and VANESSA (obstructive sleep apnea) G47.33 [place] [address] 60636- 4805 Jan, [place] [address] 97987- 8667 November, Hypertension, benign I10 [place] [address] [place] [id number] [place] [address] 70729- 9049 15 Aug, 2016 [place] [address] [place] [id number] [place] [address] 58887- 7737 Jul, Other chronic pain G89.29 and Pain in left shoulder M25.512 [place] [address] [place] [id number] [place] [address] 57524- 6089 16 Jul, 2016 Other chronic pain G89.29 ; Pain in left shoulder M25.512 and Hypertension, benign I10 [place] [address] [place] [id number] [place] [address] 43688- 2099 16 Jun, 2016 [place] [address] [place] [id number] [place] [address] 84134- 7119 Jun, Hypertension, benign I10 [place] [address] [place] [address] 1363 Apr, Essential hypertension I10 and Pure hypercholesterolemia E78.00 [facility] [address] [id number] [place] [address] 44854- 6310 Feb, [facility] [address] [place] [id number] [place] [address] 23236- 9687 Jan, [facility] [address] 67344- 6204 Jan, [facility] [address] [id number] [place] [address] 03841- 0100 Jan, Benign non-nodular prostatic hyperplasia with lower urinary tract symptoms N40.1 and Hypertension, benign I10 [facility] [address] [place] [id number] [place] [address] 80455- 4709 14 Jan, 2016 Benign non-nodular prostatic hyperplasia with lower urinary tract symptoms N40.1 and Hypertension, benign I10 [facility] [address] [place] [id number] [place] [address] 81413- 3180 Dec, [facility] [address] [place] [id number] [place] [address] 57323 -7903 November, Contact dermatitis, unspecified contact dermatitis type, unspecified trigger L25.9 [facility] [address] [place] [id number] [place] [address] 35178- 8675 15 Oct, 2015 [facility] [address] [place] [id number] [place] [address] 26175- 7004 07 Oct, 2015 Hypertension, benign I10 [facility] [address] [place] [id number] [place] [address] 49742- 3249 Sep, [facility] [address] [id number] [place] [address] 89119 -6540 16 Aug, 2015 Left shoulder pain M25.512 [facility] [address] [place] [id number] [place] [address] 78152- 8270 Jul, Hypertension, benign I10 [facility] [address] [place] [id number] [place] [address] 21581- 7179 Jul, Hypertension 401.9 [facility] [address] [place] [address] [id number] [place] [address] 97834- 8784 May, Hypertension, benign I10 ; Anxiety F41.9 and Hypercholesterolemia E78.0 [facility] [address] [place] [id number] [place] [address] 68879- 2023 May, [facility] [address] [place] [id number] [place] [address] 87237- 7504 Apr, [facility] [address] [place] [id number] [place] [address] 12690- 5385 Apr, Hypertension, benign I10 [facility] [address] [place] [id number] [place] [address] 40358- 0488 Apr, Hypertension, benign I10 [facility] [address] [place] [id number] [place] [address] 10190- 9029 Apr, Encounter for immunization Z23 [facility] [address] [place] [id number] [place] [address] 47071- 2816 Mar, Hypertension 401.9 [facility] [address] [place] [id number] [place] [address] 37517- 2812 Feb, HTN (hypertension) 401.9 [facility] [id number] [place] [address] 05271- 1769 Jan, HTN (hypertension) 401.9 [facility] [address] [place] [id number] [place] [address] 38739- 1873 Dec, Hypertension 401.9 [facility] [address] [place] [address] [id number] [place] [address] 28658- 3236 November, Hypertension 401.9 [facility] [address] [place] [address] [id number] [place] [address] 27410- 7446 November, [facility] [address] [id number] [place] [address] 72615- 0737 November, [facility] [place] [facility] [address] [id number] [place] [address]- 3919 November, [facility] [place] [facility] [address] [id number] [place] [address]- 0323 14 Oct, 2014 [facility] [place] [facility] [address] [id number] [place] [address]- 7596 Oct, [facility] [place] [facility] [address] [id number] [place] [address]- 2263 Sep, [facility] [place] [facility] [address] [id number] [place] [address]- 3044 24 Sep, 2014 [facility] [place] [facility] [address] [id number] [place] [address]- 0346 Sep, [facility] [place] [facility] [address] [id number] [place] [address]- 5804 Sep, [facility] [place] [facility] [address] [id number] [place] [address]- 8172 Sep, [facility] [place] [facility] [address] [id number] [place] [address]- 4138 Sep, [facility] [place] [facility] [address] [id number] [place] [address]- 2347 Sep, [facility] [place] [facility] [address] [id number] [place] [address]- 7964 Sep, [facility] [place] [facility] [address] [id number] [place] [address]- 4810 Aug, [facility] [place] [facility] [address] [id number] [place] [address]- 7664 Aug, [facility] [place] [facility] [address] [id number] [place] [address]- 0595 Aug, [facility] [place] [facility] [address] [id number] [place] [address]- 7069 Aug, [facility] [place] [facility] [address] [id number] [place] [address]- 0170 Aug, [facility] [place] [facility] [address] [id number] [place] [address]- 0647 Aug, [facility] [place] [facility] [address] [id number] [place] [address]- 7158 Jul, [facility] [place] [facility] [address] [id number] [place] [address]- 9487 Jul, [facility] [place] [facility] [address] [id number] [place] [address]- 6214 Jul, [facility] [place] [facility] [address] [id number] [place] [address]- 7862 Jul, [facility] [place] [facility] [address] [id number] [place] [address]- 3096 Jul, [facility] [place] [facility] [address] [id number] [place] [address]- 3082 Jul, [facility] [place] [facility] [address] [id number] [place] [address]- 7065 Jul, [facility] [place] [facility] [address] [id number] [place] [address]- 9643 Jul, [facility] [place] [facility] [address] [facility] [id number] [place] [address]- 1781 Jul, [facility] [place] [facility] [address] [id number] [place] [address]- 8164 Jul, [facility] [place] [facility] [address] [id number] [place] [address]- 0709 Jun, [facility] [place] [facility] [address] [id number] [place] [address]- 5913 Jun, [facility] [place] [facility] [address] [id number] [place] [address]- 3954 May, [facility] [place] [facility] [address] [id number] [place] 4203 May, [facility] [place] [facility] [address] [id number] [place] [address]- 0084 Apr, [facility] [place] [facility] [address] [id number] [place] [address]- 0376 Apr, [facility] [place] [facility] [address] [id number] [place] [address]- 2570 Apr, [facility] [place] [facility] [address] [id number] [place] [address]- 6557 Apr, [facility] [place] [facility] [address] [id number] [place] [address]- 0992 Apr, [facility] [place] [facility] [address] [id number] [place] [address]- 6167 Apr, [facility] [place] [facility] [address] [id number] [place] [address]- 7235 Apr, [facility] [place] [facility] [address] [id number] [place] [address]- 9102 Apr, [facility] [place] [facility] [address] [id number] [place] [address]- 5649 Apr, [facility] [place] [facility] [address] [id number] [place] [address]- 4587 Apr, [facility] [place] [facility] [address] [id number] [place] [address]- 1698 Mar, [facility] [place] [facility] [address] [id number] [place] [address]- 5697 Mar, [facility] [place] [facility] [address] [id number] [place] [address]- 9226 November, [facility] [place] [facility] [address] [id number] [place] [address]- 5928 November, [facility] [place] [facility] [address] [id number] [place] [address]- 4669 Sep, [facility] [place] [facility] [address] [id number] [place] [address]- 2546 Sep, [facility] [address] [id number] [place] [address]- 0120 Jun, [facility] [place] [facility] [address] [id number] [place] [address]- 7156 Jun, [facility] [place] [facility] [address] [id number] [place] [address]- 2549 Jun, [facility] [place] [facility] [address] [id number] [place] [address]- 8836 Jun, [facility] [place] [facility] [address] [id number] [place] [address]- 6406 Apr, [facility] [place] [facility] [address] [id number] [place] [address]- 7802 Mar, [facility] [place] [facility] [address] [id number] [place] [address]- 0250 Mar, [facility] [place] [facility] [address] [id number] [place] [address]- 5592 Mar, [facility] [place] [facility] [address] [id number] [place] [address]- 0361 Feb, [facility] [place] [facility] [address] [id number] [place] [address] 2541 Jan, [facility] [place] [facility] [address] [id number], [place] [address]- 1204 November, [facility] [place] [facility] [address] [id number], [place] [address]- 2544 November, [facility] [place] [facility] [address] [id number] [place] [address]- 254 Oct, [facility] [place] [facility] [address] [id number] [place] [address] 2546 Aug, [facility] [place] [facility] [address] [id number] [place] [address]- 2546 Jun, [facility] [place] [facility] [address] [id number] [place] [address]- 7559 Jun, [facility] [place] [facility] [address] [id number] [place] [address]- 6518 May, [facility] [place] [facility] [address] [id number] [place] [address]- 5149 May, [facility] [place] [facility] [address] [id number] [place] [address]- 5403 May, [facility] [place] [facility] [address] [id number] [place] [address]- 7163 May, [facility] [place] [facility] [address] [id number] [place] [address]- 6242 May, [facility] [place] [facility] [address] [id number] [place] [address]- 4582 May, [facility] [place] [facility] [address] [id number] [place] [address]- 7928 May, [facility] [place] [facility] [address] [id number] [place] [address]- 0292 May, [facility] [place] [facility] [address] [id number] [place] [address]- 0140 May, [facility] [place] [facility] [address] [id number] [place] [address]- 2206 May, [facility] [place] [facility] [address] [id number] [place] [address]- 0716 Apr, [facility] [place] [facility] [address] [id number] [place] [address]- 7953 Mar, [facility] [place] [facility] [address] [id number] [place] [address]- 8641 Mar, [facility] [place] [facility] [address] [id number] [place] [address]- 4836 Feb, [facility] [place] [facility] [address] [id number] [place] [address]- 1314 November, [facility] [address] [id number] [place] [address]- 1604 26 Sep, 2011 [facility] [place] [facility] [address] [id number] [place] [address]- 1115 14 Sep, 2011 [facility] [place] [facility] [address] [id number] [place] [address]- 9756 12 Sep, 2011 [facility] [place] [facility] [address] [id number] [place] [address]- 9821 07 Sep, 2011 [facility] [place] [facility] [address] [id number] [place] [address]- 3545 13 Jul, 2011 [facility] [place] [facility] [address] [id number] [place] [address]- 6682 Jun, [facility] [place] [facility] [address] [id number] [place] [address]- 5597 Jun, [facility] [place] [facility] [address] [id number] [place] [address]- 9906 Jun, [facility] [place] [facility] [address] [id number] [place] [address]- 0726 Apr, [facility] [place] [facility] [address] [id number] [place] [address]- 7191 Jan, [facility] [place] [facility] [address] [id number] [place] [address]- 4892 15 Dec, 2010 [facility] [place] [facility] [address] [id number], [place] [address]- 3245 15 Aug, 2010 [facility] [place] [facility] [address] [id number] [place] [address]- 9721 24 May, 2010 [facility] [place] [facility] [address] [id number] [place] [address]- 1770 15 May, 2010 [facility] [place] [facility] [address] [id number] [place] [address]- 2925 May, [facility] [place] [facility] [address] [facility] [id number] [place] [address]- 2546 May, [facility] [address] [id number] [address]- 5846 Apr, [facility] [address] [id number] [address] 2546 Aug, [facility] [address] [facility] [id number], [place] [address] 2546 Jul, [facility] [address] [id number] [address]- 1636 Dec, IMMUNIZATIONS No Known Immunizations SOCIAL HISTORY Never Assessed REASON FOR VISIT Lab (walk-in) PLAN OF CARE Activity Details Pending Test LIPID PANEL Pending Test CMP Pending Test CBC VITAL SIGNS MEDICATIONS Unknown Medications RESULTS No Results PROCEDURES Procedure Date Ordered Result Body Site LAB NOT BILLED BY [facility] Jun 18, 2018 INSTRUCTIONS MEDICATIONS ADMINISTERED No Known Medications [...]
--- OUTSIDE RECORDS SUMMARY | 2018-09-28 08:56 | XMS REPORT ---
Author Author MELI MELARA Organization [facility] Address [address] [place] [address] Care Team Providers Care Resident Services Manager Name Role Phone MELI MELARA Unavailable PROBLEMS Type Condition ICD9-CM Code GXI73-AE Code Onset Dates Condition Status SNOMED Code Problem Primary insomnia F51.01 Active 9477806 Problem VANESSA (obstructive sleep apnea) G47.33 Active 32203278 Problem Hypercholesterolemia E78.0 Active 17014971 Problem Hypertension, benign I10 Active 25870351 Problem Other chronic pain G89.29 Active 72137520 Problem Essential hypertension I10 Active 44708645 ALLERGIES No Information ENCOUNTERS Encounter Location Date Diagnosis [place] [address] [address] Mar, [place] [address] [address] Jan, Hypertension, benign I10 and Primary insomnia F51.01 [place] [address] 0[address]47- 7035 November, Hypertension, benign I10 [place] [address] [place] [id number] [place] [address] 90209- 3315 Oct, [place] [address] 43[address]- [address] Sep, Nocturnal polyuria R35.1 and Dysuria R30.0 [place] [address] [address]- 0752 Jun, Hypertension, benign I10 [place] [address] [address]28- 4731 18 Apr, 2017 Encounter for immunization Z23 [place] [address] 39274- 6427 Jan, Hypertension, benign I10 and VANESSA (obstructive sleep apnea) G47.33 [place] [address] [place] [id number] [place] [id number] Jan, Hypertension, benign I10 and VANESSA (obstructive sleep apnea) G47.33 [place] [id number] [place] [address] 27343- 1720 Jan, [place] [address] [place] [id number] [place] [address] 06206- 0448 November, Hypertension, benign I10 [place] [address] [place] [id number] [place] [address] 04399- 0678 Aug, [place] [address] [place] [id number] [place] [address] 08754- 5089 Jul, Other chronic pain G89.29 and Pain in left shoulder M25.512 [place] [address] [place] [id number] [place] [address] 97761- 4620 Jul, Other chronic pain G89.29 ; Pain in left shoulder M25.512 and Hypertension, benign I10 [place] [id number] [place] [address] 40377- 6311 Jun, [place] [id number] [place] [address] 32320- 5064 Jun, Hypertension, benign I10 [place] [address] [place] [id number] [place] [address] 53644- 0668 Apr, Essential hypertension I10 and Pure hypercholesterolemia E78.00 [place] [address] [place] [id number] [place] [address] 29711- 9961 Feb, [place] [address] [place] [id number] [place] [address] 46041- 6375 Jan, [place] [id number] [place] [address] 56621- 2849 Jan, [place] [address] [place] [id number] [place] [address] 66481- 7703 15 Jan, 2016 Benign non-nodular prostatic hyperplasia with lower urinary tract symptoms N40.1 and Hypertension, benign I10 [facility] [address] [place] [id number] [place] [address] 39338- 9080 14 Jan, 2016 Benign non-nodular prostatic hyperplasia with lower urinary tract symptoms N40.1 and Hypertension, benign I10 [facility] [address] [place] [id number] [place] [address] 77128- 3563 13 Dec, 2015 [facility] [address] [place] [id number] [place] [address] 96338 -7870 November, Contact dermatitis, unspecified contact dermatitis type, unspecified trigger L25.9 [facility] [address] [place] [id number] [place] [address] 32447- 4772 15 Oct, 2015 [place] [address] 38242- 6030 Oct, Hypertension, benign I10 [facility] [address] [place] [id number] [place] [address] 73336- 4646 Sep, [facility] [address] [place] [id number] [place] [address] 21881 -0044 Aug, Left shoulder pain M25.512 [place] [address] [place] [id number] [place] [address] 91849- 8777 Jul, Hypertension, benign I10 [facility] [address] [place] [id number] [place] [address] 82074- 4806 Jul, Hypertension 401.9 [facility] [address] [place] [id number] [place] [address] 58224- 9386 May, Hypertension, benign I10 ; Anxiety F41.9 and Hypercholesterolemia E78.0 [facility] [address] [place] [id number] [place] [address] 01277- 9881 May, [facility] [address] [place] [id number] [place] [address] 06645- 1856 Apr, [facility] [address] [address] 5329 Apr, Hypertension, benign I10 [facility] [address] 4[address] Apr, Hypertension, benign I10 [facility] [address] [address]- 9937 Apr, Encounter for immunization Z23 [facility] [address] [place] [id number] [place] [address] 71633- 5953 Mar, Hypertension 401.9 [facility] [address] [place] [id number] [place] [address] 42368- 7998 Feb, HTN (hypertension) 401.9 [facility] [id number] [place] [address] 17455- 8981 Jan, HTN (hypertension) 401.9 [facility] [id number] [place] [address] 52555- 3855 Dec, Hypertension 401.9 [facility] [id number] [place] [address] 39395- 1587 November, Hypertension 401.9 [facility] [address] [address]- 9149 November, [facility] [address] [address]- 1235 November, [facility] [address] [address] 1600 November, [facility] [id number] [place] [address] 46717- 8185 14 Oct, 2014 [facility] [address] [address]- 5168 Oct, [facility] [address] [address]- 7389 Sep, [facility] [place] [facility] [address] [id number] [place] [address]- 0967 Sep, [facility] [place] [facility] [address] [id number] [place] [address]- 4143 Sep, [facility] [place] [facility] [address] [id number] [place] [address]- 9582 Sep, [facility] [place] [facility] [address] [id number] [place] [address]- 8118 Sep, [facility] [place] [facility] [address] [id number] [place] [address]- 9715 Sep, [facility] [place] [facility] [address] [id number] [place] [address] Sep, [facility] [place] [facility] [address] [facility] [id number] [place] [address]- 4660 Sep, [facility] [place] [facility] [address] [id number] [place] [address]- 1563 Aug, [facility] [place] [facility] [address] [id number] [place] [address]- 0820 Aug, [facility] [place] [facility] [address] [facility] [id number] [place] [address]- 6057 Aug, [facility] [place] [facility] [address] [facility] [id number] [place] [address]- 6578 Aug, [facility] [place] [facility] [address] [id number] [place] [address]- 5587 Aug, [facility] [place] [facility] [address] [id number] [place] [address]- 2133 Aug, [facility] [place] [facility] [address] [id number] [place] [address]- 2843 Jul, [facility] [place] [facility] [address] [id number] [place] [address] Jul, [facility] [place] [facility] [address] [facility] [id number] [address]- 3261 Jul, [facility] [place] [facility] [address] [id number] [place] [address]- 5313 Jul, [facility] [place] [facility] [address] [id number] [place] [address]- 0439 Jul, [facility] [place] [facility] [address] [id number] [place] [address]- 2755 Jul, [facility] [place] [facility] [address] [id number] [place] [address]- 1360 Jul, [facility] [place] [facility] [address] [id number] [place] [address]- 4713 Jul, [facility] [place] [facility] [address] [id number] [place] [address]- 3950 Jul, [facility] [place] [facility] [address] [id number] [place] [address]- 6387 Jul, [facility] [place] [facility] [address] [id number] [place] [address]- 0042 Jun, [facility] [place] [facility] [address] [id number] [place] [address]- 5666 Jun, [facility] [place] [facility] [address] [id number] [place] [address]- 3075 May, [facility] [place] [facility] [address] [id number] [place] [address]- 0329 May, [facility] [place] [facility] [address] [id number] [address]- 8293 Apr, [facility] [place] [facility] [address] [id number] [place] [address]- 1990 Apr, [facility] [place] [facility] [address] [id number] [place] [address]- 8165 Apr, [facility] [place] [facility] [address] [id number] [place] [address]- 5866 Apr, [facility] [place] [facility] [address] [id number] [place] [address]- 5432 Apr, [facility] [address] [id number] [place] [address]- 9236 Apr, [facility] [place] [facility] [address] [id number] [place] [address]- 0822 Apr, [facility] [place] [facility] [address] [id number] [place] [address]- 6555 Apr, [facility] [place] [facility] [address] [id number] [place] [address]- 4872 Apr, [facility] [address] [id number] [place] [address]- 7943 Apr, [facility] [place] [facility] [address] [id number] [place] [address]- 6747 Mar, [facility] [place] [facility] [address] [id number] [place] [address]- 2552 Mar, [facility] [address] [id number] [place] [address]- 2534 November, [facility] [place] [facility] [address] [id number] [place] [address]- 2654 November, [facility] [address] [id number] [place] [address]- 2552 Sep, [facility] [place] [facility] [address] [id number] [place] [address]- 8087 Sep, [facility] [place] [facility] [address] [id number] [place] [address]- 8960 Jun, [facility] [place] [facility] [address] [id number] [place] [address]- 9997 Jun, [facility] [place] [facility] [address] [id number] [place] [address]- 2546 Jun, [facility] [place] [facility] [address] [id number] [place] [address]- 1740 Jun, [facility] [address] [id number] [place] [address]- 7912 Apr, [facility] [place] [facility] [address] [id number] [place] [address]- 4916 Mar, [facility] [place] [facility] [address] [id number] [place] [address]- 1619 Mar, [facility] [place] [facility] [address] [id number] [place] [address]- 0253 Mar, [facility] [address] [id number] [place] [address]- 1850 Feb, [facility] [place] [facility] [address] [id number] [place] [address]- 0006 Jan, [facility] [place] [facility] [address] [id number] [place] [address]- 9676 November, [facility] [place] [facility] [address] [id number] [place] [address]- 2345 November, [facility] [place] [facility] [address] [id number] [place] [address]- 8654 Oct, [facility] [place] [facility] [address] [id number] [place] [address]- 7474 Aug, [facility] [place] [facility] [address] [id number] [place] [address]- 2008 Jun, [facility] [place] [facility] [address] [id number] [place] [address]- 3515 Jun, [facility] [place] [facility] [address] [id number] [place] [address]- 5272 May, [facility] [place] [facility] [address] [id number] [place] [address]- 2762 May, [facility] [place] [facility] [address] [id number] [place] [address]- 7517 May, [facility] [place] [facility] [address] [id number] [place] [address]- 2419 May, [facility] [place] [facility] [address] [id number] [place] [address]- 1058 May, [facility] [place] [facility] [address] [id number] [place] [address]- 5870 May, [facility] [place] [facility] [address] [id number] [place] [address]- 7834 May, [facility] [place] [facility] [address] [id number] [place] [address]- 8384 May, [facility] [place] [facility] [address] [id number] [place] [address]- 6385 May, [facility] [place] [facility] [address] [id number] [place] [address]- 9365 May, [facility] [place] [facility] [address] [id number] [place] [address]- 9674 Apr, [facility] [place] [facility] [address] [id number] [place] [address]- 0204 24 Mar, 2012 [facility] [place] [facility] [address] [id number] [place] [address]- 9800 Mar, [facility] [place] [facility] [address] [facility] [id number] [place] [address]- 8917 Feb, [facility] [place] [facility] [address] [id number] [place] [address]- 0338 November, [facility] [place] [facility] [address] [id number] [place] [address]- 7310 Sep, [facility] [place] [facility] [address] [id number] [place] [address]- 3558 14 Sep, 2011 [facility] [place] [facility] [address] [id number] [place] [address]- 2887 Sep, [facility] [place] [facility] [address] [facility] [id number] [place] [address]- 2353 Sep, [facility] [place] [facility] [address] [id number] [place] [address]- 0163 13 Jul, 2011 [facility] [address] [id number] [place] [address]- 5786 Jun, [facility] [place] [facility] [address] [id number] [place] [address]- 2469 Jun, [facility] [place] [facility] [address] [id number] [place] [address]- 5650 08 Jun, 2011 [facility] [place] [facility] [address] [id number] [place] [address]- 7900 Apr, [facility] [place] [facility] [address] [id number] [place] [address]- 3923 Jan, [facility] [place] [facility] [address] [id number] [place] [address]- 1238 15 Dec, 2010 [facility] [place] [facility] [address] [id number] [place] [address]- 3378 15 Aug, 2010 [facility] [place] [facility] [address] [id number] [place] [address]- 4608 24 May, 2010 [facility] [place] [facility] [address] [id number] [place] [address]- 1091 15 May, 2010 [facility] [place] [facility] [address] [id number] [place] [address]- 3915 May, [facility] [place] [facility] [address] [id number] [place] [address]- 3562 May, [facility] [place] [facility] [address] [id number] [place] [address]- 8534 27 Apr, 2010 [facility] [place] [facility] [address] [id number] [place] [address]- 6074 11 Aug, 2009 [facility] [place] [facility] [address] [id number] [place] [address]- 7427 19 Jul, 2009 [facility] [place] [facility] [address] [id number] [place] [address]- 7338 Dec, IMMUNIZATIONS No Known Immunizations SOCIAL HISTORY Never Assessed REASON FOR VISIT Refill request PLAN OF CARE VITAL SIGNS MEDICATIONS Medication Instructions Dosage Frequency Start Date End Date Duration Status Atenolol 100 MG TAKE ONE TABLET BY MOUTH ONCE DAILY (NEEDS APPOINTMENT FOR FURTHER REFILLS) 30 Active RESULTS No Results PROCEDURES No [...]
--- OUTSIDE RECORDS SUMMARY | 2018-09-28 08:56 | XMS REPORT ---
Author Author MELI MELARA Organization [facility] Address [address] [place] [address] Care Team Providers Care Technician Biological Health Name Role Phone MELI MELARA Unavailable PROBLEMS Type Condition ICD9-CM Code GQV08-QV Code Onset Dates Condition Status SNOMED Code Problem Primary insomnia F51.01 Active 5557604 Problem VANESSA (obstructive sleep apnea) G47.33 Active 95309075 Problem Hypercholesterolemia E78.0 Active 74051254 Problem Hypertension, benign I10 Active 20539822 Problem Other chronic pain G89.29 Active 54405637 Problem Essential hypertension I10 Active 50411973 ALLERGIES Substance Reaction Event Type Date Status Sinemet Unknown Drug Allergy Jan, Active Lipitor Unknown Drug Allergy Jan, Active ENCOUNTERS Encounter Location Date Diagnosis [place] [address] [address] Jan, Hypertension, benign I10 and Primary insomnia F51.01 [place] [address] 07[address]- 2398 November, Hypertension, benign I10 [facility] [address] [place] [id number] [place] [address] 39839- 0220 Oct, [place] [address] [address]- 6299 Sep, Nocturnal polyuria R35.1 and Dysuria R30.0 [facility] [address] [address]- 5[address] Jun, Hypertension, benign I10 [place] [address] [address]17- 4219 Apr, Encounter for immunization Z23 [place] [address] 51518- 4898 Jan, Hypertension, benign I10 and VANESSA (obstructive sleep apnea) G47.33 [place] [address] [place] [id number] [place] [address] 33288- 3087 Jan, Hypertension, benign I10 and VANESSA (obstructive sleep apnea) G47.33 [place] [address] [place] [id number] [place] [address] 48723- 9594 Jan, [place] [address] 71155- 9712 November, Hypertension, benign I10 [place] [address] [place] [id number] [place] [address] 55166- 3651 Aug, [place] [address] 41505- 3836 Jul, Other chronic pain G89.29 and Pain in left shoulder M25.512 [place] [address] 46872- 0630 Jul, Other chronic pain G89.29 ; Pain in left shoulder M25.512 and Hypertension, benign I10 [place] [address] [place] [id number] [place] [address] 71570- 1446 Jun, [place] [address] [place] [id number] [place] [address] 39231- 9233 Jun, Hypertension, benign I10 [place] [address] [place] [id number] [place] [address] 33911- 0237 Apr, Essential hypertension I10 and Pure hypercholesterolemia E78.00 [place] [address] [place] [id number] [place] [address] 79465- 8387 Feb, [place] [address] 08360- 7671 Jan, [place] [address] [place] [id number] [place] [address] 74859- 0716 Jan, [place] [address] 80993- 8356 15 Jan, 2016 Benign non-nodular prostatic hyperplasia with lower urinary tract symptoms N40.1 and Hypertension, benign I10 [facility] [address] [place] [id number] [place] [address] 78036- 1641 14 Jan, 2016 Benign non-nodular prostatic hyperplasia with lower urinary tract symptoms N40.1 and Hypertension, benign I10 [facility] [address] [place] [id number] [place] [address] 23296- 1695 Dec, [facility] [address] [place] [id number] [place] [address] 89051 -6819 November, Contact dermatitis, unspecified contact dermatitis type, unspecified trigger L25.9 [place] [address] [place] [id number] [place] [address] 82185- 5752 Oct, [place] [address] [place] [id number] [place] [address] 53452- 8980 Oct, Hypertension, benign I10 [facility] [address] [place] [id number] [place] [address] 74739- 3796 Sep, [facility] [address] [place] [id number] [place] [address] 19357 -5800 Aug, Left shoulder pain M25.512 [place] [address] [place] [id number] [place] [address] 71637- 7445 Jul, Hypertension, benign I10 [facility] [address] [place] [id number] [place] [address] 13020- 1992 Jul, Hypertension 401.9 [facility] [address] [place] [id number] [place] [address] 91895- 4383 May, Hypertension, benign I10 ; Anxiety F41.9 and Hypercholesterolemia E78.0 [facility] [address] [place] [id number] [place] [address] 68121- 6943 May, [facility] [address] [place] [id number] [place] [address] 55523- 2467 Apr, [id number] [address] 8685 Apr, Hypertension, benign I10 [facility] [address] [place] [id number] [address]- 0859 Apr, Hypertension, benign I10 [facility] [address] [address]- 8793 Apr, Encounter for immunization Z23 [facility] [address] [place] [id number] [place] [address] 33024- 6408 Mar, Hypertension 401.9 [facility] [address] [place] [id number] [place] [address] 24734- 0670 Feb, HTN (hypertension) 401.9 [facility] [address] [address]- 9622 Jan, HTN (hypertension) 401.9 [facility] [address] [address]- 3823 Dec, Hypertension 401.9 [facility] [address] [address]- 6331 November, Hypertension 401.9 [facility] [address] [address]- 2373 November, [facility] [address] [address]- 3058 November, [facility] [address] [address]- 3541 November, [facility] [address] [place] [id number] [address]- 5409 Oct, [facility] [address] [address]- 9669 Oct, [facility] [address] [place] [id number] [address]- 8758 Sep, [facility] [address] [place] [id number] [place] [address]- 1767 Sep, [facility] [place] [facility] [address] [id number] [place] [address]- 7120 Sep, [facility] [place] [facility] [address] [id number] [place] [address]- 3090 Sep, [facility] [place] [facility] [address] [id number] [place] [address]- 2370 Sep, [facility] [place] [facility] [address] [id number] [place] [address]- 0408 Sep, [facility] [place] [facility] [address] [id number] [place] [address]- 6262 Sep, [facility] [place] [facility] [address] [id number] [place] [address]- 7856 Sep, [facility] [place] [facility] [address] [id number] [place] [address]- 4008 Aug, [facility] [place] [facility] [address] [id number] [place] [address]- 9194 Aug, [facility] [place] [facility] [address] [id number] [place] [address]- 5068 Aug, [facility] [place] [facility] [address] [facility] [id number] [place] [address]- 2779 Aug, [facility] [place] [facility] [address] [facility] [id number] [place] [address]- 5280 Aug, [facility] [place] [facility] [address] [id number] [place] [address]- 6339 Aug, [facility] [place] [facility] [address] [id number] [place] [address]- 8193 Jul, [facility] [place] [facility] [address] [id number] [place] [address]- 8106 Jul, [facility] [place] [facility] [address] [facility] [id number] [place] [address]- 0611 Jul, [facility] [place] [facility] [address] [id number] [place] [address]- 0536 Jul, [facility] [place] [facility] [address] [id number] [place] [address]- 1437 Jul, [facility] [place] [facility] [address] [id number] [place] [address]- 3578 Jul, [facility] [place] [facility] [address] [id number] [place] [address]- 8402 Jul, [facility] [place] [facility] [address] [id number] [place] [address]- 3406 Jul, [facility] [place] [facility] [address] [id number] [place] [address]- 7608 Jul, [facility] [place] [facility] [address] [id number] [place] [address]- 8947 Jul, [facility] [place] [facility] [address] [id number] [place] [address]- 5563 Jun, [facility] [place] [facility] [address] [id number] [place] [address]- 4948 Jun, [facility] [place] [facility] [address] [id number] [place] [address]- 5519 May, [facility] [place] [facility] [address] [id number] [place] [address]- 6228 May, [facility] [place] [facility] [address] [id number] [place] [address]- 0361 Apr, [facility] [place] [facility] [address] [id number] [place] [address]- 8529 Apr, [facility] [place] [facility] [address] [id number] [place] 1271 Apr, [facility] [place] [facility] [address] [id number] [place] 7591 Apr, [facility] [place] [facility] [address] [id number] [place] [address]- 0898 Apr, [facility] [place] [facility] [address] [id number] [place] [address]- 1462 Apr, [facility] [place] [facility] [address] [id number] [place] [address]- 7683 Apr, [facility] [place] [facility] [address] [id number] [place] [address]- 6457 Apr, [facility] [place] [facility] [address] [id number] [place] [address]- 9377 Apr, [facility] [place] [facility] [address] [id number] [place] [address]- 5804 Apr, [facility] [place] [facility] [address] [id number] [place] [address]- 8333 Mar, [facility] [place] [facility] [address] [id number] [place] [address]- 6486 Mar, [facility] [place] [facility] [address] [id number] [place] [address]- 6676 November, [facility] [place] [facility] [address] [id number] [place] [address]- 1395 November, [facility] [place] [facility] [address] [id number] [place] [address]- 0461 Sep, [facility] [place] [facility] [address] [id number] [place] [address]- 7143 Sep, [facility] [place] [facility] [address] [id number] [place] [address]- 1864 Jun, [facility] [place] [facility] [address] [id number] [place] [address]- 2164 Jun, [facility] [place] [facility] [address] [id number] [place] [address]- 2772 Jun, [facility] [place] [facility] [address] [id number] [place] [address]- 5612 Jun, [facility] [place] [facility] [address] [id number] [place] [address]- 7450 Apr, [facility] [place] [facility] [address] [id number] [place] [address]- 0311 24 Mar, 2013 [facility] [place] [facility] [address] [id number] [place] [address] 2546 Mar, [facility] [place] [facility] [address] [id number] [place] [address]- 7722 Mar, [facility] [place] [facility] [address] [id number] [place] [address]- 6418 Feb, [facility] [place] [facility] [address] [id number] [place] [address]- 5355 Jan, [facility] [place] [facility] [address] [id number] [place] [address]- 2758 November, [facility] [place] [facility] [address] [id number] [place] [address]- 2637 November, [facility] [address] [id number] [place] [address]- 7471 Oct, [facility] [place] [facility] [address] [id number] [place] [address]- 8044 Aug, [facility] [place] [facility] [address] [id number] [place] [address]- 0299 Jun, [facility] [place] [facility] [address] [id number] [place] [address]- 9291 Jun, [facility] [place] [facility] [address] [id number] [place] 3827 May, [facility] [place] [facility] [address] [id number] [place] [address]- 0469 May, [facility] [place] [facility] [address] [id number] [place] [address]- 3063 May, [facility] [place] [facility] [address] [id number] [place] [address]- 7884 May, [facility] [place] [facility] [address] [id number] [place] [address]- 6063 May, [facility] [place] [facility] [address] [id number] [place] [address]- 5648 May, [facility] [place] [facility] [address] [facility] [id number] [place] [address]- 3600 May, [facility] [place] [facility] [address] [id number] [place] [address]- 7191 May, [facility] [place] [facility] [address] [id number] [place] [address]- 6512 May, [facility] [place] [facility] [address] [id number] [place] [address]- 8603 May, [facility] [place] [facility] [address] [id number] [place] [address]- 5957 Apr, [facility] [place] [facility] [address] [id number] [place] [address]- 4443 Mar, [facility] [place] [facility] [address] [id number] [place] [address]- 8388 Mar, [facility] [place] [facility] [address] [id number] [place] [address]- 9877 Feb, [facility] [place] [facility] [address] [id number] [place] [address]- 4161 November, [facility] [place] [facility] [address] [id number] [place] [address]- 8785 Sep, [facility] [place] [facility] [address] [id number] [place] [address]- 0592 14 Sep, 2011 [facility] [place] [facility] [address] [facility] [id number] [place] [address]- 2920 Sep, [facility] [place] [facility] [address] [facility] [id number] [place] [address]- 0529 Sep, [facility] [place] [facility] [address] [id number] [place] [address]- 8030 13 Jul, [address] [facility] [address] [id number] [place] [address]- 2853 Jun, [facility] [address] [id number] [place] 1166 22 Jun, 2011 [facility] [address] [id number] [place] [address]- 6991 08 Jun, 2011 [facility] [address] [id number] [place] [address]- 2544 Apr, [facility] [id number] [place] [address], [place] [address]- 7663 13 Jan, 2011 [facility] [address] [facility] [id number] [place] [address]- 7703 15 Dec, 2010 [facility] [address] [facility] [id number] [place] [address]- 9667 15 Aug, 2010 [facility] [address] [id number] [place] [address]- 5666 24 May, 2010 [facility] [address] [place] [id number] [address]- 4356 15 May, 2010 [facility] [address] [facility] [id number] [place] [address]- 6596 11 May, 2010 [facility] [address] [facility] [id number] [place] [address]- 2549 09 May, 2010 [facility] [address] [facility] [id number] [place] [address]- 2596 27 Apr, 2010 [facility] [address] [facility] [id number] [place] [address]- 9852 11 Aug, 2009 [facility] [address] [facility] [id number] [place] [address]- 0492 19 Jul, 2009 [facility] [address] [facility] [id number] [place] [address]- 3844 Dec, IMMUNIZATIONS No Known Immunizations SOCIAL HISTORY Never Assessed 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 PLAN OF CARE VITAL SIGNS Height 70 in 2018-01-15 Weight 204.3 lbs 2018-01-15 Temperature 98.0 degrees Fahrenheit 2018-01-15 Heart Rate 78 bpm 2018-01-15 Respiratory Rate 18 2018-01-15 BMI 29.31 kg/m2 2018-01-15 Blood pressure systolic 122 mmHg 2018-01-15 Blood pressure diastolic 80 mmHg 2018-01-15 MEDICATIONS Medication Instructions Dosage Frequency Start Date End Date Duration Status Finasteride 5 mg Orally Once a day 1 tablet 24h Sep, Feb, 30 day(s) Active Amlodipine Besylate 10 MG TAKE ONE TABLET BY MOUTH ONCE DAILY (NEEDS APPOINTMENT FOR FURTHER REFILLS) 30 Active Atenolol 100 MG TAKE ONE TABLET BY MOUTH ONCE DAILY (NEEDS APPOINTMENT FOR FURTHER REFILLS) 30 Active Doxepin HCl 25 MG Orally Once a day 2 capsule at bedtime 24h Jan, Active Valium 10 mg Orally Twice a day 1 tablet as needed 12h Aug, 28 days Active Fish Oil 1 gram 3 capsule by Oral route 1 time per day November, Not-Taking Hydrochlorothiazide 12.5 MG Orally Once a day 1 capsule in the morning 24h Sep, 30 day(s) Not-Taking RESULTS No Results PROCEDURES Procedure Date Ordered Result Body Site [facility] VISIT ESTABLISHED PATIENT January 15, 2018 INSTRUCTIONS MEDICATIONS ADMINISTERED No Known Medications [...]
--- OUTSIDE RECORDS SUMMARY | 2018-09-28 08:57 | XMS REPORT ---
Author Author MELI MELARA Organization [facility] Address [address] [place] [address] Care Team Providers Care Cereal Miller Name Role Phone MELI MELARA Unavailable PROBLEMS Type Condition ICD9-CM Code WIQ68-NC Code Onset Dates Condition Status SNOMED Code Problem VANESSA (obstructive sleep apnea) G47.33 Active 19865784 Problem Other chronic pain G89.29 Active 58980251 Problem Hypertension, benign I10 Active 83024561 Problem Essential hypertension I10 Active 44317423 Problem Hypercholesterolemia E78.0 Active 12705514 ALLERGIES No Information ENCOUNTERS Encounter Location Date Diagnosis [address] [address] Oct, [place] [address] [address] Sep, Nocturnal polyuria R35.1 and Dysuria R30.[address] [address] Jun, Hypertension, benign I10 [place] [address] [address]- [address] Apr, Encounter for immunization Z23 [place] [address] [address]- [address]689 Jan, Hypertension, benign I10 and VANESSA (obstructive sleep apnea) G47.33 [place] [address] [address]- [address] Jan, Hypertension, benign I10 and VANESSA (obstructive sleep apnea) G47.33 [place] [address] [address]- [address] Jan, [place] [address] [place] [address] 16 Nov, 2016 Hypertension, benign I10 [facility] [address] [place] [id number] [place] [address]2980- 8698 15 Aug, 2016 [facility] [address] [place] [id number] [place] [address] 30078- 4521 17 Jul, 2016 Other chronic pain G89.29 and Pain in left shoulder M25.512 [facility] [address] [place] [id number] [place] [address] 71904- 5716 16 Jul, 2016 Other chronic pain G89.29 ; Pain in left shoulder M25.512 and Hypertension, benign I10 [facility] [address] [place] [id number] [place] [address]56- 0890 Jun, [facility] [address] [place] [id number] [place] [address] 71029- 5914 Jun, Hypertension, benign I10 [facility] [address] [place] [id number] [place] [address] 30918- 1570 Apr, Essential hypertension I10 and Pure hypercholesterolemia E78.00 [facility] [address] [place] [id number] [place] [address] 98718- 3728 Feb, [facility] [address] [place] [id number] [place] [address] 94240- 3411 Jan, [place] [address] [place] [id number] [place] [address] 88547- 5473 Jan, [facility] [address] [place] [id number] [place] [address] 26736- 3536 Jan, Benign non-nodular prostatic hyperplasia with lower urinary tract symptoms N40.1 and Hypertension, benign I10 [facility] [address] [place] [id number] [place] [address] 40520- 5998 14 Jan, 2016 Benign non-nodular prostatic hyperplasia with lower urinary tract symptoms N40.1 and Hypertension, benign I10 [facility] [address] [place] [id number] [place] [address] 45417- 9834 Dec, [facility] [address] [place] [id number] [place] [address] 47759 -5141 November, Contact dermatitis, unspecified contact dermatitis type, unspecified trigger L25.9 [facility] [address] [place] [id number] [place] [address] 76535- 2539 Oct, [facility] [address] [address]- 1940 Oct, Hypertension, benign I10 [facility] [address] [place] [id number] [place] [address] 11175- 8791 Sep, [facility] [address] 35588 -3927 Aug, Left shoulder pain M25.512 [facility] [address] [place] [id number] [place] [address] 24734- 9447 Jul, Hypertension, benign I10 [facility] [address] [place] [id number] [place] [address] 37902- 3834 Jul, Hypertension 401.9 [facility] [address] 18299- 6927 May, Hypertension, benign I10 ; Anxiety F41.9 and Hypercholesterolemia E78.0 [place] [address] [place] [id number] [place] [address] 14150- 1912 May, [facility] [address] [place] [id number] [place] [address] 04870- 5982 Apr, [facility] [address] [place] [id number] [place] [address] 66469- 0166 Apr, Hypertension, benign I10 [place] [address] 60054- 1896 Apr, Hypertension, benign I10 [facility] [address] [place] [id number] [place] [address] 53719- 5928 Apr, Encounter for immunization Z23 [place] [address] [place] [id number] [address] 18 Mar, 2015 Hypertension 401.9 [facility] [address] [id number] [address]- 5802 Feb, HTN (hypertension) 401.9 [facility] [address] [facility] [id number], [place] [address]- 1581 Jan, HTN (hypertension) 401.9 [facility] [address] [facility] [id number] [address]- 2384 Dec, Hypertension 401.9 [facility] [address] [facility] [id number] [place] [address]- 5244 November, Hypertension 401.9 [facility] [address] [facility] [id number][place] [address]- 6812 November, [facility] [address] [address]- 4673 November, [facility] [address] [id number] [address]- 8771 November, [facility] [address], [place] [address]- 385[address] Oct, [facility] [address] [id number] [address]- 0565 Oct, [facility] [address] [place] [id number], [place] [address]- 6437 Sep, [facility] [address] [facility] [id number], [place] [address]- 9721 Sep, [facility] [address] [facility] [id number], [place] [address]- 9646 Sep, [facility] [address] [facility] [id number], [place] [address]- 0965 Sep, [facility] [address] [id number], [place] [address]- 6322 Sep, [facility] [place] [facility] [address] [id number] [place] [address]- 7070 Sep, [facility] [place] [facility] [address] [id number] [place] [address]- 5902 Sep, [facility] [place] [facility] [address] [id number] [place] [address]- 2394 Sep, [facility] [place] [facility] [address] [id number] [place] [address]- 2757 Aug, [facility] [place] [facility] [address] [id number] [place] [address]- 0076 Aug, 2014 [facility] [place] [facility] [address] [id number] [place] [address]- 8473 Aug, [facility] [place] [facility] [address] [id number] [place] [address]- 8772 Aug, [facility] [place] [facility] [address] [id number] [place] [address]- 2605 Aug, [facility] [place] [facility] [address] [id number] [place] [address]- 0846 Aug, [facility] [place] [facility] [address] [id number] [place] [address]- 5925 Jul, [facility] [place] [facility] [address] [id number] [place] [address]- 0798 Jul, [facility] [place] [facility] [address] [id number] [place] [address]- 2556 Jul, [facility] [place] [facility] [address] [id number] [place] [address]- 3026 Jul, [facility] [place] [facility] [address] [id number] [place] [address]- 4763 Jul, [facility] [place] [facility] [address] [id number] [place] [address]- 4873 Jul, [facility] [place] [facility] [address] [id number] [place] [address]- 7856 Jul, [facility] [place] [facility] [address] [id number] [place] [address]- 5512 Jul, [facility] [place] [facility] [address] [id number] [place] [address]- 7958 Jul, [facility] [place] [facility] [address] [id number] [place] [address]- 6490 Jul, [facility] [place] [facility] [address] [id number] [place] [address]- 1952 Jun, [facility] [place] [facility] [address] [id number] [place] [address]- 7478 Jun, [facility] [place] [facility] [address] [id number] [place] [address]- 4023 May, [facility] [place] [facility] [address] [id number] [place] [address]- 2950 May, [facility] [place] [facility] [address] [id number] [place] [address]- 8471 Apr, [facility] [place] [facility] [address] [id number] [place] [address]- 8229 Apr, [facility] [place] [facility] [address] [id number] [place] [address]- 9985 Apr, [facility] [place] [facility] [address] [id number] [place] [address]- 7340 Apr, [facility] [place] [facility] [address] [id number], [place] [address]- 8159 Apr, [facility] [place] [facility] [address] [id number] [place] [address]- 3261 Apr, [facility] [place] [facility] [address] [id number] [place] [address]- 1721 Apr, [facility] [place] [facility] [address] [id number], [place] [address]- 1138 Apr, [facility] [place] [facility] [address] [id number] [place] [address]- 8110 Apr, [facility] [place] [facility] [address] [id number] [place] 6[address] Apr, [facility] [place] [facility] [address] [id number] [place] [address]- 5176 Mar, [facility] [place] [facility] [address] [id number] [place] [address]- 7311 Mar, [facility] [place] [facility] [address] [id number] [place] [address]10 November, [facility] [place] [facility] [address] [id number] [place] [address]- 0324 November, [facility] [place] [facility] [address] [id number] [place] [address]- 6041 Sep, [facility] [place] [facility] [address] [id number] [place] [address]- 4224 Sep, [facility] [place] [facility] [address] [id number] [place] 6554 Jun, [facility] [place] [facility] [address] [id number] [place] [address]- 4538 Jun, [facility] [place] [facility] [address] [id number] [place] [address]- 1443 Jun, [facility] [place] [facility] [address] [id number] [place] [address]- 2224 Jun, [facility] [place] [facility] [address] [id number] [place] [address]- 4410 Apr, [facility] [place] [facility] [address] [id number] [place] [address]- 1693 24 Mar, 2013 [facility] [place] [facility] [address] [id number] [place] [address]- 2546 06 Mar, 2013 [facility] [place] [facility] [address] [id number] [place] [address]- 3183 Mar, [facility] [address] [id number] [place] [address]- 7416 Feb, [facility] [place] [facility] [address] [id number] [place] [address]- 4685 Jan, [facility] [place] [facility] [address] [facility] [id number] [place] [address]- 9469 November, [facility] [place] [facility] [address] [id number] [place] [address]- 5908 November, [facility] [place] [facility] [address] [id number] [place] [address]- 4936 Oct, [facility] [place] [facility] [address] [id number] [place] [address]- 0533 Aug, [facility] [place] [facility] [address] [id number] [place] [address]- 3304 Jun, [facility] [place] [facility] [address] [id number] [place] [address]- 6771 Jun, [facility] [place] [facility] [address] [id number] [place] [address]- 9689 May, [facility] [place] [facility] [address] [id number] [place] [address]- 0875 May, [facility] [place] [facility] [address] [id number], [place] [address]- 1047 May, [facility] [place] [facility] [address] [id number], [place] [address]- 5645 May, [facility] [place] [facility] [address] [id number] [place] [address]- 0547 May, [facility] [place] [facility] [address] [id number], [place] [address]- 8857 May, [facility] [place] [facility] [address] [id number], [place] [address]- 3011 May, [facility] [place] [facility] [address] [id number] [place] [address]- 9799 May, [facility] [address] [id number] [place] [address]- 3904 May, [facility] [address] [id number] [place] [address] 2546 May, [facility] [address] [id number] [place] [address]- 7036 Apr, [facility] [address] [id number] [place] [address]- 8481 Mar, [facility] [address] [id number] [place] [address]- 0423 Mar, [facility] [address] [id number] [place] [address]- 0496 Feb, [facility] [address] [id number] [place] [address]- 7377 November, [facility] [address] [id number] [place] [address]- 9263 Sep, [facility] [address] [id number] [place] [address]- 8072 Sep, [facility] [address] [id number] [place] [address]- 4352 Sep, [facility] [address] [id number] [place] [address]- 2562 Sep, [facility] [address] [id number] [place] [address]- 6338 Jul, [facility] [address] [id number] [place] [address]- 9323 Jun, [facility] [place] [facility] [address] [id number] [place] [address]- 0181 Jun, [facility] [address] [id number] [place] [address]- 3252 Jun, [facility] [address] [address] [id number], [place] [address]- 3936 Apr, [facility] [address], [place] [address]- 8256 Jan, [facility] [address], [place] [address]- 5716 Dec, [facility] [address] [place] [address] 62706- 8708 Aug, [facility] [address], [place] [address]- 6248 May, [facility] [address] [place] [address] 60411- 5856 May, [facility] [address], [place] [address]- 1416 May, [facility] [address] [place] [address] 23106- 2159 May, [facility] [address], [place] [address]- 9452 Apr, [facility] [address], [place] [address]- 4690 Aug, [facility] [address], [place] [address]- 7886 Jul, [facility] [address] [id number], [place] [address]- 6433 Dec, IMMUNIZATIONS Vaccine Route Administration Date Status FLUARIX QUAD (3 AND UP) 2016 IM Intramuscular Apr 22, 2017 Administered SOCIAL HISTORY Never Assessed REASON FOR VISIT FLU SHOT---[place],CCMA PLAN OF CARE VITAL SIGNS MEDICATIONS Unknown Medications RESULTS No Results PROCEDURES Procedure Date Ordered Result Body Site FLUARIX QUAD (3 & UP)-GSK-2015 Apr 22, 2017 SINGLE IMMUNIZATION ADMIN Apr 22, 2017 INSTRUCTIONS MEDICATIONS ADMINISTERED No Known Medications MEDICAL (GENERAL) HISTORY Type Description Date Medical History hypertension Medical History hereditary spherocytosis Medical History hyperlipidemia Medical History insomnia Medical History testicular cancer Medical History restless leg syndrome Medical History Gout Medical History allergic rhinitis Medical History anxiety Surgical History orchiectomy with radiation 1983 Hospitalization History surgery
--- OUTSIDE RECORDS SUMMARY | 2018-09-28 08:57 | XMS REPORT ---
Author Author MELI MELARA Organization [facility] Address [address] [place] [address] Care Team Providers Care Recycling Attendant Name Role Phone MELI MELARA Unavailable PROBLEMS Type Condition ICD9-CM Code VEA08-PD Code Onset Dates Condition Status SNOMED Code Problem Primary insomnia F51.01 Active 9138144 Problem VANESSA (obstructive sleep apnea) G47.33 Active 58339951 Problem Hypercholesterolemia E78.0 Active 73415902 Problem Hypertension, benign I10 Active 83306090 Problem Other chronic pain G89.29 Active 94148718 Problem Essential hypertension I10 Active 24965558 ALLERGIES No Information ENCOUNTERS Encounter Location Date Diagnosis [place] [address] [address] Jan, Hypertension, benign I10 and Primary insomnia F51.01 [place] [address] [address]- [address] November, Hypertension, benign I10 [place] [address] [address]- 77[address] Oct, [place] [address] [address]- [address] Sep, Nocturnal polyuria R35.1 and Dysuria R30.0 [place] [address] [address]- [address] Jun, Hypertension, benign I10 [place] [address] [address]- [address]794 Apr, Encounter for immunization Z23 [place] [address] [address]- 75[address] Jan, Hypertension, benign I10 and VANESSA (obstructive sleep apnea) G47.33 [place] [address] [address] [place] [id number] [place] [address] 64574- 7742 Jan, Hypertension, benign I10 and VANESSA (obstructive sleep apnea) G47.33 [place] [address] [place] [id number] [place] [address] 45115- 0578 Jan, [place] [address] [place] [id number] [place] [address] 05944- 0627 November, Hypertension, benign I10 [place] [address] [place] [id number] [place] [address] 87475- 5059 Aug, [place] [address] 23861- 0328 Jul, Other chronic pain G89.29 and Pain in left shoulder M25.512 [place] [address] 14191- 0556 Jul, Other chronic pain G89.29 ; Pain in left shoulder M25.512 and Hypertension, benign I10 [place] [address] [place] [id number] [place] [address] 80880- 1227 Jun, [place] [address] [place] [id number] [place] [address] 22048- 6055 Jun, Hypertension, benign I10 [place] [address] [place] [id number] [place] [address] 15364- 9917 Apr, Essential hypertension I10 and Pure hypercholesterolemia E78.00 [place] [address] [place] [id number] [place] [address] 18342- 3164 Feb, [place] [address] [place] [id number] [place] [address] 77952- 1756 Jan, [place] [address] [place] [id number] [place] [address] 92618- 7284 Jan, [place] [address] [place] [id number] [place] [address] 93764- 3272 Jan, Benign non-nodular prostatic hyperplasia with lower urinary tract symptoms N40.1 and Hypertension, benign I10 [facility] [address] [place] [id number] [place] [address] 60008- 5442 Jan, Benign non-nodular prostatic hyperplasia with lower urinary tract symptoms N40.1 and Hypertension, benign I10 [facility] [address] [place] [id number] [place] [address] 28333- 2603 13 Dec, 2015 [facility] [address] [place] [id number] [place] [address] 51598 -6630 November, Contact dermatitis, unspecified contact dermatitis type, unspecified trigger L25.9 [facility] [address] [place] [id number] [place] [address] 80028- 3553 Oct, [facility] [address] [place] [id number] [place] [address] 09607- 4200 Oct, Hypertension, benign I10 [facility] [address] [place] [id number] [place] [address] 56772- 8071 Sep, [facility] [address] [place] [id number] [place] [address] 48897 -8233 Aug, Left shoulder pain M25.512 [facility] [address] [place] [id number] [place] [address] 69640- 1211 Jul, Hypertension, benign I10 [facility] [address] [place] [id number] [place] [address] 26524- 5659 Jul, Hypertension 401.9 [facility] [address] [place] [id number] [place] [address] 80286- 4538 May, Hypertension, benign I10 ; Anxiety F41.9 and Hypercholesterolemia E78.0 [facility] [address] 7[address]37- 3404 May, [facility] [address] [place] [id number] [place] [address] 61383- 7630 Apr, [facility] [address] 22252- 8153 Apr, Hypertension, benign I10 [facility] [address] [address]- 7701 Apr, Hypertension, benign I10 [facility] [id number] [place] [address] 584079- 5209 Apr, Encounter for immunization Z23 [facility] [address] [place] [id number] [place] [address] 29918- 2221 Mar, Hypertension 401.9 [facility] [address] [place] [id number] [place] [address] 22091- 3368 Feb, HTN (hypertension) 401.9 [facility] [address] [place] [id number] [place] [address] 40722- 4939 Jan, HTN (hypertension) 401.9 [facility] [address] [place] [id number] [place] [address] 08915- 7423 Dec, Hypertension 401.9 [facility] [address] [place] [id number] [place] [address] 27338- 0953 November, Hypertension 401.9 [facility] [id number] [place] [address] 30555- 3689 November, [facility] [address] [address]- 6597 November, [facility] [address] [address]- 2886 November, [facility] [address] [address]- 2577 Oct, [facility] [id number] [place] [address] 39962- 3510 Oct, [facility] [address] [address]- 3117 Sep, [facility] [address] [address]- 5727 Sep, [facility] [place] [facility] [address] [id number] [place] [address]- 5902 18 Sep, 2014 [facility] [place] [facility] [address] [id number] [place] [address]- 8952 Sep, [facility] [place] [facility] [address] [id number] [place] [address]- 2581 Sep, [facility] [place] [facility] [address] [id number] [place] [address]- 8173 Sep, [facility] [place] [facility] [address] [id number] [place] [address]- 5281 Sep, [facility] [place] [facility] [address] [id number] [place] [address]- 4588 Sep, [facility] [place] [facility] [address] [facility] [id number] [place] [address]- 3086 Aug, [facility] [place] [facility] [address] [id number] [place] [address]- 6688 Aug, [facility] [place] [facility] [address] [id number] [place] [address]- 3186 Aug, [facility] [place] [facility] [address] [facility] [id number] [place] [address]- 0370 Aug, [facility] [place] [facility] [address] [facility] [id number] [place] [address]- 0207 Aug, [facility] [place] [facility] [address] [id number] [place] [address]- 4953 Aug, [facility] [place] [facility] [address] [id number] [place] [address]- 1337 Jul, [facility] [place] [facility] [address] [id number] [place] [address]- 5303 Jul, [facility] [place] [facility] [address] [id number] [place]30 Jul, [facility] [place] [facility] [address] [id number] [address]- 7345 Jul, [facility] [place] [facility] [address] [id number] [place] [address]- 6240 Jul, [facility] [place] [facility] [address] [id number] [place] [address]- 0368 Jul, [facility] [place] [facility] [address] [id number] [place] [address]- 1611 Jul, [facility] [place] [facility] [address] [id number] [place] [address]- 9002 Jul, [facility] [place] [facility] [address] [id number] [place] [address]- 3689 Jul, [facility] [place] [facility] [address] [id number] [place] [address]- 9933 Jul, [facility] [place] [facility] [address] [id number] [place] [address]- 4234 Jun, [facility] [place] [facility] [address] [id number] [place] [address]- 5592 Jun, [facility] [place] [facility] [address] [id number] [place] [address]- 8770 May, [facility] [place] [facility] [address] [id number] [place] [address]- 6964 May, [facility] [place] [facility] [address] [id number] [address]- 0303 Apr, [facility] [place] [facility] [address] [id number], [place] [address]- 2921 Apr, [facility] [place] [facility] [address] [id number] [place] [address]- 8983 Apr, [facility] [place] [facility] [address] [id number] [place] [address]- 2425 Apr, [facility] [place] [facility] [address] [id number] [place] [address]- 3599 Apr, [facility] [place] [facility] [address] [id number] [place] [address]- 3865 Apr, [facility] [place] [facility] [address] [id number] [place] [address]- 2068 Apr, [facility] [place] [facility] [address] [id number] [place] [address]- 9545 Apr, [facility] [place] [facility] [address] [id number] [place] [address]- 7340 Apr, [facility] [place] [facility] [address] [id number] [place] [address]- 2159 Apr, [facility] [place] [facility] [address] [id number] [place] [address]- 0752 Mar, [facility] [place] [facility] [address] [id number] [place] [address]- 2678 Mar, [facility] [place] [facility] [address] [id number] [place] [address]- 8970 November, [facility] [address] [id number] [place] [address]- 0247 November, [facility] [place] [facility] [address] [id number] [place] [address]- 9883 Sep, [facility] [place] [facility] [address] [id number] [place] [address]- 0517 Sep, [facility] [place] [facility] [address] [id number] [place] [address]- 6932 Jun, [facility] [place] [facility] [address] [id number] [place] [address]- 2178 Jun, [facility] [place] [facility] [address] [id number] [place] [address]- 8373 Jun, [facility] [place] [facility] [address] [id number] [place] [address]- 6776 Jun, [facility] [place] [facility] [address] [id number] [place] [address]- 5039 Apr, [facility] [address] [id number] [place] [address]- 3125 Mar, [facility] [place] [facility] [address] [id number] [place] [address]- 9354 Mar, [facility] [place] [facility] [address] [id number] [place] [address]- 2366 Mar, [facility] [place] [facility] [address] [id number] [place] [address]- 3993 Feb, [facility] [place] [facility] [address] [id number] [place] [address]- 5118 Jan, [facility] [place] [facility] [address] [id number] [place] [address]- 2550 November, [facility] [place] [facility] [address] [id number] [place] [address]- 6772 November, [facility] [address] [id number] [place] [address]- 8441 Oct, [facility] [place] [facility] [address] [id number] [place] [address]- 0550 Aug, [facility] [place] [facility] [address] [id number] [place] [address]- 2331 Jun, [facility] [place] [facility] [address] [id number] [place] [address]- 7428 Jun, [facility] [place] [facility] [address] [id number] [address]- 0965 May, [facility] [place] [facility] [address] [id number] [place] [address]- 3806 May, [facility] [place] [facility] [address] [id number] [place] [address]- 1857 May, [facility] [place] [facility] [address] [id number] [place] [address]- 0836 May, [facility] [place] [facility] [address] [id number] [place] [address]- 0284 13 May, 2012 [facility] [place] [facility] [address] [id number] [place] [address]- 4487 13 May, 2012 [facility] [place] [facility] [address] [id number] [place] [address]- 3166 May, [facility] [place] [facility] [address] [id number] [place] [address]- 9098 May, [facility] [place] [facility] [address] [id number] [place] [address]- 3376 May, [facility] [place] [facility] [address] [id number] [place] [address]- 3897 May, [facility] [place] [facility] [address] [id number] [place] [address]- 1634 Apr, [facility] [place] [facility] [address] [id number] [place] [address]- 7576 24 Mar, 2012 [facility] [place] [facility] [address] [id number] [place] [address]- 5615 Mar, [facility] [place] [facility] [address] [id number] [place] [address]- 9334 Feb, [facility] [place] [facility] [address] [facility] [id number] [place] [address]- 9514 November, [facility] [place] [facility] [address] [id number] [place] [address]- 7046 26 Sep, 2011 [facility] [place] [facility] [address] [id number] [place] [address]- 1490 14 Sep, 2011 [facility] [place] [facility] [address] [id number] [place] [address]- 9921 12 Sep, 2011 [facility] [place] [facility] [address] [id number] [place] [address]- 8337 07 Sep, 2011 [facility] [place] [facility] [address] [facility] [id number] [place] [address]- 0957 Jul, [facility] [place] [facility] [address] [facility] [id number] [address]- 2487 Jun, [facility] [address] [facility] [id number] 5917 Jun, [facility] [address] [facility] [id number] 1326 Jun, [facility] [address] [facility] [id number] [place] [address] 05496- 1318 Apr, [facility] [address] [facility] [id number], [place] [address]- 2495 Jan, [facility] [address] [facility] [id number] [place] [address] 06469- 0840 Dec, [facility] [address] [address]- 3127 Aug, [facility] [address], [place] [address]- 7156 May, [facility] [address], [place] [address]- 1421 May, [facility] [address], [place] [address]- 9048 May, [facility] [address] [address]- 8671 May, [facility] [address] [address]- 4472 Apr, [facility] [address] [place] [id number] [address]- 8203 Aug, [facility] [address] [address]- 7209 Jul, [facility] [address] [place] [id number], [place] [address]- 9392 Dec, IMMUNIZATIONS No Known Immunizations SOCIAL HISTORY Never Assessed REASON FOR VISIT Controlled Med Refill PLAN OF CARE VITAL SIGNS MEDICATIONS Medication Instructions Dosage Frequency Start Date End Date Duration Status Valium 10 mg Orally Twice a day [...]
--- OUTSIDE RECORDS SUMMARY | 2018-09-28 08:57 | XMS REPORT ---
Author Author MELI MELARA Organization [facility] Address [address] [place] [address] Care Team Providers Care Grades 1 6 Tutor Name Role Phone MELI MELARA Unavailable PROBLEMS Type Condition ICD9-CM Code RBN89-IC Code Onset Dates Condition Status SNOMED Code Problem Primary insomnia F51.01 Active 6086391 Problem VANESSA (obstructive sleep apnea) G47.33 Active 18883266 Problem Hypercholesterolemia E78.0 Active 89083469 Problem Hypertension, benign I10 Active 25698277 Problem Other chronic pain G89.29 Active 04792499 Problem Essential hypertension I10 Active [id number] ALLERGIES No Information ENCOUNTERS Encounter Location Date Diagnosis [place] [address] [address] Jan, Hypertension, benign I10 and Primary insomnia F51.01 [place] [address] 6[address]- [address] November, Hypertension, benign I10 [place] [address] [address]- [address]40 Oct, [place] [address] [address]- [address] Sep, Nocturnal polyuria R35.1 and Dysuria R30.0 [place] [address] [address]43- 0728 Jun, Hypertension, benign I10 [place] [address] [address]- [address] Apr, Encounter for immunization Z23 [place] [address] 9[address]39- 8103 Jan, Hypertension, benign I10 and VANESSA (obstructive sleep apnea) G47.33 [place] [address] [place] [id number] [place] [address] 96655- 5210 Jan, Hypertension, benign I10 and VANESSA (obstructive sleep apnea) G47.33 [place] [address] [place] [id number] [place] [address] 82269- 4316 Jan, [place] [address] [place] [id number] [place] [address] 34376- 1620 November, Hypertension, benign I10 [place] [address] [place] [id number] [place] [address] 43540- 7703 Aug, [place] [address] [address]- 1149 Jul, Other chronic pain G89.29 and Pain in left shoulder M25.512 [place] [address] 88265- 9019 Jul, Other chronic pain G89.29 ; Pain in left shoulder M25.512 and Hypertension, benign I10 [place] [address] [place] [id number] [place] [address] 50204- 4044 Jun, [place] [address] [place] [id number] [place] [address] 38188- 7035 Jun, Hypertension, benign I10 [place] [address] [place] [id number] [place] [address] 87452- 5017 Apr, Essential hypertension I10 and Pure hypercholesterolemia E78.00 [place] [address] [place] [id number] [place] [address] 70760- 9489 Feb, [place] [address] [place] [id number] [place] [address] 73196- 7176 Jan, [place] [address] [place] [id number] [place] [address] 52562- 4095 Jan, [place] [address] [place] [id number] [place] [address] 11515- 6703 Jan, Benign non-nodular prostatic hyperplasia with lower urinary tract symptoms N40.1 and Hypertension, benign I10 [facility] [address] [place] [id number] [place] [address] 82818- 2479 Jan, Benign non-nodular prostatic hyperplasia with lower urinary tract symptoms N40.1 and Hypertension, benign I10 [facility] [address] [place] [id number] [place] [address] 08886- 4666 13 Dec, 2015 [facility] [address] [place] [id number] [place] [address] 14115 -0074 November, Contact dermatitis, unspecified contact dermatitis type, unspecified trigger L25.9 [facility] [address] [place] [id number] [place] [address] 29843- 2463 Oct, [facility] [address] [place] [id number] [place] [address] 76990- 9446 Oct, Hypertension, benign I10 [facility] [address] [place] [id number] [place] [address] 80842- 5164 Sep, [facility] [address] [place] [id number] [place] [address] 60441 -3564 Aug, Left shoulder pain M25.512 [facility] [address] [place] [id number] [place] [address] 31680- 6371 Jul, Hypertension, benign I10 [facility] [address] [place] [id number] [place] [address] 96244- 5326 Jul, Hypertension 401.9 [facility] [address] [place] [id number] [place] [address] 88228- 6524 May, Hypertension, benign I10 ; Anxiety F41.9 and Hypercholesterolemia E78.0 [facility] [address] 55248- 1803 May, [facility] [address] [place] [id number] [place] [address] 50520- 5701 Apr, [facility] [address] 31402- 3448 Apr, Hypertension, benign I10 [facility] [address] [address]- 2882 Apr, Hypertension, benign I10 [facility] [id number] [place] [address] 372224- 6998 Apr, Encounter for immunization Z23 [facility] [address] [place] [id number] [place] [address] 17026- 9881 Mar, Hypertension 401.9 [facility] [address] [place] [id number] [place] [address] 70571- 8545 Feb, HTN (hypertension) 401.9 [facility] [address] [place] [id number] [place] [address] 91934- 8773 Jan, HTN (hypertension) 401.9 [facility] [address] [place] [id number] [place] [address] 05790- 5871 Dec, Hypertension 401.9 [facility] [address] [place] [id number] [place] [address] 71348- 7620 November, Hypertension 401.9 [facility] [id number] [place] [address] 42786- 0518 November, [facility] [address] [address]- 0850 November, [facility] [address] [address]- 3031 November, [facility] [id number] [address]- 3037 Oct, [facility] [id number] [place] [address] 48928- 5941 Oct, [facility] [id number] [address]- 1883 Sep, [facility] [address] [address]- 6274 Sep, [facility] [place] [facility] [address] [id number] [place] [address]- 5326 18 Sep, 2014 [facility] [place] [facility] [address] [id number] [place] [address]- 4647 Sep, [facility] [place] [facility] [address] [id number] [place] [address]- 3098 Sep, [facility] [place] [facility] [address] [id number] [place] [address]- 3053 Sep, [facility] [place] [facility] [address] [id number] [place] [address]- 4475 Sep, [facility] [place] [facility] [address] [id number] [place] [address]- 0677 Sep, [facility] [place] [facility] [address] [facility] [id number] [place] [address]- 5313 Aug, [facility] [place] [facility] [address] [id number] [place] [address]- 4947 Aug, [facility] [place] [facility] [address] [id number] [place] [address]- 8318 Aug, [facility] [place] [facility] [address] [facility] [id number] [place] [address]- 1122 Aug, [facility] [place] [facility] [address] [facility] [id number] [place] [address]- 7996 Aug, [facility] [place] [facility] [address] [id number] [place] [address]- 2441 Aug, [facility] [place] [facility] [address] [id number] [place] [address]- 1985 Jul, [facility] [place] [facility] [address] [id number] [place] [address]- 1899 Jul, [facility] [place] [facility] [address] [id number] [place] 7979 Jul, [facility] [place] [facility] [address] [id number] [address]- 3232 Jul, [facility] [place] [facility] [address] [id number] [place] [address]- 1777 Jul, [facility] [place] [facility] [address] [id number] [place] [address]- 6386 Jul, [facility] [place] [facility] [address] [id number] [place] [address]- 0291 Jul, [facility] [place] [facility] [address] [id number] [place] [address]- 4680 Jul, [facility] [place] [facility] [address] [id number] [place] [address]- 9203 Jul, [facility] [place] [facility] [address] [id number] [place] [address]- 4556 Jul, [facility] [place] [facility] [address] [id number] [place] [address]- 7764 Jun, [facility] [place] [facility] [address] [id number] [place] [address]- 4815 Jun, [facility] [place] [facility] [address] [id number] [place] [address]- 5731 May, [facility] [place] [facility] [address] [id number] [place] [address]- 6738 May, [facility] [place] [facility] [address] [id number] [place] [address]- 4515 Apr, [facility] [place] [facility] [address] [id number] [place] [address]- 7684 Apr, [facility] [place] [facility] [address] [id number] [place] [address]- 4043 Apr, [facility] [place] [facility] [address] [id number] [place] [address]- 7993 Apr, [facility] [place] [facility] [address] [id number] [place] [address]- 7337 Apr, [facility] [place] [facility] [address] [id number] [place] [address]- 4930 Apr, [facility] [place] [facility] [address] [id number] [place] [address]- 6302 Apr, [facility] [place] [facility] [address] [id number] [place] [address]- 7129 Apr, [facility] [place] [facility] [address] [id number] [place] [address]- 4282 Apr, [facility] [place] [facility] [address] [id number] [place] [address]- 0407 Apr, [facility] [place] [facility] [address] [id number] [place] [address]- 2265 Mar, [facility] [place] [facility] [address] [id number] [place] [address]- 0830 Mar, [facility] [place] [facility] [address] [id number] [place] [address]- 1722 November, [facility] [address] [id number] [place] [address]- 2574 November, [facility] [place] [facility] [address] [id number] [place] [address]- 2445 Sep, [facility] [place] [facility] [address] [id number] [place] [address]- 9570 Sep, [facility] [place] [facility] [address] [id number] [place] [address]- 5068 Jun, [facility] [place] [facility] [address] [id number] [place] [address]- 9184 Jun, [facility] [place] [facility] [address] [id number] [place] [address]- 6274 Jun, [facility] [place] [facility] [address] [id number] [place] [address]- 9656 Jun, [facility] [place] [facility] [address] [id number] [place] [address]- 6597 Apr, [facility] [address] [id number] [place] [address]- 8119 Mar, [facility] [place] [facility] [address] [id number] [place] [address]- 3680 Mar, [facility] [place] [facility] [address] [id number] [place] [address]- 2232 Mar, [facility] [place] [facility] [address] [id number] [place] [address]- 8328 Feb, [facility] [place] [facility] [address] [id number] [place] [address]- 2459 Jan, [facility] [place] [facility] [address] [id number] [place] [address]- 7543 November, [facility] [place] [facility] [address] [id number] [place] [address]- 6517 November, [facility] [address] [id number] [place] [address]- 3840 Oct, [facility] [place] [facility] [address] [id number] [place] [address]- 8494 Aug, [facility] [place] [facility] [address] [id number] [place] [address]- 2893 Jun, [facility] [place] [facility] [address] [id number] [place] [address]- 0483 Jun, [facility] [place] [facility] [address] [id number] [place] [address]- 1662 May, [facility] [place] [facility] [address] [id number] [place] [address]- 7126 May, [facility] [place] [facility] [address] [id number] [place] [address]- 8272 May, [facility] [place] [facility] [address] [id number] [place] [address]- 6161 May, [facility] [place] [facility] [address] [id number] [place] [address]- 2078 13 May, 2012 [facility] [place] [facility] [address] [id number] [place] [address]- 8217 13 May, 2012 [facility] [place] [facility] [address] [id number] [place] [address]- 4604 May, [facility] [place] [facility] [address] [id number] [place] [address]- 2788 May, [facility] [place] [facility] [address] [id number] [place] [address]- 6335 May, [facility] [place] [facility] [address] [id number] [place] [address]- 6479 May, [facility] [place] [facility] [address] [id number] [place] [address]- 2586 Apr, [facility] [place] [facility] [address] [id number] [place] [address]- 6091 24 Mar, 2012 [facility] [place] [facility] [address] [id number] [place] [address]- 3249 Mar, [facility] [place] [facility] [address] [id number] [place] [address]- 5291 Feb, [facility] [place] [facility] [address] [facility] [id number] [place] [address]- 3294 November, [facility] [place] [facility] [address] [id number] [place] [address]- 2754 26 Sep, 2011 [facility] [place] [facility] [address] [id number] [place] [address]- 1169 14 Sep, 2011 [facility] [place] [facility] [address] [id number] [place] [address]- 3090 12 Sep, 2011 [facility] [place] [facility] [address] [id number] [place] [address]- 0983 07 Sep, 2011 [facility] [place] [facility] [address] [facility] [id number] [place] [address]- 3195 Jul, [facility] [place] [facility] [address] [facility] [id number] [place] [address]- 5737 Jun, [facility] [address] [facility] [id number] [place] [address]- 9969 Jun, [facility] [address] [facility] [id number] [place] 1655 Jun, [facility] [address] [facility] [id number] [place] [address] 74973- 1815 Apr, [facility] [address] [facility] [id number] [place] [address]- 8552 Jan, [facility] [address] [facility] [id number] [place] [address] 22510- 9997 Dec, [facility] [address] [address]- 9383 Aug, [facility] [id number] [address]- 6308 May, [facility] [id number] [address]- 5525 May, [facility] [id number] [address]- 6134 May, [facility] [id number] [address]- 7093 May, [facility] [id number] [address]- 0757 Apr, [facility] [address] [place] [id number] [address]- 7300 Aug, [facility] [address] [address]- 3621 Jul, [facility] [address] [id number] [address]- 5625 Dec, IMMUNIZATIONS No Known Immunizations SOCIAL HISTORY Never Assessed REASON FOR VISIT med refill PLAN OF CARE VITAL SIGNS MEDICATIONS Medication [...]
--- OUTSIDE RECORDS SUMMARY | 2018-09-28 08:58 | XMS REPORT ---
Author Author MELI MELARA Organization [facility] Address [address] [place] [address] Care Team Providers Care Dealer Compliance Representative Name Role Phone KELTON MELI Unavailable PROBLEMS Type Condition ICD9-CM Code NTZ34-OA Code Onset Dates Condition Status SNOMED Code Problem VANESSA (obstructive sleep apnea) G47.33 Active 94542364 Problem Other chronic pain G89.29 Active 07817279 Problem Hypertension, benign I10 Active 95526536 Problem Essential hypertension I10 Active 25750248 Problem Hypercholesterolemia E78.0 Active 63472969 ALLERGIES Substance Reaction Event Type Date Status Sinemet Unknown Drug Allergy Sep, Active Lipitor Unknown Drug Allergy Sep, Active ENCOUNTERS Encounter Location Date Diagnosis [place] [id number] [place] [address]164- 4384 Jan, [place] [address] [address] November, Hypertension, benign I10 [place] [address] 32988- 9369 Oct, [place] [id number] [place] [address] 30075- 3739 Sep, Nocturnal polyuria R35.1 and Dysuria R30.0 [facility] [id number] [place] [address] 77117- 7207 Jun, Hypertension, benign I10 [place] [address] 60[address]- 6544 Apr, Encounter for immunization Z23 [facility] [address] [address]- [address] Jan, Hypertension, benign I10 and VANESSA (obstructive sleep apnea) G47.33 [place] [id number] [place] [address] 57021- 9679 Jan, Hypertension, benign I10 and VANESSA (obstructive sleep apnea) G47.33 [place] [id number] [place] [address] 05890- 0992 Jan, [place] [id number] [place] [address] 97978- 7683 November, Hypertension, benign I10 [place] [id number] [place] [address] 14687- 9661 Aug, [place] [address] 92699- 2784 Jul, Other chronic pain G89.29 and Pain in left shoulder M25.512 [place] [address] 94594- 7146 Jul, Other chronic pain G89.29 ; Pain in left shoulder M25.512 and Hypertension, benign I10 [place] [id number] [place] [address] 25244- 6379 Jun, [place] [id number] [place] [address] 19374- 4156 Jun, Hypertension, benign I10 [place] [id number] [place] [address] 98338- 7135 Apr, Essential hypertension I10 and Pure hypercholesterolemia E78.00 [place] [id number] [place] [address] 57622- 8194 Feb, [place] [id number] [place] [address] 33280- 8981 Jan, [place] [id number] [place] [address] 69847- 7612 Jan, [place] [id number] [place] [address] 26504- 5941 Jan, Benign non-nodular prostatic hyperplasia with lower urinary tract symptoms N40.1 and Hypertension, benign I10 [facility] [id number] [place] [address] 76792- 5667 Jan, Benign non-nodular prostatic hyperplasia with lower urinary tract symptoms N40.1 and Hypertension, benign I10 [facility] [id number] [place] [address] 41054- 1673 13 Dec, 2015 [facility] IN [facility] [address] [address] -[address]44 November, Contact dermatitis, unspecified contact dermatitis type, unspecified trigger L25.9 [facility] [address] 76293- 0574 Oct, [facility] [id number] [place] [address] 37230- 3291 Oct, Hypertension, benign I10 [facility] [id number] [place] [address] 80301- 1291 Sep, [facility] [id number] [place] [address] 09947 -4305 Aug, Left shoulder pain M25.512 [facility] [id number] [place] [address] 16005- 3013 Jul, Hypertension, benign I10 [facility] [id number] [place] [address] 72280- 7090 Jul, Hypertension 401.9 [facility] [address] 36316- 9542 May, Hypertension, benign I10 ; Anxiety F41.9 and Hypercholesterolemia E78.0 [facility] [address] 10200- 8164 May, [facility] [id number] [place] [address] 46210- 6555 Apr, [facility] [address] 89127- 2364 Apr, Hypertension, benign I10 [facility] [address] [address]- 5194 Apr, Hypertension, benign I10 [facility] [address] 5149 Apr, Encounter for immunization Z23 [facility] [id number] [place] [address] 46915- 7850 Mar, Hypertension 401.9 [facility] [id number] [place] [address] 851214- 6659 Feb, HTN (hypertension) 401.9 [facility] [id number] [place] [address] 79755- 8082 Jan, HTN (hypertension) 401.9 [facility] [id number] [address]- 8715 Dec, Hypertension 401.9 [facility] [id number] [place] [address] 45206- 0127 November, Hypertension 401.9 [facility] [id number] [place] [address] 47994- 5548 November, [facility] [address] [address]- 8386 November, [facility] [address] [address]- 5966 November, [facility] [address] [address]- 7417 Oct, [facility] [address] [address]- 1621 Oct, [facility] [address] [address]- 3269 Sep, [facility] [address] [address]- 3223 Sep, [facility] [place] [facility] [address] [id number] [place] [address]- 5155 18 Sep, 2014 [facility] [place] [facility] [address] [id number] [place] 8919 Sep, [facility] [place] [facility] [address] [id number] [place] [address]48 Sep, [facility] [place] [facility] [address] [id number] [place] [address]- 4929 Sep, [facility] [place] [facility] [address] [id number] [place] [address]- 6274 Sep, [facility] [place] [facility] [address] [id number] [place] [address]- 4589 Sep, [facility] [place] [facility] [address] [facility] [id number] [place] [address]- 1666 Aug, [facility] [place] [facility] [address] [id number] [place] [address]- 5727 Aug, [facility] [place] [facility] [address] [id number] [place] [address]- 7036 Aug, [facility] [place] [facility] [address] [facility] [id number] [place] [address]- 8046 Aug, [facility] [place] [facility] [address] [facility] [id number] [place] [address]- 0806 Aug, [facility] [place] [facility] [address] [id number] [place] [address]- 2011 Aug, [facility] [place] [facility] [address] [id number] [place] [address]- 7263 Jul, [facility] [place] [facility] [address] [id number] [place] [address]- 9827 Jul, [facility] [place] [facility] [address] [facility] [id number] [place] 6327 Jul, [facility] [place] [facility] [address] [id number] [address]- 5050 Jul, [facility] [place] [facility] [address] [id number] [place] [address]- 2870 Jul, [facility] [place] [facility] [address] [id number] [place] [address]- 0390 Jul, [facility] [place] [facility] [address] [id number] [place] [address]- 3917 Jul, [facility] [place] [facility] [address] [id number] [place] [address]- 8765 Jul, [facility] [place] [facility] [address] [id number] [place] [address]- 9592 Jul, [facility] [place] [facility] [address] [id number] [place] [address]- 6248 Jul, [facility] [place] [facility] [address] [id number] [place] [address]- 0541 Jun, [facility] [place] [facility] [address] [id number] [place] [address]- 1250 Jun, [facility] [place] [facility] [address] [id number] [place] [address]- 9581 May, [facility] [place] [facility] [address] [id number] [place] [address]- 6800 May, [facility] [place] [facility] [address] [id number], [place] [address]- 9316 Apr, [facility] [place] [facility] [address] [id number], [place] [address]- 2595 Apr, [facility] [place] [facility] [address] [id number] [place] [address]- 0561 Apr, [facility] [place] [facility] [address] [id number] [place] [address]- 8559 Apr, [facility] [place] [facility] [address] [id number] [place] [address]- 1228 Apr, [facility] [place] [facility] [address] [id number] [place] [address]- 9432 Apr, [facility] [place] [facility] [address] [id number] [place] [address]- 0868 Apr, [facility] [place] [facility] [address] [id number] [place] [address]- 1436 Apr, [facility] [place] [facility] [address] [id number] [place] [address]- 7734 Apr, [facility] [place] [facility] [address] [id number] [place] [address]- 4228 Apr, [facility] [place] [facility] [address] [id number] [place] [address]- 6602 Mar, [facility] [place] [facility] [address] [id number] [place] [address]- 0305 Mar, [facility] [place] [facility] [address] [id number] [place] [address]- 8714 November, [facility] [place] [facility] [address] [id number] [place] [address]- 8694 November, [facility] [place] [facility] [address] [id number] [place] [address]- 8218 Sep, [facility] [place] [facility] [address] [id number] [place] [address]- 3931 Sep, [facility] [place] [facility] [address] [id number] [place] [address]- 9468 Jun, [facility] [place] [facility] [address] [id number] [place] [address]- 8831 Jun, [facility] [place] [facility] [address] [id number] [place] [address]- 0395 Jun, [facility] [place] [facility] [address] [id number] [place] [address]- 2546 Jun, [facility] [place] [facility] [address] [id number] [place] [address]- 1846 Apr, [facility] [address] [id number] [place] [address]- 5234 Mar, [facility] [place] [facility] [address] [id number] [place] [address]- 6151 Mar, [facility] [place] [facility] [address] [id number] [place] [address]- 4396 Mar, [facility] [place] [facility] [address] [id number] [place] [address]- 8417 Feb, [facility] [place] [facility] [address] [id number] [place] [address]- 2263 Jan, [facility] [place] [facility] [address] [id number] [place] [address]- 7191 November, [facility] [place] [facility] [address] [id number] [place] [address]- 8472 November, [facility] [place] [facility] [address] [id number] [place] [address]- 8173 Oct, [facility] [place] [facility] [address] [id number] [place] [address]- 7290 Aug, [facility] [place] [facility] [address] [id number] [place] [address]- 8297 Jun, [facility] [place] [facility] [address] [id number], [place] [address]- 5291 Jun, [facility] [place] [facility] [address] [id number], [place] [address]- 2831 May, [facility] [place] [facility] [address] [id number] [place] [address]- 8930 May, [facility] [place] [facility] [address] [id number] [place] [address]- 2186 May, [facility] [place] [facility] [address] [id number] [place] 1999 May, [facility] [place] [facility] [address] [id number] [place] [address]- 7040 13 May, 2012 [facility] [place] [facility] [address] [id number] [place] [address]- 8789 13 May, 2012 [facility] [place] [facility] [address] [id number] [place] [address]- 4272 May, [facility] [place] [facility] [address] [id number] [place] [address]- 2545 May, [facility] [place] [facility] [address] [id number] [place] [address]- 3339 May, [facility] [place] [facility] [address] [id number] [place] [address]- 6527 May, [facility] [place] [facility] [address] [id number] [place] [address]- 9098 Apr, [facility] [place] [facility] [address] [id number] [place] [address]- 5552 24 Mar, 2012 [facility] [place] [facility] [address] [id number] [place] [address]- 6835 Mar, [facility] [place] [facility] [address] [id number] [place] [address]- 2778 Feb, [facility] [place] [facility] [address] [id number] [place] [address]- 5120 November, [facility] [place] [facility] [address] [id number] [place] [address]- 3591 Sep, [facility] [place] [facility] [address] [id number] [place] [address]- 9870 14 Sep, 2011 [facility] [place] [facility] [address] [id number] [place] [address]- 9666 12 Sep, 2011 [facility] [place] [facility] [address] [id number] [place] [address]- 1693 07 Sep, 2011 [facility] [place] [facility] [address] [id number] [place] [address]- 3881 Jul, [facility] [address] [id number] [place] [address]- 7662 Jun, [facility] [address] [facility] [id number] [place] 6543 Jun, [facility] [address] [facility] [id number] [place] 1174 Jun, [facility] [address] [facility] [id number] [place] [address]- 5347 Apr, [facility] [address] [id number] [place] [address]- 1540 Jan, [facility] [address] [facility] [id number] [place] [address]- 7050 Dec, [facility] [address] [facility] [id number] [place] [address]- 3151 15 Aug, 2010 [facility] [address] [facility] [id number], [place] [address]- 5278 May, [facility] [address] [facility] [id number] [place] [address]- 0587 May, [facility] [id number], [place] [address]- 4112 May, [facility] [id number] [address]- 9375 May, [facility] [address] [facility] [id number], [place] [address]- 2887 Apr, [facility] [address] [facility] [id number], [place] [address]- 9106 Aug, [facility] [address] [facility] [id number], [place] [address]- 7293 Jul, [facility] [address] 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 PLAN OF CARE VITAL SIGNS Height 70 in 2017-09-04 Weight 201 lbs 2017-09-04 Temperature 98.4 degrees Fahrenheit 2017-09-04 Heart Rate 62 bpm 2017-09-04 Respiratory Rate 18 2017-09-04 BMI 28.84 kg/m2 2017-09-04 Blood pressure systolic 132 mmHg 2017-09-04 Blood pressure diastolic 92 mmHg 2017-09-04 MEDICATIONS Medication Instructions Dosage Frequency Start Date End Date Duration Status Fish Oil 1 gram 3 capsule by Oral route 1 time per day November, Active Finasteride 5 mg Orally Once a day 1 tablet 24h Sep, Feb, 30 day(s) Active Amlodipine Besylate 10 MG TAKE ONE TABLET BY MOUTH ONCE DAILY (NEEDS APPOINTMENT FOR FURTHER REFILLS) 30 Active Atenolol 100 MG TAKE ONE TABLET BY MOUTH ONCE DAILY (NEEDS APPOINTMENT FOR FURTHER REFILLS) 30 Active Valium 10 MG Orally Twice a day 1 tablet as needed 12h Aug, 28 days Active Hydrochlorothiazide 12.5 MG Orally Once a day 1 capsule in the morning 24h Sep, 30 day(s) Active RESULTS No Results PROCEDURES Procedure Date Ordered Result Body Site [facility] VISIT ESTABLISHED PATIENT September 04, 2017 VENKANG, ROUTINE* September 04, 2017 LAB [facility] September 04, 2017 INSTRUCTIONS MEDICATIONS ADMINISTERED No Known Medications MEDICAL (GENERAL) HISTORY Type Description Date Medical History hypertension Medical History hereditary spherocytosis Medical History hyperlipidemia Medical History insomnia Medical History testicular cancer Medical History restless leg syndrome Medical History Gout Medical History allergic rhinitis Medical History anxiety Surgical History orchiectomy with radiation 1984 Hospitalization History surgery
--- OUTSIDE RECORDS SUMMARY | 2018-09-28 08:59 | XMS REPORT ---
Author Author MELI MELARA Organization [facility] Address [address] [place] [address] Care Team Providers Care Telescope Maintenance Name Role Phone KELTON MELI Unavailable PROBLEMS Type Condition ICD9-CM Code OBI75-SR Code Onset Dates Condition Status SNOMED Code Problem VANESSA (obstructive sleep apnea) G47.33 Active 17241758 Problem Other chronic pain G89.29 Active 52314364 Problem Hypertension, benign I10 Active 84825448 Problem Essential hypertension I10 Active 74486312 Problem Hypercholesterolemia E78.0 Active 94839771 ALLERGIES No Information ENCOUNTERS Encounter Location Date Diagnosis [place] [address] [address] November, Hypertension, benign I10 [place] [address] 76[address]- 4[address] Oct, [place] [address] 11584- 8465 Sep, Nocturnal polyuria R35.1 and Dysuria R30.0 [place] [address] 77976- 3888 Jun, Hypertension, benign I10 [place] [address] 48157- 9140 Apr, Encounter for immunization Z23 [place] [address] 57653- 7333 Jan, Hypertension, benign I10 and VANESSA (obstructive sleep apnea) G47.33 [place] [address] 10922- 9425 Jan, Hypertension, benign I10 and VANESSA (obstructive sleep apnea) G47.33 [place] [address] [place] [id number] [place] [address] 34301- 4370 Jan, [facility] [address] [place] [id number] [place] [address] 92365- 0012 November, Hypertension, benign I10 [facility] [address] [place] [id number] [place] [address] 52103- 5708 Aug, [facility] [address] [place] [id number] [place] [address] 41648- 1879 Jul, Other chronic pain G89.29 and Pain in left shoulder M25.512 [facility] [address] [place] [id number] [place] [address] 87467- 2913 Jul, Other chronic pain G89.29 ; Pain in left shoulder M25.512 and Hypertension, benign I10 [facility] [address] [place] [id number] [place] [address] 95729- 2094 Jun, [facility] [address] [place] [id number] [place] [address] 89820- 3709 Jun, Hypertension, benign I10 [facility] [address] [place] [id number] [place] [address] 88735- 1456 Apr, Essential hypertension I10 and Pure hypercholesterolemia E78.00 [facility] [address] [place] [id number] [place] [address] 59279- 3358 Feb, [facility] [address] [place] [id number] [place] [address] 73892- 0383 Jan, [facility] [address] [place] [id number] [place] [address] 12112- 7577 Jan, [facility] [address] [place] [id number] [place] [address] 87827- 1296 Jan, Benign non-nodular prostatic hyperplasia with lower urinary tract symptoms N40.1 and Hypertension, benign I10 [facility] [id number] [place] [address] 43003- 1423 14 Jan, 2016 Benign non-nodular prostatic hyperplasia with lower urinary tract symptoms N40.1 and Hypertension, benign I10 [facility] [address] [place] [id number] [place] [address] 84388- 3265 Dec, [facility] [address] [place] [id number] [place] [address] 68343 -2128 November, Contact dermatitis, unspecified contact dermatitis type, unspecified trigger L25.9 [facility] [address] 18253- 1887 Oct, [facility] [address] [place] [id number] [place] [address] 70911- 7110 Oct, Hypertension, benign I10 [place] [address] 45607- 4062 Sep, [facility] [address] [place] [id number] [place] [address] 27316 -3801 Aug, Left shoulder pain M25.512 [facility] [address] [place] [id number] [place] [address] 43955- 9723 Jul, Hypertension, benign I10 [place] [address] [place] [id number] [place] [address] 17286- 3616 Jul, Hypertension 401.9 [place] [address] [place] [id number] [place] [address] 09838- 4507 May, Hypertension, benign I10 ; Anxiety F41.9 and Hypercholesterolemia E78.0 [place] [address] [place] [id number] [place] [address] 69884- 1648 May, [facility] [address] [place] [id number] [place] [address] 82875- 4714 Apr, [place] [address] [place] [id number] [place] [address] 54982- 6750 Apr, Hypertension, benign I10 [facility] [address] [place] [id number] [place] [address] 06006- 6404 Apr, Hypertension, benign I10 [facility] [address] [address]- 7768 Apr, Encounter for immunization Z23 [facility] [address] [address]- 7075 Mar, Hypertension 401.9 [facility] [address] [address]164 Feb, HTN (hypertension) 401.9 [facility] [address] [address]- 7759 Jan, HTN (hypertension) 401.9 [facility] [id number] [place] [address] 441185- 5507 Dec, Hypertension 401.9 [facility] [address] [address]- 4270 November, Hypertension 401.9 [facility] [address] [address]- 4242 November, [facility] [address] [address]- 2071 November, [facility] [address] [address]- 5933 November, [facility] [address] [address]- 0685 Oct, [facility] [address] [address]- 2664 Oct, [facility] [address] [place] [id number] [address]- 4408 Sep, [facility] [address] 6117 Sep, [facility] [address] [place] [id number] 6374 Sep, [facility] [address] [place] [id number] 9187 Sep, [facility] [place] [facility] [address] [id number] [place] [address]- 4472 Sep, [facility] [place] [facility] [address] [id number] [place] [address]- 0986 Sep, [facility] [place] [facility] [address] [id number] [place] [address]- 5202 Sep, [facility] [place] [facility] [address] [id number] [place] [address]- 6813 Sep, [facility] [place] [facility] [address] [id number] [place] [address]- 1984 Aug, [facility] [place] [facility] [address] [id number] [place] [address]- 7396 Aug, [facility] [place] [facility] [address] [id number] [place] [address]- 3378 Aug, [facility] [place] [facility] [address] [id number] [place] [address]- 0675 Aug, [facility] [place] [facility] [address] [id number] [place] [address]- 2090 Aug, [facility] [place] [facility] [address] [id number] [place] [address]- 3617 Aug, [facility] [place] [facility] [address] [id number] [place] [address]- 5961 Jul, [facility] [place] [facility] [address] [id number] [address]- 4568 Jul, [facility] [place] [facility] [address] [id number] [place] [address]- 1085 Jul, [facility] [place] [facility] [address] [id number] [place] [address]- 7112 Jul, [facility] [place] [facility] [address] [facility] [id number] [place] [address]- 9538 Jul, [facility] [place] [facility] [address] [id number] [place] [address]- 9756 Jul, [facility] [address] [id number] [place] [address]- 8243 Jul, [facility] [place] [facility] [address] [id number] [place] [address]- 9277 Jul, [facility] [place] [facility] [address] [id number] [place] [address]- 0734 Jul, [facility] [place] [facility] [address] [id number] [place] [address]- 7011 Jul, [facility] [place] [facility] [address] [id number] [place] [address]- 1161 Jun, [facility] [place] [facility] [address] [id number] [place] [address]- 6437 Jun, [facility] [place] [facility] [address] [id number] [place] [address]- 3943 May, [facility] [place] [facility] [address] [id number] [place] [address]- 8677 May, [facility] [place] [facility] [address] [id number] [place] [address]- 0455 Apr, [facility] [place] [facility] [address] [id number] [place] [address]- 7250 Apr, [facility] [place] [facility] [address] [id number] [place] [address]- 1179 Apr, [facility] [place] [facility] [address] [id number] [place] [address]- 5380 Apr, [facility] [place] [facility] [address] [id number] [place] [address]- 4415 Apr, [facility] [place] [facility] [address] [id number] [place] [address]- 1391 Apr, [facility] [place] [facility] [address] [id number] [place] [address]- 9701 Apr, [facility] [place] [facility] [address] [id number] [place] [address]- 9221 Apr, [facility] [place] [facility] [address] [id number] [place] [address]- 5687 Apr, [facility] [place] [facility] [address] [id number] [place] [address]43 Apr, [facility] [place] [facility] [address] [id number] [place] [address]- 8229 Mar, [facility] [place] [facility] [address] [id number] [place] [address]- 5033 Mar, [facility] [place] [facility] [address] [id number] [place] [address]- 0529 November, [facility] [place] [facility] [address] [id number] [place] [address]- 4691 November, [facility] [place] [facility] [address] [id number] [place] [address]- 4107 Sep, [facility] [place] [facility] [address] [id number] [place] [address]- 5256 Sep, [facility] [place] [facility] [address] [id number] [place] [address]21 Jun, [facility] [place] [facility] [address] [id number] [place] [address]- 3537 Jun, [facility] [place] [facility] [address] [id number] [address]- 6985 Jun, [facility] [place] [facility] [address] [id number] [place] [address]- 9808 Jun, [facility] [place] [facility] [address] [id number] [place] [address]- 3309 Apr, [facility] [place] [facility] [address] [id number] [place] [address]- 6340 24 Mar, 2013 [facility] [place] [facility] [address] [id number] [address]- 1564 Mar, [facility] [address] [id number] [place] [address]- 1273 Mar, [facility] [place] [facility] [address] [id number] [place] [address]- 2784 Feb, [facility] [place] [facility] [address] [id number] [place] [address]- 6221 Jan, [facility] [place] [facility] [address] [id number] [place] [address]- 6002 November, [facility] [place] [facility] [address] [id number] [place] [address]- 6408 November, [facility] [place] [facility] [address] [id number] [place] [address]- 1899 Oct, [facility] [address] [facility] [id number] [place] [address]- 2982 Aug, [facility] [place] [facility] [address] [id number] [place] [address]- 8916 Jun, [facility] [address] [id number] [place] [address]- 6237 Jun, [facility] [place] [facility] [address] [facility] [id number] [place] [address]- 1471 May, [facility] [place] [facility] [address] [id number] [place] [address]- 2036 May, [facility] [place] [facility] [address] [id number] [place] [address]- 6189 May, [facility] [place] [facility] [address] [id number] [place] [address]- 0725 May, [facility] [place] [facility] [address] [id number] [place] [address]- 6913 May, [facility] [place] [facility] [address] [facility] [id number] [place] [address]- 3665 May, [facility] [place] [facility] [address] [id number] [place] [address] 2546 May, [facility] [place] [facility] [address] [id number] [place] [address]- 9506 May, [facility] [place] [facility] [address] [id number] [place] [address]- 2546 May, [facility] [place] [facility] [address] [id number] [place] [address]- 2546 May, [facility] [place] [facility] [address] [id number] [place] [address]- 2546 Apr, [facility] [place] [facility] [address] [id number] [place] [address]- 0946 Mar, [facility] [place] [facility] [address] [id number] [place] [address] 2546 Mar, [facility] [place] [facility] [address] [id number] [place] [address]- 4286 Feb, [facility] [place] [facility] [address] [id number] [place] [address]- 3586 November, [facility] [place] [facility] [address] [id number] [place] [address]- 4356 Sep, [facility] [place] [facility] [address] [id number] [place] [address]- 1916 14 Sep, 2011 [facility] [place] [facility] [address] [id number] [place] [address]- 8056 Sep, [facility] [place] [facility] [address] [id number] [place] [address] 2546 Sep, [facility] [place] [facility] [address] [id number] [place] [address]- 2546 Jul, [facility] [place] [facility] [address] [id number] [place] [address]- 2546 Jun, [facility] [place] [facility] [address] [id number] [place] [address]- 0103 Jun, [facility] [address] [facility] [id number] [place] [address]- 4637 Jun, [facility] [address] [address]- 8484 Apr, [facility] [address] [address]- 5612 Jan, [facility] [address] [address]- 2825 Dec, [facility] [address] [facility] [id number] [place] [address]- 3725 Aug, [facility] [id number] [place] [address] 321708- 7066 May, [facility] [address] [address]- 9784 May, [facility] [address] [address]- 0068 May, [facility] [address] [address]- 6711 May, [facility] [address] [address]- 7798 Apr, [facility] [address] [address]- 8904 Aug, [facility] [address] [place] [id number] [address]- 5043 Jul, [facility] [address] [place] [id number] [address]- 1996 Dec, IMMUNIZATIONS No Known Immunizations SOCIAL HISTORY Never Assessed REASON FOR VISIT Controlled Refill Request PLAN OF CARE VITAL SIGNS MEDICATIONS Medication Instructions Dosage Frequency Start Date End Date Duration Status Valium 10 MG Orally Twice a day 1 tablet as needed 12h 02 Aug, 2014 28 days Active RESULTS No Results PROCEDURES [...]
--- OUTSIDE RECORDS SUMMARY | 2018-09-28 09:01 | XMS REPORT | Continuity of Care Document ---
Author Author Formerly [facility] Address Unknown Phone Unavailable Allergies Active Description Code Type Severity Reaction Onset Reported/Identified Relationship to Patient Clinical Status Yes Sinemet Drug Allergy N/A N/A 12/18/2010 Yes Sinemet Drug Allergy 12/18/2010 Yes Norvasc 5 mg tablet Drug Allergy N/A N/A 07/18/2011 Yes Norvasc 5 mg tablet Drug Allergy 07/18/2011 Yes Lipitor 10 mg Tablet Drug Allergy 11/11/2011 Yes No Known Drug Allergies [id number] Drug Allergy Unknown N/A 11/03/2017 Medications There [...] BERKLEY K NODX NO DIAGNOSIS 03/04/2010 [facility] NODX NO DIAGNOSIS 03/04/2010 [facility] [employer], MELI Rashid NODX NO DIAGNOSIS 03/04/2010 CHARMAINE [...] BERKLEY MATTHEWS DO 272.4 HYPERLIPIDEMIA 08/20/2010 [facility] [employer], MELI T 272.4 HYPERLIPIDEMIA 08/20/2010 MELI MELARA [...] 333.94 RESTLESS LEGS SYNDROME (RLS) 11/22/2010 NAMRATA LUNYD, TAZ Watson 333.94 RESTLESS LEGS SYNDROME (RLS) [...] MELARA APRN 110.1 DERMATOPHYTOSIS OF NAIL 01/15/2011 MLEI MELARA APRN 274.9 GOUT UNSPECIFIED 01/15/2011 MELI MELARA APRN 734 FLAT FOOT 01/15/2011 KEYLA MONTANO APRN R 110.1 DERMATOPHYTOSIS OF NAIL 01/15/2011 KEYLA MONTANO APRN R 274.9 GOUT UNSPECIFIED 01/15/2011 [facility] [employer], KEYLA R 734 FLAT FOOT 01/15/2011 MELI [...] MELARA APRN 550.90 HERNIA INGUINAL 06/14/2012 [facility] [employer], KEYLA R 550.90 HERNIA INGUINAL 06/14/2012 MELI [...] DO, BERKLEY K V04.81 FLU SHOT 03/29/2013 MLEI MELARA APRN V04.81 FLU SHOT 03/29/2013 MELI [...] TOE(S) ALONE WITHOUT COMPLICATION 04/26/2014 WHITE DDS, CAMILLA J V06.1 TDAP DX 04/26/2014 MELI MELARA APRN 892.0 OPEN WOUND OF FOOT EXCEPT TOE(S) ALONE WITHOUT COMPLICATION 04/26/2014 MELI MELARA APRN V06.1 TDAP DX 04/26/2014 MATTHEWS DO, BERKELY K 892.0 OPEN WOUND OF FOOT EXCEPT [...] ALLERGIC RHINITIS DUE TO POLLEN 08/07/2014 [facility] [employer], MELI T 300.00 ANXIETY UNSPEC 08/07/2014 BERKLEY MATTHEWS DO K 300.00 ANXIETY UNSPEC 08/07/2014 [employer], MELI T 300.00 ANXIETY UNSPEC 08/07/2014 BERKLEY MATTHEWS DO K 300.00 ANXIETY UNSPEC 08/07/2014 KELTON HANCOCKN, MELI T 300.00 ANXIETY UNSPEC 08/07/2014 KELTON HANCOCKN, MELI T 300.00 ANXIETY UNSPEC 08/18/2014 [employer], MELI T 786.59 OTHER CHEST PAIN 08/18/2014 BERKLEY MATTHEWS DO K 786.59 OTHER CHEST PAIN 08/18/2014 [employer], MELI T 786.59 OTHER CHEST PAIN 08/18/2014 [employer], MELI T 786.59 OTHER CHEST PAIN 10/01/2017 MARTA LUNDY, VANESSA Dey Ot N50.811 RIGHT TESTICULAR PAIN 10/01/2017 VANESSA LOZANO MD Ot Z85.47 PERSONAL HISTORY OF MALIGNANT NEOPLASM O 10/06/2017 VANESSA LOZANO MD Ot N50.811 RIGHT TESTICULAR PAIN 10/06/2017 VANESSA LOZANO MD Ot Z85.47 PERSONAL HISTORY OF MALIGNANT NEOPLASM O 10/23/2017 VANESSA LOZANO MD Ot N50.811 RIGHT TESTICULAR PAIN 10/23/2017 AVNESSA LOZANO MD, Ot Z85.47 PERSONAL HISTORY OF [...] Z85.47 PERSONAL HISTORY OF MALIGNANT NEOPLASM O 11/05/2017 CHEMA BECERRIL DO Ot I10 ESSENTIAL (PRIMARY) HYPERTENSION 11/05/2017 CHEMA BECERRIL DO Geronimo Ot K40.31 UNILATERAL INGUINAL HERNIA, W OBST, W/O 11/05/2017 CHEMA BECERRIL DO Ot Z79.899 OTHER GROUP HOME (CURRENT) DRUG THERAPY 11/05/2017 CHEMA BECERRIL DO Geronimo Ot Z87.891 PERSONAL HISTORY OF NICOTINE DEPENDENCE 11/11/2017 CHEMA BECERRIL DO Geronimo Ot I10 ESSENTIAL (PRIMARY) HYPERTENSION 11/11/2017 RA BECERRIL DOTOAN Melton Ot K40.31 UNILATERAL INGUINAL HERNIA, W OBST, W/O 11/11/2017 CHEMA BECERRIL DO Geronimo Ot Z79.899 OTHER MANAGER TEST (CURRENT) DRUG THERAPY 11/11/2017 CHEMA BECERRIL DO Geronimo Ot Z87.891 PERSONAL HISTORY OF NICOTINE DEPENDENCE 09/21/2018 CHEMA BECERRIL DO Geronimo Ot Z01.818 ENCOUNTER FOR OTHER PREPROCEDURAL EXAMIN Procedures Code Description Performed By Performed [facility] S Taz Curry 05/10/2012 74601 XRAY SINUSES PARANASAL COMP MIN 3 VIEWS 05/24/2012 89223 CMP 03/04/2013 57730 LIPID PANEL 03/04/2013 61589 A1C (IN-HOUSE) 03/04/2013 81588 CBC 03/04/2013 25001 ROUTINE VENIPUNCTURE 03/11/2013 15659 A1C (IN-HOUSE) 03/11/2013 05340 CBC 03/11/2013 59847 CMP 03/11/2013 93241 LIPID PANEL 03/11/2013 6016813 GFR CALC (RESULT ONLY) 03/11/2013 2000 BLOOD PRESSURE CHECK 08/18/2014 96915 OXIMETRY 08/18/2014 93645 ROUTINE VENIPUNCTURE 10/17/2014 73213 TESTOSTERONE TOTAL- MALES 10/17/2014 Results Test Result [...] 09:15 PSA, TOTAL 1.8 ng/mL < OR=4.0 Methicillin resistant Staphylococcus aureus (MRSA) screening culture - 08:30 Methicillin resistant Staphylococcus aureus (MRSA) screening culture NEG NRG CMP - 06/18/18 07:58 GLUCOSE 109 mg/dL 65-99 UREA NITROGEN (BUN) 19 mg/dL 7-25 CREATININE 1.31 mg/dL 0.70-1.25 eGFR NON-AFR. CHINESE 55 mL/min/1.73m2 > OR=60 eGFR 64 mL/min/1.73m2 > OR=60 BUN/CREATININE RATIO 15 (calc) 6-22 SODIUM 139 mmol/L 135-146 POTASSIUM 4.9 mmol/L 3.5-5.3 CHLORIDE 105 mmol/L 98-110 CARBON DIOXIDE 28 mmol/L 20-32 CALCIUM 10.1 mg/dL 8.6-10.3 PROTEIN, TOTAL 8.6 g/dL 6.1-8.1 ALBUMIN 4.6 g/dL 3.6-5.1 GLOBULIN 4.0 g/dL (calc) 1.9-3.7 ALBUMIN/GLOBULIN RATIO 1.2 (calc) 1.0-2.5 BILIRUBIN, TOTAL 0.6 mg/dL 0.2-1.2 ALKALINE PHOSPHATASE 83 U/L 40-115 AST 40 U/L 10-35 ALT 71 U/L 9-46 Encounters ACCT No. Visit Date/Time Discharge Status Pt. Type Provider Facility Loc./Unit Complaint [id number] 10/17/2014 08:09:00 10/17/2014 23:59:59 CLS Outpatient MELI MELARA APRN [id number] 10/09/2014 08:44:00 10/09/2014 23:59:59 CLS Outpatient MELI MELARA APRN [id number] 09/26/2014 09:49:00 09/26/2014 23:59:59 CLS Outpatient BERKLEY MATTHEWS DO [id number] 08/18/2014 11:17:00 08/18/2014 23:59:59 CLS Outpatient MELI MELARA APRN [id number] 08/18/2014 08:28:00 08/18/2014 23:59:59 CLS Outpatient BERKLEY MATTHEWS DO [id number] 08/07/2014 14:59:00 08/07/2014 23:59:59 CLS Outpatient MELI MELARA APRN Gay [id number] 05/22/2014 09:30:00 05/22/2014 23:59:59 CLS Outpatient CAMILLA GIMENEZ DDS Selvin [id number] 05/10/2014 17:50:00 05/10/2014 23:59:59 CLS Outpatient KELTON HANCOCKN MELI Rashid [id number] 05/04/2014 08:48:00 05/04/2014 23:59:59 CLS Outpatient [facility] ADITYA [place] [id number] 04/26/2014 17:56:00 04/26/2014 23:59:59 CLS Outpatient KELTON HANCOCKMELI Michele [id number] 04/24/2014 13:09:00 04/24/2014 23:59:59 CLS Outpatient MONTANO [facility]LA Michele [id number] 11/23/2013 12:09:00 11/23/2013 23:59:59 CLS Outpatient [facility] Michele [id number] 06/10/2013 11:25:00 06/10/2013 23:59:59 CLS Outpatient KELTON HANCOCKMELI Michele [id number] 03/29/2013 08:32:00 03/29/2013 23:59:59 CLS Outpatient BERKLEY MATTHEWS DO [id number] 07/20/2012 12:10:00 07/20/2012 23:59:59 CLS Outpatient TAZ CURRY MD [id number] 06/14/2012 11:14:00 06/14/2012 23:59:59 CLS Outpatient [id number] 05/10/2012 10:06:00 05/10/2012 23:59:59 CLS Outpatient [facility] Michele [id number] 03/11/2013 07:57:00 Document Registration [id number] 03/04/2013 10:46:00 Document Registration [id number] 11/08/2012 08:49:00 Document Registration [id number] 09/01/2018 13:40:00 09/01/2018 23:59:59 CLS Outpatient MELI MELARA APRN [facility] [id number] 06/18/2018 08:00:00 Document Registration [id number] 09/04/2017 08:20:00 Document Registration [id number] 09/21/2018 05:42:00 09/21/2018 10:55:00 DIS Outpatient CHEMA BECERRIL DO [facility] PREOP COLONOSCOPY [id number] 11/05/2017 08:04:00 11/05/2017 14:05:00 DIS Outpatient CHEMA BECERRIL DO [facility] SDC RECURRENT LEFT INGUINAL HERNIA [id number] 11/03/2017 05:41:00 11/03/2017 14:14:00 DIS Outpatient CHEMA BECERRIL DO [facility] PREOP RECURRENT LEFT INGUINAL HERNIA [id number] 09/30/2017 08:21:00 09/30/2017 23:59:59 CLS Outpatient VANESSA LOZANO MD [facility] RAD LT TESTICULAR PAIN [id number] 02/24/2017 07:14:00 02/24/2017 23:59:59 CLS Preadmit MELI MELARA [facility] SLEEP VANESSA G47.33 [id number] 09/28/2018 09:40:00 PEN Preadmit CHEMA BECERRIL DO [facility] ENDO COLOGUARD+ [id number] 01/31/2017 08:06:00 Document Registration
[2018-09-28 10:05] VITALS: BP 180/89
--- NOTE | 2018-09-28 10:06 | Progress Note-Post Operative ---
Post-Operative Progess Note Surgeon (s)/Maintenance Machinist (s) Surgeon CHEMA BECERRIL DO Maintenance Machinist: na Pre-Operative Diagnosis +cologuard Post-Operative Diagnosis colon polyps minimal diverticulsosis Procedure & Operative Findings Date of Procedure 09/28/18 Procedure Performed/Findings colonoscopy with hot bx polypectomy x 13 snare polypectomy x 3 yury inking rectosigmoid polyp Anesthesia Type per mainframe analyst Estimated Blood Loss Estimated blood loss (mL): none Specimens/Packing Specimens Removed colon polyps CHEMA BECERRIL DO Sep 28, 2018 10:06
--- NOTE | 2018-09-28 10:07 | Discharge Inst-Simple/Standard ---
Discharge Inst-Standard Patient Instructions/Follow Up Plan of Care/Instructions/FU: 2 weeks Bryan Activity as Tolerated: Yes Discharge Diet: Regular Diet CHEMA BECERRIL DO Sep 28, 2018 10:07
[2018-09-28 10:50] VITALS: BP 160/88
[2018-09-28 11:05] VITALS: BP 160/88
--- NOTE | 2018-09-28 11:05 | Anesthesia-General Post-Op ---
MAC Patient Condition Mental Status/LOC: Same as Preop Cardiovascular: Satisfactory Nausea/Vomiting: Absent Respiratory: Satisfactory Pain: Controlled Complications: Absent Post Op Complications Complications None Follow Up Care/Instructions Patient Instructions None needed. Anesthesiology Discharge Order Discharge Order Patient is doing well, no complaints, stable vital signs, no apparent adverse anesthesia problems. No complications reported per nursing. LORAINE URIARTE CRNA Sep 28, 2018 11:05
--- NOTE | 2018-09-28 11:05 | NUR ---
HAS PASSED FLATUS AND TAKING PO FLUIDS WITHOUT PROBLEM THROUGHOUT RECOVERY. DENIES COMPLAINTS. STATES HE IS READY FOR DISMISSAL.
--- NOTE | 2018-09-28 14:47 | OPERATIVE REPORT ---
DATE OF SERVICE: 09/28/2018 PREOPERATIVE DIAGNOSIS: Positive Cologuard test. POSTOPERATIVE DIAGNOSIS: Multiple colon polyps and minimal diverticulosis. PROCEDURE: Colonoscopy with hot biopsy polypectomy x13, snare polypectomy x3 and Daphne inking of rectosigmoid polyp. INDICATIONS: The patient is a 68-year-old male who had positive Cologuard test. He understands risks and benefits of the procedure and wishes to proceed with procedure. Consent was signed on the chart. DESCRIPTION OF PROCEDURE: The patient was taken to the endoscopy suite, placed in left lateral recumbent position. Timeout was performed. Digital rectal exam was performed. There were no palpable polyps, masses or ulcerations. Scope was inserted into the rectum and advanced all the way to the cecum with minimal difficulty. Prep was adequate. Scope was then slowly retracted back. There were three polyps in the cecum, which hot biopsy polypectomy was performed. Scope was then continued to be slowly retracted back. There were three polyps in the ascending colon polyp, all clustered together which hot biopsy polypectomy was performed on these. Scope was continuously retracted back. There were no other polyps, masses or ulcerations within the ascending colon. Within the proximal transverse colon, a small polyp was present, which hot biopsy polypectomy was performed. In the distal transverse colon, there were 2 small polyps, which hot biopsy polypectomy was performed. There was one large polyp, snare polypectomy was performed. This was then suctioned and had to be withdrawn through the colon to obtain specimen. Scope was in the rectum and advanced all the way back to the distal transverse colon where a snare polypectomy was performed. Scope was then continued to be slowly retracted back. There were no polyps, mass or ulcerations within the descending colon. In the sigmoid colon, there was a large polyp towards the proximal portion which snare polypectomy was performed. Scope was used to suction, but was unable to go through the suction, so the scope had to be withdrawn with the specimen, which was then obtained. Scope was then reinserted into the rectum and then advanced up to the sigmoid junction, which snare polypectomy was performed. Scope was then slowly retracted back. A minimal amount of diverticulosis present. At the rectosigmoid junction, there is a large polyp present, which snare polypectomy was performed. This was then suctioned and withdrawn. The scope was reinserted and a total of 2 mL of Daphne ink was injected marking the area of this larger polyp. Scope was then continued to be slowly retracted back to the rectum where there are four small polyps in the rectum which hot biopsy polypectomy was performed on these. Scope was then retroflexed noting no other pathology. Scope was returned to its normal position, slowly withdrawn until completely removed. The patient tolerated procedure well without any complications and taken to recovery room in stable condition. The patient will follow up in 2 weeks in the office to discuss pathology results. The patient will need repeat colonoscopy in 6 months to reevaluate the area. Job ID: [id number] DocumentID: [id number] Dictated Date: 09/28/2018 10:10:58 Jig Worker Date: 09/28/2018 14:47:11 Dictated By: CHEMA BECERRIL DO
== END 2018-09-28 11:05 | disposition home or self-care (01) ==
LOC: ENDO 08:09
PROVIDERS: ATTEND Surgery
DX: D12.0 Benign neoplasm of cecum (principal); D12.2 Benign neoplasm of ascending colon; D12.3 Benign neoplasm of transverse colon; D12.5 Benign neoplasm of sigmoid colon; D12.8 Benign neoplasm of rectum; K57.30 Diverticulosis of large intestine without perforation or abscess without bleeding; I10 Essential (primary) hypertension; Z87.891 Personal history of nicotine dependence; Z79.899 Other long term (current) drug therapy

== ENCOUNTER → 2022-01-20 | Outpatient (CLI) | payer MEDICARE, MEDICAID ==
[~2022-01-20] MED LIST changes: +AMLO-251 PO; -AMLO10TA7 PO
--- NOTE | 2022-01-20 10:58 | Diagnostic Imaging Report ---
PROCEDURE: US Scrotum. TECHNIQUE: Multiple Real-time grayscale images were obtained over the scrotum in various projections bilaterally. INDICATION: History of right testicular cancer with orchiectomy. COMPARISON: 09/20/2017 ultrasound. FINDINGS: The left testicle measures 5.7 x 1.7 x 2.9 cm. No testicular masses are seen. The epididymis is somewhat heterogeneous. There is a complex cyst measuring 1.2 cm x 1.5 cm in the head of the epididymis. There is no hypervascularity. No hydrocele or varicocele. IMPRESSION: 1. No evidence of testicular tumor. 2. Complex cyst in the head of the epididymis, consistent with spermatocele. Dictated by: Dictated on workstation # [id number]
== END ==
LOC: RAD 09:00
PROVIDERS: ATTEND Urology
DX: N50.3 Cyst of epididymis (principal)
CPT/HCPCS: 76870

== ENCOUNTER 2022-02-04 05:30 | Outpatient (CLI) | payer MEDICARE, MEDICAID ==
[2022-02-04] MEDS ORDERED: LISI10TA25 PO (14:58)
== END 2022-02-04 15:11 ==
LOC: PREOP 05:30
PROVIDERS: ATTEND Urology
DX: Z01.818 Encounter for other preprocedural examination (principal); N43.40 Spermatocele of epididymis, unspecified; Z98.890 Other specified postprocedural states

== ENCOUNTER 2022-02-12 06:23 | Day surgery (SDC) | payer MEDICARE, MEDICAID ==
[~2022-02-12] VITALS: Ht 177.8 cm; Wt 84.1 kg
[2022-02-12] VITALS (11 sets, daily range): BP systolic 86–177; BP diastolic 54–93
[~2022-02-12 06:23] MED LIST changes: +LISI10TA25 PO
[2022-02-12] MEDS ORDERED: ceFAZolin INJECTION 1,000 MG ONE (07:01)
[2022-02-12] MEDS: LACTATED RINGERS 1,000 ML IV PRN ×2 (07:03→08:57)
[2022-02-12] MEDS ORDERED: ceFAZolin INJECTION 1,000 MG VIAL IV ONE ×2 (07:15→09:00)
--- NOTE | 2022-02-12 07:21 | Progress Note-Pre Operative ---
Pre-Operative Progress Note Date of Available H&P: Feb 12, 2022 Date H&P Reviewed: Feb 12, 2022 Time H&P Reviewed: 07:21 Changes from last HP NONE Pre-Operative Diagnosis: LT EPIDIDYMAL CYST VANESSA LOZANO MD Feb 12, 2022 07:21
--- NOTE | 2022-02-12 07:26 | Progress Note-Post Operative ---
Post-Operative Progess Note Surgeon (s)/Ultrasound Spec (s) Surgeon VANESSA LOZANO MD Ultrasound Spec: NONE Pre-Operative Diagnosis LT EPIDIDYMAL CYST Post-Operative Diagnosis SAME Procedure & Operative Findings Date of Procedure 02/12/22 Procedure Performed/Findings EXCISION OF ABOVE Anesthesia Type GENERAL Estimated Blood Loss Estimated blood loss (mL): NEGLIGIBLE Specimens/Packing Specimens Removed LT EPIDIDYMAL CYST Packin/4# LAURI DRAIN VANESSA LOZANO MD Feb 12, 2022 07:26
--- NOTE | 2022-02-12 07:28 | Discharge Inst-Urology ---
Discharge Inst-Urology Reconcile Patient Problems Problems Reviewed?: Yes Final Diagnosis LT EPIDIDYMAL CYST Patient Instructions/Follow Up Plan/Assessment/Instructions Please make appointment to been seen in office in 2 weeks. REST till then and scrotal support Ice to scrotum in RR and for 6 hours at home and then PRN Keep bowels soft and moving Increase oral fluids for 48 hours and then as needed. Diet as tolerated. If questions or concerns contact your physician Or seek help at emergency department. VANESSA LOZANO MD Feb 12, 2022 07:28
[2022-02-12] MEDS ORDERED: MIDAZOLAM 2 MG/2 ML (VERSED) VIAL ONE (07:54)
[2022-02-12] MEDS ORDERED: LIDOCAINE PF 2% 5 ML (XYLOCAINE) VIAL ONE (07:54)
[2022-02-12] MEDS ORDERED: proPOfol 200 MG/20 ML (DIPRIVAN) VIAL IV ONE (07:54)
[2022-02-12] MEDS ORDERED: fentaNYL INJ 100 MCG/2 ML AMP ONE ×2 (07:54→10:11)
[2022-02-12] MEDS ORDERED: SEVOFLURANE (ULTANE) 15 ML INHAL SOLN ONE (08:57)
[2022-02-12] MEDS ORDERED: ONDANSETRON 4 MG/2 ML (SDV) Z0FRAN ONE (08:57)
[2022-02-12] MEDS ORDERED: ATROPINE INJ 0.4 MG/ML SDV ONE (09:00)
--- NOTE | 2022-02-12 09:14 | Anesthesia-General Post-Op ---
General Patient Condition Mental Status/LOC: Same as Preop Cardiovascular: Satisfactory Nausea/Vomiting: Absent Respiratory: Satisfactory Pain: Controlled Complications: Absent Post Op Complications Complications None Follow Up Care/Instructions Patient Instructions None needed. Anesthesia/Patient Condition Patient Condition Patient is doing well, no complaints, stable vital signs, no apparent adverse anesthesia problems. No complications reported per nursing. VAIBHAV SOMMERS CRNA Feb 12, 2022 09:14
[2022-02-12] MEDS ORDERED: MEPERIDINE (DEMEROL) INJ 50 MG/ML IVP ONE (09:15)
[2022-02-12] MEDS ORDERED: morphine INJ 10 MG/ML 1ML (SYR OR VIAL) IVP ONE (09:15)
[2022-02-12] MEDS ORDERED: ONDANSETRON 4 MG/2 ML (SDV) Z0FRAN IVP PRN (09:15)
[2022-02-12] MEDS ORDERED: fentaNYL INJ 100 MCG/2 ML AMP IVP ONE (09:15)
[2022-02-12] MEDS ORDERED: fentaNYL INJ 100 MCG/2 ML AMP IVP PRN (10:15)
--- NOTE | 2022-02-12 17:47 | OPERATIVE REPORT ---
DATE OF SERVICE: 02/12/2022 PREOPERATIVE DIAGNOSIS: Left epididymal cyst. POSTOPERATIVE DIAGNOSIS: Left epididymal cyst. OPERATION PERFORMED: Excision of left epididymal cyst. SURGEON: Kentrell Lozano MD ANESTHESIA: General. COMPLICATIONS: None. DESCRIPTION OF PROCEDURE: Under satisfactory general anesthesia, the patient in supine position, genitalia were prepped and draped in the usual sterile fashion. Incision was made in the median raphe, carried through the left scrotal compartment. The testicle and appendages were delivered in the wound. These were cauterized as the dissection was proceeding. Again identified, an epididymal cyst. It was completely excised. Then, the edges were sutured with running 3-0 chromic catgut to prevent recurrence. Hemostasis was complete. Testicle was replaced into the scrotum, which was drained with a quarter of an inch Ledbetter drain brought through a separate stab wound in the bottom of the scrotum, secured in position with a 3-0 chromic catgut. Closure was performed in layer, the dartos with a running 3-0 chromic catgut and the skin was interrupted 4-0 Vicryl. Telfa, fluffs and scrotal support was applied. Estimated blood loss was negligible. Needle, sponge, instruments correct x2. The patient tolerated the procedure and anesthesia well and was sent to recovery room in stable condition. Job ID: [id number] DocumentID: [id number] Dictated Date: 02/12/2022 09:16:35 Student Life Dean Date: 02/12/2022 17:46:24 Dictated By: KENTRELL LOZANO MD
== END 2022-02-12 11:08 | disposition home or self-care (01) ==
LOC: SDC 06:23
PROVIDERS: ATTEND Urology
DX: N50.3 Cyst of epididymis (principal); N45.1 Epididymitis; N50.89 Other specified disorders of the male genital organs
CPT/HCPCS: 87081